=== PATIENT | female | born 1980 | race Caucasian/White ===

== ENCOUNTER 2017-07-27 09:16 | Emergency (ER) | payer SELFPAY ==
[~2017-07-27] VITALS: Ht 157.5 cm; Wt 65.5 kg
[2017-07-27 09:16] VITALS: BP 136/96
[2017-07-27] MEDS ORDERED: TESS100C PO (10:12)
[2017-07-27] MEDS ORDERED: AUGM875T28 PO (10:12)
[2017-07-27] MEDS ORDERED: DIFL150T PO (10:12)
== END 2017-07-27 10:19 | disposition home or self-care (01) ==
LOC: M ED 09:16
DX: J01.90 Acute sinusitis, unspecified (principal); F17.200 Nicotine dependence, unspecified, uncomplicated; Z86.73 Personal history of transient ischemic attack (TIA), and cerebral infarction without residual deficits; M19.90 Unspecified osteoarthritis, unspecified site; M54.9 Dorsalgia, unspecified; F41.9 Anxiety disorder, unspecified; F32.9 Major depressive disorder, single episode, unspecified

== ENCOUNTER 2017-09-14 12:29 | Emergency (ER) | payer SELFPAY ==
[~2017-09-14] VITALS: Ht 157.5 cm; Wt 150.0 kg
[~2017-09-14 12:29] MED LIST: AUGM875T28 PO; DIFL150T PO; TESS100C PO
[2017-09-14 12:45] VITALS: BP 142/88
[2017-09-14] MEDS ORDERED: FLON1SPR (14:25)
[2017-09-14] MEDS ORDERED: AUGM875T28 PO (14:25)
== END 2017-09-14 14:30 | disposition home or self-care (01) ==
LOC: M ED 12:29
DX: J01.90 Acute sinusitis, unspecified (principal); R05 Cough; F17.200 Nicotine dependence, unspecified, uncomplicated

== ENCOUNTER 2018-02-28 14:42 | Emergency (ER) | payer SELFPAY ==
[2018-02-28 16:13] LABS: BASO # 0.1 10^3/uL (0.0-0.2); BASO % 1.2 % (0.0-1.0); EOS # 0.1 10^3/uL (0.0-0.50); EOS % 1.4 % (0.0-3.0); HEMATOCRIT 40.6 % (36.0-47.0); HEMOGLOBIN 13.8 g/dl (12.0-15.5); IMMATURE GRANULOCYTE % 0.2 % (0-3.0); LYMPH # 2.3 10^3/uL (1.5-4.5); LYMPH % 45.4 % (24.0-44.0); MEAN CORPUSCULAR HEMOGLOBIN 31.4 pg (27.0-33.0); MEAN CORPUSCULAR VOLUME 92.3 fl (80.0-96.0); MONO # 0.6 10^3/uL (0.0-0.8); NEUTROPHILS # 2.1 10^3/uL (1.8-7.7); NEUTROPHILS % 40.8 % (36.0-66.0); PLATELET COUNT, AUTOMATED 332 10^3/uL (150-450); RED CELL DISTRIBUTION WIDTH 12.2 % (11.5-14.5)
[2018-02-28 16:21] LABS: INR 0.97
[2018-02-28 16:54] LABS: POS COUNT POS FLAG
[2018-02-28 17:21] LABS: ACETAMINOPHEN LEVEL < 2.0 UG/ML (10.0-30.0); ALBUMIN 3.4 GM/DL (3.2-5.2); ALBUMIN/GLOBULIN RATIO 0.97 (1.00-1.93); ALKALINE PHOSPHATASE 93 U/L (45-117); ALT/SGPT 24 U/L (12-78); ANION GAP 7 MEQ/L (8-16); AST/SGOT 15 U/L (7-37); BILIRUBIN,DIRECT < 0.1 MG/DL (0.0-0.2); BILIRUBIN,TOTAL 0.3 MG/DL (0.2-1.0); BLOOD UREA NITROGEN 11 MG/DL (7-18); CALCIUM LEVEL 8.6 MG/DL (8.5-10.1); CARBON DIOXIDE LEVEL 25 MEQ/L (21-32); CHLORIDE LEVEL 109 MEQ/L (98-107); CPK CREATINE PHOSPHOKINASE 42 U/L (26-192); CREATININE FOR GFR 0.89 MG/DL (0.55-1.30); ETHYL ALCOHOL (ETHANOL) < 0.003 % (0.000-0.010); GLOMERULAR FILTRATION RATE > 60.0 (>60); GLUCOSE, FASTING 79 MG/DL (70-100); POTASSIUM SERUM 3.8 MEQ/L (3.5-5.1); SALICYLATE LEVEL 1.9 MG/DL (5.0-30.0); SODIUM LEVEL 141 MEQ/L (136-145); TOTAL PROTEIN 6.9 GM/DL (6.4-8.2); TROPONIN I < 0.02 NG/ML (< 0.10)
[2018-02-28 17:22] LABS: CK-MB VALUE MASS < 1.0 NG/ML (<3.6); CONTROL LINE HCG INT CTR LINE PRESENT; HCG, SERUM QUALITATIVE NEGATIVE (NEGATIVE); MB/CK RELATIVE INDEX 2.38 (< OR =4)
== END 2018-02-28 21:38 | disposition left against medical advice (07) ==
LOC: M ED 21:38
DX: R20.2 Paresthesia of skin (principal); Z53.21 Procedure and treatment not carried out due to patient leaving prior to being seen by health care provider; Z86.73 Personal history of transient ischemic attack (TIA), and cerebral infarction without residual deficits; F17.200 Nicotine dependence, unspecified, uncomplicated; Z82.49 Family history of ischemic heart disease and other diseases of the circulatory system; Z82.3 Family history of stroke; Z80.9 Family history of malignant neoplasm, unspecified
CPT/HCPCS: 70551

== ENCOUNTER 2018-03-22 16:43 | Inpatient (IN) | payer SELFPAY ==
[2018-03-22] MEDS: cefTRIAXone SOD 2 GM in D5W MINI-BAG PLUS 50 ML IV (17:00)
[2018-03-22] MEDS: NS 1,800 ML in APPROPRIATE DILUENT 1 EA IV (17:00)
[2018-03-22] MEDS: ACETAMINOPHEN 325 MG TAB PO (17:08)
[2018-03-22 17:24] LABS: HEMATOCRIT 34.9 % (36.0-47.0); HEMOGLOBIN 12.2 g/dl (12.0-15.5); MEAN CORPUSCULAR VOLUME 88.8 fl (80.0-96.0); PLATELET COUNT, AUTOMATED 135 10^3/uL (150-450); RED BLOOD COUNT 3.93 10^6/uL (4.00-5.40); VENOUS BASE EXCESS -4.9 (-2.0-2.0); VENOUS HCO3 17.8 MEQ/L (23.0-27.0); VENOUS O2 SATURATION 90.6 % (60.0-80.0); VENOUS PARTIAL PRESSURE CO2 26.8 mmHg (38.0-50.0); VENOUS PARTIAL PRESSURE O2 56.1 mmHg (30.0-50.0); VENOUS PH 7.439 UNITS (7.330-7.430); VENOUS STANDARD HCO3 20.3 MEQ/L; VENOUS TOTAL CO2 18.6 MEQ/L (24.0-28.0); WHITE BLOOD COUNT 4.8 10^3/uL (4.0-10.0)
[2018-03-22 17:33] LABS: ADD MANUAL DIFFER YES; DIFF SLIDE NUMBER 277; INR 1.21; POSITIVE DIFF POS FLAG; POSITIVE MORPH POS FLAG; PROTHROMBIN TIME 15.5 SECONDS (12.4-14.5)
[2018-03-22 17:54] LABS: ALBUMIN 3.1 GM/DL (3.2-5.2); ALBUMIN/GLOBULIN RATIO 0.97 (1.00-1.93); ALKALINE PHOSPHATASE 167 U/L (45-117); ALT/SGPT 361 U/L (12-78); AMYLASE 54 U/L (25-115); ANION GAP 9 MEQ/L (8-16); AST/SGOT 701 U/L (7-37); BILIRUBIN,DIRECT 0.7 MG/DL (0.0-0.2); BILIRUBIN,TOTAL 1.4 MG/DL (0.2-1.0); BLOOD UREA NITROGEN 12 MG/DL (7-18); C REACTIVE PROTEIN QUANTITATIV 2.63 MG/DL (0.00-0.30); CARBON DIOXIDE LEVEL 21 MEQ/L (21-32); CHLORIDE LEVEL 107 MEQ/L (98-107); CPK CREATINE PHOSPHOKINASE 70 U/L (26-192); CREATININE FOR GFR 1.17 MG/DL (0.55-1.30); GLOMERULAR FILTRATION RATE 54.8 (>60); GLUCOSE, FASTING 102 MG/DL (70-100); SODIUM LEVEL 137 MEQ/L (136-145); TOTAL PROTEIN 6.3 GM/DL (6.4-8.2); TROPONIN I < 0.02 NG/ML (< 0.10)
[2018-03-22 17:55] LABS: CK-MB VALUE MASS < 1.0 NG/ML (<3.6); MB/CK RELATIVE INDEX 1.42 (< OR =4)
[2018-03-22 17:57] LABS: ACETAMINOPHEN LEVEL < 2.0 UG/ML (10.0-30.0); ETHYL ALCOHOL (ETHANOL) < 0.003 % (0.000-0.010); SALICYLATE LEVEL < 1.7 MG/DL (5.0-30.0)
[2018-03-22 18:00] LABS: LACTIC ACID SEPSIS PROTOCOL 4.9 MMOL/L (0.4-2.0)
[2018-03-22] MEDS ORDERED: IBUPROFEN 800 MG TAB As Ordered (18:15)
[2018-03-22] MEDS: VANCOMYCIN HCL 1,000 MG, VIAL MATE ADAPTER 1 EACH in D5W 250 ML IV ×2 (18:20→20:13)
[2018-03-22] MEDS: IBUPROFEN 800 MG TAB PO (18:20)
[2018-03-22] MEDS ORDERED: ISOVUE-370 76% 100ML VIAL (Q9967) As Ordered (18:27)
[2018-03-22 18:30] LABS: ATYPICAL LYMPH 2 % (0-5); BANDS 14 % (< 11); BASOPHILS 2 % (0-4); LYMPHOCYTES 13 % (16-52); METAMYELOCYTES 1 % (0-0); NEUTROPHILS 68 % (35-75)
[2018-03-22 18:31] LABS: PLATELET ESTIMATE DECREASED (NORMAL); TOXIC VACUOLATION 1+
[2018-03-22] MEDS: NS 1,000 ML IV ×2 (19:15→20:00)
[2018-03-22 19:22] LABS: APPEARANCE, URINE CLEAR (CLEAR); BACTERIA, URINE AUTO NEGATIVE (NEGATIVE); BILIRUBIN, URINE AUTO NEGATIVE (NEGATIVE); BLOOD, URINE BLOOD 1+ (NEGATIVE); COLOR, URINE AMBER (YELLOW); GLUCOSE, URINE (UA) AUTO NEGATIVE (NEGATIVE); KETONE, URINE AUTO NEGATIVE (NEGATIVE); LEUKOCYTE ESTERASE, URINE AUTO NEGATIVE (NEGATIVE); NITRITE, URINE AUTO NEGATIVE (NEGATIVE); PROTEIN, URINE AUTO 1+ mg/dL (NEGATIVE); RBC, URINE AUTO 3 /HPF (0-3); SPECIFIC GRAVITY URINE AUTO 1.014 (1.002-1.035); SQUAMOUS EPITHELIAL CELL UR AU 2 /HPF (0-6); WBC, URINE AUTO 1 /HPF (0-3)
[2018-03-22 19:45] LABS: HIV 1&2 SCREEN CENTAUR NEGATIVE (NEGATIVE)
[2018-03-22 20:06] LABS: AMPHETAMINES LEVEL URINE POSITIVE (NEGATIVE); BARBITURATES URINE NEGATIVE (NEGATIVE); BENZODIAZEPINES URINE NEGATIVE (NEGATIVE); CANNABINOIDS URINE NEGATIVE (NEGATIVE); COCAINE METABOLITE URINE NEGATIVE (NEGATIVE); METHADONE URINE NEGATIVE (NEGATIVE); OPIATES URINE NEGATIVE (NEGATIVE); PHENCYCLIDINE URINE NEGATIVE (NEGATIVE)
[2018-03-22 20:31] LABS: MAGNESIUM LEVEL 1.5 MG/DL (1.8-2.4)
[2018-03-22] MEDS: PIPERACILLIN/TAZOBACTAM SOD 3.375 GM in D5W MINI-BAG PLUS 50 ML IV (23:48)
[2018-03-23] MEDS: MAG SULF 1GM/100ML (MAG RUN) 1 GM in APPROPRIATE DILUENT 1 EA IV (01:29)
[2018-03-23 04:30] LABS: HEMATOCRIT 31.5 % (36.0-47.0); HEMOGLOBIN 10.9 g/dl (12.0-15.5); MEAN CORPUSCULAR HEMOGLOBIN 31.3 pg (27.0-33.0); MEAN CORPUSCULAR HGB CONC 34.6 g/dl (32.0-36.5); MEAN CORPUSCULAR VOLUME 90.5 fl (80.0-96.0); PLATELET COUNT, AUTOMATED 104 10^3/uL (150-450); RED BLOOD COUNT 3.48 10^6/uL (4.00-5.40); RED CELL DISTRIBUTION WIDTH 12.6 % (11.5-14.5)
[2018-03-23 04:34] LABS: POSITIVE MORPH POS FLAG
[2018-03-23 04:35] LABS: ADD MANUAL DIFFER YES; DIFF SLIDE NUMBER 59
[2018-03-23 04:48] LABS: ALBUMIN 2.3 GM/DL (3.2-5.2); ALBUMIN/GLOBULIN RATIO 0.77 (1.00-1.93); ALKALINE PHOSPHATASE 105 U/L (45-117); ALT/SGPT 224 U/L (12-78); ANION GAP 7 MEQ/L (8-16); AST/SGOT 255 U/L (7-37); BLOOD UREA NITROGEN 13 MG/DL (7-18); CALCIUM LEVEL 7.1 MG/DL (8.5-10.1); CARBON DIOXIDE LEVEL 20 MEQ/L (21-32); CHLORIDE LEVEL 114 MEQ/L (98-107); CREATININE FOR GFR 0.93 MG/DL (0.55-1.30); GLOMERULAR FILTRATION RATE > 60.0 (>60); GLUCOSE, FASTING 97 MG/DL (70-100); POTASSIUM SERUM 4.2 MEQ/L (3.5-5.1); SODIUM LEVEL 141 MEQ/L (136-145); TOTAL PROTEIN 5.3 GM/DL (6.4-8.2)
[2018-03-23 04:58] LABS: BANDS 11 % (< 11); EOSINOPHILS 1 % (0-5); LYMPHOCYTES 3 % (16-52); METAMYELOCYTES 4 % (0-0); MONOCYTES 3 % (0-8); MYELOCYTES 1 % (0-0); NEUTROPHILS 77 % (35-75)
[2018-03-23 05:00] LABS: PLATELET ESTIMATE DECREASED (NORMAL); TOXIC VACUOLATION 1+
[2018-03-23] MEDS: PIPERACILLIN/TAZOBACTAM SOD 3.375 GM in D5W MINI-BAG PLUS 50 ML IV ×4 (05:16→23:58)
[2018-03-23] MEDS: NS 1,000 ML IV ×2 (05:16→12:11)
[2018-03-23 06:54] LABS: MAGNESIUM LEVEL 2.1 MG/DL (1.8-2.4)
[2018-03-23] MEDS: ENOXAPARIN 40 MG/0.4 ML SYRINGE (J1650) SC (09:12)
[2018-03-23] MEDS: VANCOMYCIN HCL 1,000 MG, VIAL MATE ADAPTER 1 EACH in D5W 250 ML IV ×2 (09:13→20:51)
[2018-03-23] MEDS: PANTOPRAZOLE 40MG TAB (PROTONIX) PO (09:13)
[2018-03-23] MEDS: ACETAMINOPHEN TAB 650MG DOSE (2X325MG) PO ×3 (12:12→20:52)
[2018-03-24] MEDS: PIPERACILLIN/TAZOBACTAM SOD 3.375 GM in D5W MINI-BAG PLUS 50 ML IV ×4 (05:45→23:46)
[2018-03-24 05:46] LABS: HEMATOCRIT 30.9 % (36.0-47.0); HEMOGLOBIN 10.6 g/dl (12.0-15.5); MEAN CORPUSCULAR HEMOGLOBIN 31.2 pg (27.0-33.0); MEAN CORPUSCULAR HGB CONC 34.3 g/dl (32.0-36.5); MEAN CORPUSCULAR VOLUME 90.9 fl (80.0-96.0); RED CELL DISTRIBUTION WIDTH 12.7 % (11.5-14.5); WHITE BLOOD COUNT 11.2 10^3/uL (4.0-10.0)
[2018-03-24 06:08] LABS: ALBUMIN 2.2 GM/DL (3.2-5.2); ALBUMIN/GLOBULIN RATIO 0.71 (1.00-1.93); ALKALINE PHOSPHATASE 87 U/L (45-117); ALT/SGPT 135 U/L (12-78); ANION GAP 6 MEQ/L (8-16); AST/SGOT 86 U/L (7-37); BLOOD UREA NITROGEN 13 MG/DL (7-18); C REACTIVE PROTEIN QUANTITATIV 9.71 MG/DL (0.00-0.30); CALCIUM LEVEL 7.6 MG/DL (8.5-10.1); CARBON DIOXIDE LEVEL 22 MEQ/L (21-32); CHLORIDE LEVEL 116 MEQ/L (98-107); CREATININE FOR GFR 0.83 MG/DL (0.55-1.30); GLOMERULAR FILTRATION RATE > 60.0 (>60); GLUCOSE, FASTING 88 MG/DL (70-100); POTASSIUM SERUM 3.8 MEQ/L (3.5-5.1); SODIUM LEVEL 144 MEQ/L (136-145); TOTAL PROTEIN 5.3 GM/DL (6.4-8.2)
[2018-03-24] MEDS: IBUPROFEN 400 MG TAB PO (06:17)
[2018-03-24 06:24] LABS: ADD MANUAL DIFFER YES; DIFF SLIDE NUMBER 36; IMMATURE PLATELET FRACTION % 2.1 % (0.0-9.6); PLATELET COUNT, AUTOMATED 99 10^3/uL (150-450); POSITIVE MORPH POS FLAG
[2018-03-24 06:26] LABS: ATYPICAL LYMPH 1 % (0-5); EOSINOPHILS 4 % (0-5); LYMPHOCYTES 27 % (16-52); MONOCYTES 5 % (0-8); NEUTROPHILS 63 % (35-75); PLATELET ESTIMATE DECREASED (NORMAL)
[2018-03-24 06:33] LABS: BILIRUBIN,TOTAL 0.3 MG/DL (0.2-1.0)
[2018-03-24 06:37] LABS: CK-MB VALUE MASS < 1.0 NG/ML (<3.6); CPK CREATINE PHOSPHOKINASE 32 U/L (26-192); MB/CK RELATIVE INDEX 3.12 (< OR =4); TROPONIN I < 0.02 NG/ML (< 0.10)
[2018-03-24 08:18] LABS: VANCOMYCIN LEVEL TROUGH 6.1 UG/ML (10.0-20.0)
[2018-03-24] MEDS: ONDANSETRON 4MG/2ML VIAL (J2405) IV (08:25)
[2018-03-24] MEDS: VANCOMYCIN HCL 1,000 MG, VIAL MATE ADAPTER 1 EACH in D5W 250 ML IV ×2 (09:19→16:40)
[2018-03-24] MEDS: PANTOPRAZOLE 40MG TAB (PROTONIX) PO (09:22)
[2018-03-24] MEDS: ENOXAPARIN 40 MG/0.4 ML SYRINGE (J1650) SC (09:22)
[2018-03-24] MEDS: ACETAMINOPHEN TAB 650MG DOSE (2X325MG) PO ×3 (09:23→21:17)
[2018-03-25] MEDS: VANCOMYCIN HCL 1,000 MG, VIAL MATE ADAPTER 1 EACH in D5W 250 ML IV (01:19)
[2018-03-25] MEDS: PIPERACILLIN/TAZOBACTAM SOD 3.375 GM in D5W MINI-BAG PLUS 50 ML IV (05:21)
[2018-03-25 07:06] LABS: HEMATOCRIT 31.6 % (36.0-47.0); MEAN CORPUSCULAR HEMOGLOBIN 30.9 pg (27.0-33.0); MEAN CORPUSCULAR HGB CONC 34.8 g/dl (32.0-36.5); MEAN CORPUSCULAR VOLUME 88.8 fl (80.0-96.0); PLATELET COUNT, AUTOMATED 146 10^3/uL (150-450); RED BLOOD COUNT 3.56 10^6/uL (4.00-5.40); RED CELL DISTRIBUTION WIDTH 12.5 % (11.5-14.5); WHITE BLOOD COUNT 6.8 10^3/uL (4.0-10.0)
[2018-03-25 07:24] LABS: ANION GAP 8 MEQ/L (8-16); BLOOD UREA NITROGEN 8 MG/DL (7-18); CALCIUM LEVEL 7.9 MG/DL (8.5-10.1); CARBON DIOXIDE LEVEL 22 MEQ/L (21-32); CHLORIDE LEVEL 113 MEQ/L (98-107); CREATININE FOR GFR 0.87 MG/DL (0.55-1.30); GLOMERULAR FILTRATION RATE > 60.0 (>60); GLUCOSE, FASTING 97 MG/DL (70-100); POTASSIUM SERUM 3.8 MEQ/L (3.5-5.1); SODIUM LEVEL 143 MEQ/L (136-145)
[2018-03-25] MEDS: ENOXAPARIN 40 MG/0.4 ML SYRINGE (J1650) SC (09:24)
[2018-03-25] MEDS: PANTOPRAZOLE 40MG TAB (PROTONIX) PO (09:24)
[2018-03-25 11:05] LABS: HEPATITIS B SURFACE ANTIGEN NEGATIVE (NEGATIVE)
[2018-03-25 11:33] LABS: HEPATITIS B CORE ANTIBODY IGM NEGATIVE (NEGATIVE)
[2018-03-25 11:34] LABS: HEPATITIS A ANTIBODY IGM NEGATIVE (NEGATIVE)
== END 2018-03-25 11:20 | disposition home or self-care (01) | DRG 812 ==
LOC: M ED 16:43 → M ED INP 19:36 → M PCU 21:55
PROVIDERS: Hospitalist
DX: T40.3X4A Poisoning by methadone, undetermined, initial encounter (principal); R65.11 Systemic inflammatory response syndrome (SIRS) of non-infectious origin with acute organ dysfunction; E87.2 Acidosis; F17.200 Nicotine dependence, unspecified, uncomplicated; Y92.009 Unspecified place in unspecified non-institutional (private) residence as the place of occurrence of the external cause

== ENCOUNTER 2018-08-29 22:57 | Emergency (ER) | payer SELFPAY ==
[2018-08-30 00:31] LABS: BASO % 0.6 % (0.0-1.0); EOS % 0.3 % (0.0-3.0); HEMATOCRIT 37.2 % (36.0-47.0); HEMOGLOBIN 13.3 g/dl (12.0-15.5); IMMATURE GRANULOCYTE % 0.8 % (0-3.0); LYMPH # 1.6 10^3/uL (1.5-4.5); MEAN CORPUSCULAR HEMOGLOBIN 31.9 pg (27.0-33.0); MEAN CORPUSCULAR HGB CONC 35.8 g/dl (32.0-36.5); MEAN CORPUSCULAR VOLUME 89.2 fl (80.0-96.0); MONO # 0.5 10^3/uL (0.0-0.8); MONO % 8.1 % (0.0-5.0); NEUTROPHILS # 4.1 10^3/uL (1.8-7.7); NEUTROPHILS % 64.2 % (36.0-66.0); PLATELET COUNT, AUTOMATED 293 10^3/uL (150-450); RED BLOOD COUNT 4.17 10^6/uL (4.00-5.40); RED CELL DISTRIBUTION WIDTH 11.5 % (11.5-14.5); WHITE BLOOD COUNT 6.3 10^3/uL (4.0-10.0)
[2018-08-30] MEDS: ACYCLOVIR 200 MG CAPSULE PO (01:20)
[2018-08-30] MEDS: GABAPENTIN 300 MG CAP PO (01:20)
[2018-08-30] MEDS: BACTRIM 160MG/800MG DS TAB PO (01:20)
[2018-08-30 11:06] LABS: PROLACTIN 16.5 NG/ML
== END 2018-08-30 02:03 | disposition home or self-care (01) ==
LOC: M ED 08-30 02:03
DX: R21 Rash and other nonspecific skin eruption (principal); N64.52 Nipple discharge; H66.91 Otitis media, unspecified, right ear; Z86.73 Personal history of transient ischemic attack (TIA), and cerebral infarction without residual deficits; F15.10 Other stimulant abuse, uncomplicated
CPT/HCPCS: 76642

== ENCOUNTER 2018-11-26 10:01 | Emergency (ER) | payer SELFPAY ==
[~2018-11-26] VITALS: Ht 157.5 cm; Wt 60.5 kg
[~2018-11-26 10:01] MED LIST changes: +BACT800T5 PO; +FLON1SPR; +NEUR300C PO; +ZOVI800T PO
[2018-11-26 11:02] LABS: BASO % 0.3 % (0.0-1.0); EOS % 0.4 % (0.0-3.0); HEMATOCRIT 35.4 % (36.0-47.0); HEMOGLOBIN 12.7 g/dl (12.0-15.5); LYMPH % 28.4 % (24.0-44.0); MEAN CORPUSCULAR HEMOGLOBIN 32.6 pg (27.0-33.0); MEAN CORPUSCULAR HGB CONC 35.9 g/dl (32.0-36.5); MEAN CORPUSCULAR VOLUME 90.8 fl (80.0-96.0); MONO # 0.7 10^3/uL (0.0-0.8); MONO % 9.8 % (0.0-5.0); NEUTROPHILS # 4.2 10^3/uL (1.8-7.7); NEUTROPHILS % 60.8 % (36.0-66.0); PLATELET COUNT, AUTOMATED 267 10^3/uL (150-450); WHITE BLOOD COUNT 6.9 10^3/uL (4.0-10.0)
[2018-11-26 11:40] LABS: ALBUMIN 3.9 GM/DL (3.2-5.2); ALT/SGPT 27 U/L (12-78); BILIRUBIN,DIRECT 0.1 MG/DL (0.0-0.2); BILIRUBIN,TOTAL 0.3 MG/DL (0.2-1.0); BLOOD UREA NITROGEN 7 MG/DL (7-18); CALCIUM LEVEL 9.2 MG/DL (8.5-10.1); CARBON DIOXIDE LEVEL 26 MEQ/L (21-32); CHLORIDE LEVEL 107 MEQ/L (98-107); CREATININE FOR GFR 0.67 MG/DL (0.55-1.30); GLOMERULAR FILTRATION RATE > 60.0 (>58); GLUCOSE, FASTING 98 MG/DL (70-100); POTASSIUM SERUM 3.6 MEQ/L (3.5-5.1); SODIUM LEVEL 139 MEQ/L (136-145); TOTAL PROTEIN 7.3 GM/DL (6.4-8.2)
--- NOTE | 2018-11-26 11:52 | REP ---
RIGHT UPPER QUADRANT SONOGRAPHY: HISTORY: Right upper quadrant pain. FINDINGS: Scanning through the right upper quadrant of the abdomen demonstrates a normal-sized, homogeneous liver without focal liver lesion. The gallbladder is surgically absent. Common bile duct is normal measuring 0.4 cm in greatest diameter. Tail of the pancreas is obscured by abdominal gas. No pancreatic abnormalities observed. There is no evidence of ascites. The right kidney has a normal appearance measuring 10.6 x 5.0 x 3.5 cm. IMPRESSION: Normal right upper quadrant sonography post cholecystectomy. Electronically Signed by Rick Ricks MD 11/26/2018 08:33 P
[2018-11-26] MEDS ORDERED: PENI500T PO (12:29)
[2018-11-26 12:32] VITALS: BP 124/77
== END 2018-11-26 12:37 | disposition home or self-care (01) ==
LOC: M ED 10:01
DX: R10.11 Right upper quadrant pain (principal); K04.7 Periapical abscess without sinus; F15.20 Other stimulant dependence, uncomplicated; F17.210 Nicotine dependence, cigarettes, uncomplicated

== ENCOUNTER 2018-12-25 09:55 | Emergency (ER) | payer OTHER, SELFPAY ==
[~2018-12-25] VITALS: Ht 157.5 cm; Wt 58.6 kg
[~2018-12-25 09:55] MED LIST changes: +PENI500T PO
[2018-12-25] MEDS ORDERED: KETOROLAC 60 MG/2 ML VIAL (J1885) IM ONE (10:15)
[2018-12-25] MEDS ORDERED: PERCOCET 5MG/325MG TAB PO ONE (10:15)
[2018-12-25] MEDS ORDERED: ADACEL/BOOSTRIX VACCINE (DIPHTH/PERTUSS/ACELL/TETANUS)0.5ML SYR (90715) IM ONE (10:30)
[2018-12-25 11:45] VITALS: BP 107/66
[2018-12-25] MEDS ORDERED: NAPR-50 PO (11:51)
== END 2018-12-25 11:59 | disposition home or self-care (01) ==
LOC: EDBD 09:55 → M ED 09:55
DX: T24.001A Burn of unspecified degree of unspecified site of right lower limb, except ankle and foot, initial encounter (principal); X08.8XXA Exposure to other specified smoke, fire and flames, initial encounter; Y92.019 Unspecified place in single-family (private) house as the place of occurrence of the external cause; Z28.21 Immunization not carried out because of patient refusal
CPT/HCPCS: 96372; 99284; J1885

== ENCOUNTER 2019-01-23 15:10 | Emergency (ER) | payer MEDICAID, SELFPAY ==
[~2019-01-23] VITALS: Ht 157.5 cm; Wt 62.5 kg
[~2019-01-23 15:10] MED LIST changes: +NAPR-837 PO
[2019-01-23] MEDS ORDERED: BACITRACIN OINT 30GM TOP STA (16:23)
[2019-01-23] MEDS ORDERED: BACTRIM 160MG/800MG DS TAB PO ONE (16:30)
[2019-01-23] MEDS ORDERED: GABAPENTIN 300 MG CAP PO ONE (16:30)
[2019-01-23] MEDS ORDERED: NEOSPORIN OINT 0.9 GM PKT (FLOOR STOCK) As Ordered ONE (16:31)
[2019-01-23] MEDS ORDERED: BACT800T5 PO (16:58)
[2019-01-23] MEDS ORDERED: BACI500O8 TOP (16:58)
[2019-01-23] MEDS ORDERED: KETOROLAC 60 MG/2 ML VIAL (J1885) IM ONE (17:00)
[2019-01-23 17:25] VITALS: BP 109/70
== END 2019-01-23 17:29 | disposition home or self-care (01) ==
LOC: M ED 15:10
DX: L03.818 Cellulitis of other sites (principal); A49.02 Methicillin resistant Staphylococcus aureus infection, unspecified site; B19.20 Unspecified viral hepatitis C without hepatic coma; F17.210 Nicotine dependence, cigarettes, uncomplicated
CPT/HCPCS: 96372; 99283; J1885

== ENCOUNTER 2019-03-13 12:06 | Emergency (ER) | payer MEDICAID, OTHER ==
[~2019-03-13] VITALS: Ht 157.5 cm; Wt 61.2 kg
[~2019-03-13 12:06] MED LIST changes: +BACI500O8 TOP
[2019-03-13] MEDS ORDERED: ALLE12TA31 PO (13:20)
[2019-03-13] MEDS ORDERED: AFRI0.058 (13:20)
[2019-03-13 13:38] VITALS: BP 112/77
== END 2019-03-13 14:32 | disposition home or self-care (01) ==
LOC: M ED 12:06
DX: J30.9 Allergic rhinitis, unspecified (principal)

== ENCOUNTER 2019-03-30 11:29 | Emergency (ER) | payer OTHER ==
[~2019-03-30] VITALS: Ht 157.5 cm; Wt 61.8 kg
[~2019-03-30 11:29] MED LIST changes: +AFRI0.058; +ALLE12TA31 PO
[2019-03-30] MEDS ORDERED: ASPI81CH33 PO (11:37)
[2019-03-30] MEDS ORDERED: CEFTAROLINE FOSAMIL 600 MG in D5W MINI-BAG PLUS 50 ML IV ONE (12:00)
[2019-03-30 12:20] LABS: BASO % 0.3 % (0.0-1.0); EOS % 0.2 % (0.0-3.0); HEMATOCRIT 41.4 % (36.0-47.0); HEMOGLOBIN 13.9 g/dl (12.0-15.5); LYMPH # 2.2 10^3/uL (1.5-4.5); MEAN CORPUSCULAR HEMOGLOBIN 30.5 pg (27.0-33.0); MEAN CORPUSCULAR HGB CONC 33.6 g/dl (32.0-36.5); MEAN CORPUSCULAR VOLUME 90.8 fl (80.0-96.0); MONO % 7.9 % (0.0-5.0); NEUTROPHILS # 9.4 10^3/uL (1.8-7.7); NEUTROPHILS % 74.1 % (36.0-66.0); PLATELET COUNT, AUTOMATED 307 10^3/uL (150-450); RED BLOOD COUNT 4.56 10^6/uL (4.00-5.40); WHITE BLOOD COUNT 12.7 10^3/uL (4.0-10.0)
[2019-03-30 12:45] LABS: ALBUMIN 3.7 GM/DL (3.2-5.2); ALT/SGPT 152 U/L (12-78); BILIRUBIN,DIRECT 0.1 MG/DL (0.0-0.2); BILIRUBIN,TOTAL 0.4 MG/DL (0.2-1.0); BLOOD UREA NITROGEN 12 MG/DL (7-18); CALCIUM LEVEL 9.2 MG/DL (8.5-10.1); CARBON DIOXIDE LEVEL 28 MEQ/L (21-32); CHLORIDE LEVEL 106 MEQ/L (98-107); CREATININE FOR GFR 0.91 MG/DL (0.55-1.30); GLOMERULAR FILTRATION RATE > 60.0 (>58); GLUCOSE, FASTING 91 MG/DL (70-100); POTASSIUM SERUM 3.9 MEQ/L (3.5-5.1); SODIUM LEVEL 143 MEQ/L (136-145); TOTAL PROTEIN 7.9 GM/DL (6.4-8.2)
[2019-03-30] MEDS ORDERED: ISOVUE-370 76% 100ML VIAL (Q9967) As Ordered ONE (12:50)
[2019-03-30] MEDS ORDERED: BACTRIM 160MG/800MG DS TAB PO ONE (13:45)
[2019-03-30 13:48] VITALS: BP 119/70
[2019-03-30] MEDS ORDERED: BACT800T5 PO (13:49)
--- NOTE | 2019-03-30 14:07 | REP ---
MAXILLOFACIAL CT WITH CONTRAST: HISTORY: Left check cellulitis. CONTRAST: Isovue 370, 75 mL. Minimal mucosal thickening is present in the left maxillary and right sphenoid sinuses. The remaining sinuses are clear. The ostiomeatal units are patent. The middle and inferior nasal turbinates are partially paradoxical. There is felicia bullosa of the right middle nasal turbinate. There is mild deviation of the nasal septum to the left. The cribriform plate, medial pitts of the orbits and optic canals are intact. There is aeration of the left anterior clinoid process. The carotid canals form a segment of the posterolateral pitts of the sphenoid sinus. The sphenoid sinus septa inserts into the left internal carotid canal wall. There is minimal soft tissue thickening along the buccal surface of the left maxilla and body of the left mandible. This represents a small phlegmon. There is thickening of the left platysma muscle. Stranding is present in the overlying subcutaneous tissue. These findings are consistent with edema. The naso- and hypopharynx and larynx are normal in appearance. The salivary glands are normal in size and density. An enlarged lymph node 1.1 cm in width is present in the submental area. Small lymph nodes less than 1 cm in size are present in the internal jugular chains, posterior triangles, and submandibular areas. IMPRESSION: 1. Sinus mucosal thickening as described above. 2. There is minimal soft tissue thickening along the buccal surface of the left maxilla and body of the mandible consistent with a small phlegmon. Electronically Signed by González Lima MD 03/30/2019 02:09 P
[2019-03-31] MEDS ORDERED: BAYE325T16 PO (18:35)
== END 2019-03-30 14:02 | disposition home or self-care (01) ==
LOC: M ED 11:29
DX: L03.211 Cellulitis of face (principal); Z86.73 Personal history of transient ischemic attack (TIA), and cerebral infarction without residual deficits; M54.9 Dorsalgia, unspecified; F41.9 Anxiety disorder, unspecified; Z72.0 Tobacco use; F15.10 Other stimulant abuse, uncomplicated; F16.10 Hallucinogen abuse, uncomplicated
CPT/HCPCS: 70487; 80048; 80076; 83605; 85025; 86140; 87040; 96365; 99284; J0712; Q9967

== ENCOUNTER 2019-03-30 21:51 | Emergency (ER) | payer OTHER, SELFPAY ==
[~2019-03-30 21:51] MED LIST changes: +ASPI81CH33 PO
[2019-03-30] MEDS ORDERED: ONDANSETRON 4MG/2ML VIAL (J2405) IV ONE (22:15)
[2019-03-30] MEDS ORDERED: MORPHINE 4 MG/ML 1ML VIAL/SYRINGE (J2270) IV ONE (22:15)
[2019-03-30] MEDS ORDERED: ACETAMINOPHEN 325 MG/10.15 ML UDC PO ONE (22:15)
[2019-03-30] MEDS ORDERED: CLINDAMYCIN 900 MG in APPROPRIATE DILUENT 1 EA IV ONE (22:15)
[2019-03-30] MEDS ORDERED: LORazepam 2 MG TAB PO ONE (22:30)
[2019-03-30 23:43] VITALS: BP 130/70
[2019-03-30] MEDS ORDERED: CLINDAMYCIN 150 MG CAP PO ONE (23:45)
[2019-03-30] MEDS ORDERED: OXYCODONE/APAP 5MG/325MG(BULK FOR ED) 1 TABLET PO ONE (23:45)
[2019-03-31] MEDS ORDERED: BAYE325T16 PO (18:35)
== END 2019-03-31 00:32 | disposition home or self-care (01) ==
LOC: M ED 21:51
DX: K04.7 Periapical abscess without sinus (principal); R68.84 Jaw pain; L03.211 Cellulitis of face; B19.20 Unspecified viral hepatitis C without hepatic coma; Z72.0 Tobacco use; Z79.82 Long term (current) use of aspirin
CPT/HCPCS: 96374; 96375; 99284; J2270; J2405

== ENCOUNTER 2019-03-31 14:29 | Inpatient (IN) | payer MEDICAID, OTHER, SELFPAY ==
[~2019-03-31] VITALS: Ht 157.5 cm; Wt 62.8 kg
[2019-03-31] MEDS ORDERED: NS 1,000 ML IV ONE (16:45)
[2019-03-31 17:29] LABS: BASO % 0.2 % (0.0-1.0); EOS # 0.1 10^3/uL (0.0-0.50); EOS % 0.3 % (0.0-3.0); HEMOGLOBIN 13.2 g/dl (12.0-15.5); LYMPH % 11.6 % (24.0-44.0); MEAN CORPUSCULAR HEMOGLOBIN 30.5 pg (27.0-33.0); MEAN CORPUSCULAR HGB CONC 33.8 g/dl (32.0-36.5); MEAN CORPUSCULAR VOLUME 90.1 fl (80.0-96.0); MONO # 1.2 10^3/uL (0.0-0.8); MONO % 6.9 % (0.0-5.0); NEUTROPHILS # 13.9 10^3/uL (1.8-7.7); NEUTROPHILS % 80.4 % (36.0-66.0); PLATELET COUNT, AUTOMATED 251 10^3/uL (150-450); RED BLOOD COUNT 4.33 10^6/uL (4.00-5.40); WHITE BLOOD COUNT 17.3 10^3/uL (4.0-10.0)
[2019-03-31 17:57] LABS: ALBUMIN 3.6 GM/DL (3.2-5.2); ALT/SGPT 281 U/L (12-78); BILIRUBIN,DIRECT 0.3 MG/DL (0.0-0.2); BILIRUBIN,TOTAL 0.9 MG/DL (0.2-1.0); BLOOD UREA NITROGEN 10 MG/DL (7-18); CARBON DIOXIDE LEVEL 25 MEQ/L (21-32); CHLORIDE LEVEL 102 MEQ/L (98-107); GLOMERULAR FILTRATION RATE > 60.0 (>58); GLUCOSE, FASTING 82 MG/DL (70-100); SODIUM LEVEL 135 MEQ/L (136-145); TOTAL PROTEIN 7.3 GM/DL (6.4-8.2)
[2019-03-31] MEDS ORDERED: CEFTAROLINE FOSAMIL 600 MG in D5W MINI-BAG PLUS 50 ML IV ONE (18:15)
[2019-03-31] MEDS ORDERED: BAYE325T16 PO (18:35)
[2019-03-31] MEDS ORDERED: KETOROLAC 30 MG/ML VIAL (J1885) IV ONE (19:45)
[2019-03-31] MEDS ORDERED: NS 800 ML IV SCH (21:00)
[2019-03-31] MEDS ORDERED: ACETAMINOPHEN TAB 650MG DOSE (2X325MG) PO PRN (21:00)
[2019-03-31 21:14] LABS: ERYTHROCYTE SEDIMENTATION RATE 43 mm/hr (0-20)
--- NOTE | 2019-03-31 21:40 | HPEPDOC ---
[facility] Medical History & Physical Date of Admission Mar 31, 2019 Date of Service: Mar 31, 2019 History and Physical CHIEF COMPLAINT: L. sided facial swelling HISTORY OF PRESENT ILLNESS: Patient is a 38-year-old female with past medical history of IVDU, endocarditis, hepatitis C, and pancreatitis, fatty liver presented to ER with complaints of worsening left-sided facial swelling. Symptoms started about 2-3 days prior when she woke up with swelling on her face. She cam into the ER yesterday and received clindamycin, however did not improve and came back today. WBC went up from 12->17, T 100.7 and tachycardic HR 120. Pain and swellling reportedly had gotten worse with associated subject fevers but otherwise denies any other complaints. Does not recall any injury to the face fo pest bites that she noticed while she was sleeping. PAST MEDICAL HISTORY: Refer to [facility] PAST SURGICAL HISTORY: GB tumor s/p cholecystectomy, Tubal ligation x2 R. knee surgery Appendectomy SOCIAL HISTORY: Smokes 1ppd. Uses ecstacy and IV meth. Social alcohol. FAMILY HISTORY: Father DM Mother breast ca ALLERGIES: Please see below. REVIEW OF SYSTEMS: 10 point review of system negative except as stated in HPI HOME MEDICATIONS: Please see below. PHYSICAL EXAMINATION: General: Significant L. facial swelling with erythema. Appear uncomfortable, fidgety. Eyes: Normal sclera, EOMI, BLANCA HENT: L. facial swelling with erythema, neck supple, moist mucous membranes Cardiovascular: Tachycardic. No LE swelling. Pulmonary: Clear to auscultation b/l, no wheezing GI: Soft, nontender, nondistended Skin: Warm and dry. L. face swelling with erythema. Neuro: CN grossly intact. No focal deficits. Strengths equal b/l. Psych: oriented x 3 LABORATORY DATA: See below. IMAGING: Maxilofacial CT- MICROBIOLOGY: Please see below. ASSESSMENT AND PLAN: 1. L. facial cellulitis - Likely 2/2 insect bite while sleeping? - Did not improve after clindamycin yesterday in ER. - Given leukocytosis, fevers, and tachycardia. Treat with 30cc/kg IVF bolus. - lactic acid WNL. - c/w Ceftaroline. 2. IVDU 3. Hep C - Has not been treated but has outpatient follow up. 4. Fatty liver - Hep C vs. alcohol? - Will place on CIWA for withdrawal precaution. DVT ppx: Lovenox and SCD Code status: Full code Vital Signs Vital Signs Date Time Temp Pulse Resp B/P (MAP) Pulse Ox O2 Delivery O2 Flow Rate FiO2 03/31/19 19:28 100.7 117 20 121/80 (94) 98 Room Air Laboratory Data Labs 24H Laboratory Tests 2 03/31/19 17:04: Immature Granulocyte % (Auto) 0.6, White Blood Count 17.3H, Red Blood Count 4.33, Hemoglobin 13.2, Hematocrit 39.0, Mean Corpuscular Volume 90.1, Mean Corpuscular Hemoglobin 30.5, Mean Corpuscular Hemoglobin Concent 33.8, Red Cell Distribution Width 13.5, Platelet Count 251, Neutrophils (%) (Auto) 80.4H, Lymphocytes (%) (Auto) 11.6L, Monocytes (%) (Auto) 6.9H, Eosinophils (%) (Auto) 0.3, Basophils (%) (Auto) 0.2, Neutrophils # (Auto) 13.9H, Lymphocytes # (Auto) 2.0, Monocytes # (Auto) 1.2H, Eosinophils # (Auto) 0.1, Basophils # (Auto) 0.0, Nucleated Red Blood Cells % (auto) 0.0, Erythrocyte Sedimentation Rate 43H, Anion Gap 8, Glomerular Filtration Rate > 60.0, Calcium Level 9.0, Aspartate Amino Transf (AST/SGOT) 219H, Alanine Aminotransferase (ALT/SGPT) 281H, Alkaline Phosphatase 143H, Total Bilirubin 0.9#, Direct Bilirubin 0.3H, C-Reactive Protein, Quantitative 13.80H, Total Protein 7.3, Albumin 3.6, Albumin/Globulin Ratio 0.97L 03/31/19 18:49: Lactic Acid Level 1.1 CBC/BMP Laboratory Tests 03/31/19 17:04 Red Blood Count 4.33, Mean Corpuscular Volume 90.1, Mean Corpuscular Hemoglobin 30.5, Mean Corpuscular Hemoglobin Concent 33.8, Red Cell Distribution Width 13.5, Neutrophils (%) (Auto) 80.4 H, Lymphocytes (%) (Auto) 11.6 L, Monocytes (%) (Auto) 6.9 H, Eosinophils (%) (Auto) 0.3, Basophils (%) (Auto) 0.2, Neutrophils # (Auto) 13.9 H, Lymphocytes # (Auto) 2.0, Monocytes # (Auto) 1.2 H, Eosinophils # (Auto) 0.1, Basophils # (Auto) 0.0 Microbiology Microbiology 03/31/19 Blood Culture, Received Pending 03/31/19 Blood Culture, Received Pending 03/31/19 Gram Stain, Received Pending 03/31/19 Wound Culture, Received Pending Home Medications Scheduled PRN Aspirin (Aspirin) 325 Mg Tablet, 650 MG PO Q4-6H PRN for PAIN Allergies Coded Allergies: No Known Allergies (Unverified , 07/27/17) A-FIB/CHADSVASC A-FIB History Current/History of A-Fib/PAF?: No WADE PHELAN MD Mar 31, 2019 21:40
[2019-03-31 22:37] VITALS: BP 104/59
[2019-03-31 23:00] VITALS: BP 105/63
[2019-03-31] MEDS ORDERED: NS 1,000 ML IV SCH (23:15)
[2019-04-01] VITALS (8 sets, daily range): BP systolic 102–127; BP diastolic 59–76
[2019-04-01] MEDS ORDERED: traMADol 50 MG TAB PO PRN (03:30)
[2019-04-01] MEDS ORDERED: MORPHINE 4 MG/ML 1ML VIAL/SYRINGE (J2270) IV PRN (03:30)
[2019-04-01] MEDS: CEFTAROLINE FOSAMIL 600 MG in D5W MINI-BAG PLUS 50 ML IV SCH ×2 (06:16→18:05)
[2019-04-01 06:46] LABS: HEMATOCRIT 34.2 % (36.0-47.0); HEMOGLOBIN 11.4 g/dl (12.0-15.5); MEAN CORPUSCULAR HEMOGLOBIN 29.5 pg (27.0-33.0); MEAN CORPUSCULAR HGB CONC 33.3 g/dl (32.0-36.5); MEAN CORPUSCULAR VOLUME 88.4 fl (80.0-96.0); PLATELET COUNT, AUTOMATED 225 10^3/uL (150-450); RED BLOOD COUNT 3.87 10^6/uL (4.00-5.40); WHITE BLOOD COUNT 12.2 10^3/uL (4.0-10.0)
[2019-04-01 07:12] LABS: BLOOD UREA NITROGEN 10 MG/DL (7-18); CALCIUM LEVEL 8.1 MG/DL (8.5-10.1); CARBON DIOXIDE LEVEL 23 MEQ/L (21-32); CHLORIDE LEVEL 109 MEQ/L (98-107); CREATININE FOR GFR 0.81 MG/DL (0.55-1.30); GLOMERULAR FILTRATION RATE > 60.0 (>58); GLUCOSE, FASTING 120 MG/DL (70-100); POTASSIUM SERUM 3.9 MEQ/L (3.5-5.1); SODIUM LEVEL 138 MEQ/L (136-145)
[2019-04-01] MEDS: ENOXAPARIN 40 MG/0.4 ML SYRINGE (J1650) SC SCH (10:50)
--- NOTE | 2019-04-01 12:32 | IPNPDOC ---
Subjective Date Seen The patient was seen on 04/01/19. Subjective Chief Complaint/HPI Still complaining of pain on left side of the face General: Denies: ROS Unobtainable, Chills, Night Sweats, Fatigue, Malaise, Normal Appetite, Other Symptoms Constitutional: Denies: Chills, Fever, Malaise, Night Sweats, Weakness, Fatigue, Weight Loss, Lethargy, Other Eyes: Denies: Pain, Vision change, Conjunctivae inflammation, Eyelid inflammation, Redness, Other ENT: Denies: Head Aches, Ear Pain, Dysphagia, Sinus Congestion, Post Nasal Drip, Sore Throat, Epistaxis, Other Symptoms Skin: Reports: Other Pulmonary: Denies: Dyspnea, Cough, Pleuritic Chest Pain, Other Symptoms Cardiovascular: Denies: Chest Pain, Palpitations, Orthopnea, Paroxysmal Noc. Dyspnea, Edema, Lt Headedness, Other Symptoms Gastrointestinal: Denies: Nausea, Vomiting, Abdominal Pain, Diarrhea, Constipation, Melena, Hematochezia, Other Symptoms Genitourinary: Denies: Dysuria, Frequency, Incontinence, Hematuria, Retention, Other Symptoms Objective Physical Examination General Exam: Positive: Alert, Cooperative Eye Exam: Positive: PERRLA, Conjunctiva & lids normal ENT Exam: Positive: Atraumatic, Mucous membr. moist/pink Neck Exam: Positive: Supple Chest Exam: Positive: Clear to auscultation, Normal air movement Heart Exam: Positive: Rate Normal, Normal S1, Normal S2 Abdomen Exam: Positive: Normal bowel sounds, Soft Skin Exam: Positive: Other skin issue (decreased swelling of the left side of face) Assessment /Plan Problems (1) IV drug user Status: Acute (2) Facial cellulitis Status: Acute Plan/VTE VTE Prophylaxis Ordered?: Yes Plan 1. L. facial cellulitis - Likely 2/2 insect bite while sleeping? - Did not improve after clindamycin yesterday in ER. - Given leukocytosis, fevers, and tachycardia. Treat with 30cc/kg IVF bolus. - lactic acid WNL. - c/w Ceftaroline. 2. IVDU, patient used IV drugs yesterday, will also wide all narcotics 3. Hep C - Has not been treated but has outpatient follow up. 4. Fatty liver - Hep C vs. alcohol? - Will place on CIWA for withdrawal precaution. VS, I&O, 24H, Fishbone Vital Signs/I&O Vital Signs Date Time Temp Pulse Resp B/P (MAP) Pulse Ox O2 Delivery O2 Flow Rate FiO2 04/01/19 08:00 100.0 101 16 105/66 (82) 97 03/31/19 21:45 Room Air I&O- Last 24 Hours up to 6 AM 04/01/19 06:00 Intake Total 2090 ml Balance 2090 ml Laboratory Data 24H LABS Laboratory Tests 2 03/31/19 17:04: Immature Granulocyte % (Auto) 0.6, White Blood Count 17.3H, Red Blood Count 4.33, Hemoglobin 13.2, Hematocrit 39.0, Mean Corpuscular Volume 90.1, Mean Corpuscular Hemoglobin 30.5, Mean Corpuscular Hemoglobin Concent 33.8, Red Cell Distribution Width 13.5, Platelet Count 251, Neutrophils (%) (Auto) 80.4H, Lymphocytes (%) (Auto) 11.6L, Monocytes (%) (Auto) 6.9H, Eosinophils (%) (Auto) 0.3, Basophils (%) (Auto) 0.2, Neutrophils # (Auto) 13.9H, Lymphocytes # (Auto) 2.0, Monocytes # (Auto) 1.2H, Eosinophils # (Auto) 0.1, Basophils # (Auto) 0.0, Nucleated Red Blood Cells % (auto) 0.0, Erythrocyte Sedimentation Rate 43H, Anion Gap 8, Glomerular Filtration Rate > 60.0, Calcium Level 9.0, Aspartate Amino Transf (AST/SGOT) 219H, Alanine Aminotransferase (ALT/SGPT) 281H, Alkaline Phosphatase 143H, Total Bilirubin 0.9#, Direct Bilirubin 0.3H, C-Reactive Protein, Quantitative 13.80H, Total Protein 7.3, Albumin 3.6, Albumin/Globulin Ratio 0.97L 03/31/19 18:49: Lactic Acid Level 1.1 04/01/19 06:28: Nucleated Red Blood Cells % (auto) 0.0, Anion Gap 6L, Glomerular Filtration Rate > 60.0, Calcium Level 8.1L, Blood Urea Nitrogen 10, Creatinine 0.81, Sodium Level 138, Potassium Level 3.9, Chloride Level 109H, Carbon Dioxide Level 23 CBC/BMP Laboratory Tests 03/31/19 17:04 Red Blood Count 4.33, Mean Corpuscular Volume 90.1, Mean Corpuscular Hemoglobin 30.5, Mean Corpuscular Hemoglobin Concent 33.8, Red Cell Distribution Width 13.5, Neutrophils (%) (Auto) 80.4 H, Lymphocytes (%) (Auto) 11.6 L, Monocytes (%) (Auto) 6.9 H, Eosinophils (%) (Auto) 0.3, Basophils (%) (Auto) 0.2, Neutrophils # (Auto) 13.9 H, Lymphocytes # (Auto) 2.0, Monocytes # (Auto) 1.2 H, Eosinophils # (Auto) 0.1, Basophils # (Auto) 0.0 04/01/19 06:28 Red Blood Count 3.87 L, Mean Corpuscular Volume 88.4, Mean Corpuscular Hemoglobin 29.5, Mean Corpuscular Hemoglobin Concent 33.3, Red Cell Distribution Width 13.5, Calcium Level 8.1 L Microbiology Microbiology 03/31/19 Blood Culture, Received Pending 03/31/19 Blood Culture, Received Pending 03/31/19 Gram Stain - Final, Resulted 03/31/19 Wound Culture, Resulted Pending KRISTYN DAWN MD Apr 01, 2019 12:32
[2019-04-01] MEDS: traMADol 50 MG TAB PO PRN ×2 (13:18→23:13)
[2019-04-01] MEDS: KETOROLAC 30 MG/ML VIAL (J1885) IV PRN (18:16)
[2019-04-02] MEDS: KETOROLAC 30 MG/ML VIAL (J1885) IV PRN ×2 (00:45→14:08)
[2019-04-02 00:49] VITALS: BP 113/76
[2019-04-02 04:00] VITALS: BP 110/62
[2019-04-02] MEDS: CEFTAROLINE FOSAMIL 600 MG in D5W MINI-BAG PLUS 50 ML IV SCH (06:19)
[2019-04-02 08:13] LABS: HEMATOCRIT 35.8 % (36.0-47.0); MEAN CORPUSCULAR HEMOGLOBIN 30.5 pg (27.0-33.0); MEAN CORPUSCULAR HGB CONC 33.5 g/dl (32.0-36.5); MEAN CORPUSCULAR VOLUME 91.1 fl (80.0-96.0); PLATELET COUNT, AUTOMATED 228 10^3/uL (150-450); RED BLOOD COUNT 3.93 10^6/uL (4.00-5.40); WHITE BLOOD COUNT 6.5 10^3/uL (4.0-10.0)
[2019-04-02 08:21] VITALS: BP 104/60
[2019-04-02 09:01] LABS: ALBUMIN 2.6 GM/DL (3.2-5.2); ALT/SGPT 172 U/L (12-78); BILIRUBIN,TOTAL 0.2 MG/DL (0.2-1.0); BLOOD UREA NITROGEN 15 MG/DL (7-18); CALCIUM LEVEL 8.2 MG/DL (8.5-10.1); CARBON DIOXIDE LEVEL 26 MEQ/L (21-32); CHLORIDE LEVEL 110 MEQ/L (98-107); CREATININE FOR GFR 0.75 MG/DL (0.55-1.30); GLOMERULAR FILTRATION RATE > 60.0 (>58); GLUCOSE, FASTING 95 MG/DL (70-100); POTASSIUM SERUM 4.1 MEQ/L (3.5-5.1); SODIUM LEVEL 141 MEQ/L (136-145); TOTAL PROTEIN 6.2 GM/DL (6.4-8.2)
[2019-04-02] MEDS: ENOXAPARIN 40 MG/0.4 ML SYRINGE (J1650) SC SCH (09:25)
[2019-04-02] MEDS ORDERED: VANCOMYCIN HCL 750 MG, VIAL MATE ADAPTER 1 EACH in D5W 250 ML IV ONE (11:00)
--- NOTE | 2019-04-02 11:11 | PHACANCOPD ---
PHARMACY VANCOMYCIN DOSING Pt Demographics Demographics Patient Age:38 , Weight:59.090 , Gender: female Adjusted Body Weight Date: 04/02/19, Adjusted Body Weight: Kg Events Past 24 Hours Events Past 24 Hours: NO: Dialysis, Diuretic Therapy, Change in CrCl, Fever, Elevation in WBC, Pending Diagnostics, Pending Procedures, Other Vancomycin Vancomycin indication: FACILA CELLULITIS Vancomycin Target Ranges: 10-20 mcg/ml Vancomycin Load Y/N: Yes Load Dose Date Time Vancomycin Load Dose: 1.25 GRAMS Date: 04/02/19 Time: 1100 Vancomycin Dose Date: 04/02/19. Current Vancomycin Dose: [1 GRAM Q8H] Intermittent Dosing?: No Labs Labs Item Value Date Time White Blood Count 6.5 10^3/uL 04/02/19 0801 White Blood Count 12.2 10^3/uL H 04/01/19 0628 White Blood Count 17.3 10^3/uL H 03/31/19 1704 Creatinine 0.75 MG/DL 04/02/19 0801 Creatinine 0.81 MG/DL 04/01/19 0628 Creatinine 0.80 MG/DL 03/31/19 1704 C-Reactive Protein, Quantitative 13.80 MG/DL H 03/31/19 1704 Micro Microbiology 03/31/19 Blood Culture - Preliminary, Resulted No growth after 24 hours . All specim... 03/31/19 Blood Culture - Preliminary, Resulted No growth after 24 hours . All specim... 03/31/19 Gram Stain - Final, Complete 03/31/19 Wound Culture - Final, Complete Staph.aureus Methicillin Resis Creatinine Clearance Date:04/02/19. Creatinine Clearance: [85 ML/MIN]. Pending Labs TROUGH @ 1100 Assessment and Plan Maintaining Current Dose?: Yes Reason for dose change: No Dose Change Pharmacist Note Pharmacist Note Date: 04/02/19. Pharmacist note:PT is a 38 year old female being treated for Facila cellulitis goal trough 10-20mcg/ml. The patient was last treated here at [facility] in March 2018 previous dosing will guide current dosing. To achieve goal a 1.25g loading dose was started 04/02/19 @ 11:00. Maintenance therapy will consist of 1g IV every 8 hours starting 04/02/19 @20:00. A trough is scheduled for 04/03/19 @ 11:00. We will continue to monitor and adjust the dose as needed. CÉSAR ADRIAN [facility] Apr 02, 2019 11:11
[2019-04-02] MEDS: traMADol 50 MG TAB PO PRN (11:30)
[2019-04-02] MEDS ORDERED: VANCOMYCIN HCL 500 MG in D5W MINI-BAG PLUS 100 ML IV ONE (12:00)
--- NOTE | 2019-04-02 12:14 | IPNPDOC ---
Subjective Date Seen The patient was seen on 04/02/19. Subjective Chief Complaint/HPI Patient's swelling is slightly down but still complains of pain at the site General: Denies: ROS Unobtainable, Chills, Night Sweats, Fatigue, Malaise, Normal Appetite, Other Symptoms Constitutional: Denies: Chills, Fever, Malaise, Night Sweats, Weakness, Fatigue, Weight Loss, Lethargy, Other Eyes: Denies: Pain, Vision change, Conjunctivae inflammation, Eyelid inflammation, Redness, Other ENT: Denies: Head Aches, Ear Pain, Dysphagia, Sinus Congestion, Post Nasal Drip, Sore Throat, Epistaxis, Other Symptoms Skin: Denies: Rash, Lesions, Jaundice, Bruising, Itching, Dry, Breakdown, Nail Changes, Other Pulmonary: Denies: Dyspnea, Cough, Pleuritic Chest Pain, Other Symptoms Cardiovascular: Denies: Chest Pain, Palpitations, Orthopnea, Paroxysmal Noc. Dyspnea, Edema, Lt Headedness, Other Symptoms Gastrointestinal: Denies: Nausea, Vomiting, Abdominal Pain, Diarrhea, Constipation, Melena, Hematochezia, Other Symptoms Psych: Denies: Mood Normal, Anxiety, Depression, Memory Issues, Thoughts of Self Harm, Anger, Thoughts of Harming Other, Other Psych Objective Physical Examination General Exam: Positive: Alert, Cooperative Eye Exam: Positive: PERRLA, Conjunctiva & lids normal Neck Exam: Positive: Supple Chest Exam: Positive: Clear to auscultation, Normal air movement Heart Exam: Positive: Rate Normal, Normal S1, Normal S2 Abdomen Exam: Positive: Normal bowel sounds, Soft Skin Exam: Positive: Other skin issue (decreased swelling of the left side of face) Assessment /Plan Problems (1) Facial cellulitis Status: Acute Problem Text: Wound culture is positive for MRSA Blood cultures are negative so far Will change antibiotics to vancomycin 1 g every 12 hours We'll also request ID consult if needed Will await the blood cultures. Results Continue present care And transferred to medical floor (2) IV drug user Status: Acute Plan/VTE VTE Prophylaxis Ordered?: Yes VS, I&O, 24H, Fishbone Vital Signs/I&O Vital Signs Date Time Temp Pulse Resp B/P (MAP) Pulse Ox O2 Delivery O2 Flow Rate FiO2 04/02/19 11:30 17 04/02/19 08:21 97.9 79 104/60 (74) 99 03/31/19 21:45 Room Air I&O- Last 24 Hours up to 6 AM 04/02/19 06:00 Intake Total 1820 ml Output Total 300 ml Balance 1520 ml Laboratory Data 24H LABS Laboratory Tests 2 04/02/19 08:01: Nucleated Red Blood Cells % (auto) 0.0, Anion Gap 5L, Glomerular Filtration Rate > 60.0, Blood Urea Nitrogen 15, Creatinine 0.75, Sodium Level 141, Potassium Level 4.1, Chloride Level 110H, Carbon Dioxide Level 26, Calcium Level 8.2L, Aspartate Amino Transf (AST/SGOT) 134H, Alanine Aminotransferase (ALT/SGPT) 172H, Alkaline Phosphatase 94, Total Bilirubin 0.2#, Total Protein 6.2L, Albumin 2.6#L, Albumin/Globulin Ratio 0.72L CBC/BMP Laboratory Tests 04/02/19 08:01 Red Blood Count 3.93 L, Mean Corpuscular Volume 91.1, Mean Corpuscular Hemoglobin 30.5, Mean Corpuscular Hemoglobin Concent 33.5, Red Cell Distribution Width 13.3, Calcium Level 8.2 L, Aspartate Amino Transf (AST/SGOT) 134 H, Alanine Aminotransferase (ALT/SGPT) 172 H, Alkaline Phosphatase 94, Total Bilirubin 0.2 #, Total Protein 6.2 L, Albumin 2.6 #L Microbiology Microbiology 03/31/19 Blood Culture - Preliminary, Resulted No growth after 24 hours . All specim... 03/31/19 Blood Culture - Preliminary, Resulted No growth after 24 hours . All specim... 03/31/19 Gram Stain - Final, Complete 03/31/19 Wound Culture - Final, Complete Staph.aureus Methicillin Resis KRISTYN DAWN MD Apr 02, 2019 12:14
[2019-04-02 13:45] VITALS: BP 97/64
[2019-04-02 18:00] VITALS: BP 91/52
[2019-04-02] MEDS: VANCOMYCIN HCL 1,000 MG, VIAL MATE ADAPTER 1 EACH in D5W 250 ML IV SCH (20:06)
[2019-04-02 22:00] VITALS: BP 99/55
[2019-04-03 02:00] VITALS: BP 98/57
[2019-04-03] MEDS: VANCOMYCIN HCL 1,000 MG, VIAL MATE ADAPTER 1 EACH in D5W 250 ML IV SCH ×3 (04:45→20:30)
[2019-04-03 06:00] VITALS: BP 95/55
[2019-04-03] MEDS: ENOXAPARIN 40 MG/0.4 ML SYRINGE (J1650) SC SCH (08:43)
[2019-04-03 10:00] VITALS: BP 109/67
--- NOTE | 2019-04-03 10:27 | IPNPDOC ---
Subjective Date Seen The patient was seen on 04/03/19. Subjective Chief Complaint/HPI Patient complaining of pain at the left side of face, but is improving. Swelling has decreased General: Denies: ROS Unobtainable, Chills, Night Sweats, Fatigue, Malaise, Normal Appetite, Other Symptoms Constitutional: Denies: Chills, Fever, Malaise, Night Sweats, Weakness, Fatigue, Weight Loss, Lethargy, Other Eyes: Denies: Pain, Vision change, Conjunctivae inflammation, Eyelid inflammation, Redness, Other Skin: Reports: Other (. Swelling of face) Pulmonary: Denies: Dyspnea, Cough, Pleuritic Chest Pain, Other Symptoms Cardiovascular: Denies: Chest Pain, Palpitations, Orthopnea, Paroxysmal Noc. Dyspnea, Edema, Lt Headedness, Other Symptoms Musculoskeletal: Denies: Neck Pain, Back Pain, Shoulder Pain, Arm Pain, Hand Pain, Leg Pain, Foot Pain, Joint Pain, Muscle Pain, Spasms, Other Symptoms Neurological: Denies: Weakness, Numbness, Incoordination, Change in speech, Confusion, Seizures, Other Symptoms Objective Physical Examination General Exam: Positive: Alert, Cooperative Eye Exam: Positive: PERRLA, Conjunctiva & lids normal Neck Exam: Positive: Supple Chest Exam: Positive: Clear to auscultation, Normal air movement Heart Exam: Positive: Rate Normal, Normal S1, Normal S2 Abdomen Exam: Positive: Normal bowel sounds, Soft Skin Exam: Positive: Other skin issue (decreased swelling of the left side of face) Assessment /Plan Problems (1) Facial cellulitis Status: Acute Problem Text: Wound culture is positive for MRSA Blood cultures are negative so far Continue vancomycin 1 g every 12 hours dose adjusted as per pharmacy We'll also request ID consult if needed Will await the blood cultures. Results Continue present care And transferred to medical floor A.m. level work has been ordered (2) IV drug user Status: Acute Plan/VTE VTE Prophylaxis Ordered?: Yes VS, I&O, 24H, Fishbone Vital Signs/I&O Vital Signs Date Time Temp Pulse Resp B/P (MAP) Pulse Ox O2 Delivery O2 Flow Rate FiO2 04/03/19 10:00 98.4 84 18 109/67 (81) 100 03/31/19 21:45 Room Air I&O- Last 24 Hours up to 6 AM 04/03/19 06:00 Intake Total 1345 ml Output Total 1200 ml Balance 145 ml Laboratory Data Microbiology Microbiology 03/31/19 Blood Culture - Preliminary, Resulted No Growth after 48 hours. All Specime... 03/31/19 Blood Culture - Preliminary, Resulted No Growth after 48 hours. All Specime... 03/31/19 Gram Stain - Final, Complete 03/31/19 Wound Culture - Final, Complete Staph.aureus Methicillin Resis KRISTYN DAWN MD Apr 03, 2019 10:27
[2019-04-03 14:00] VITALS: BP 111/66
--- NOTE | 2019-04-03 15:06 | PHACANCOPD ---
PHARMACY VANCOMYCIN DOSING Pt Demographics Demographics Patient Age:38 , Weight:62.800 , Gender: female Adjusted Body Weight Date: 04/02/19, Adjusted Body Weight: Kg Vancomycin Vancomycin indication: FACIAL CELLULITIS Vancomycin Target Ranges: 10-20 mcg/ml Vancomycin Load Y/N: Yes Load Dose Date Time Vancomycin Load Dose: 1.25 GRAMS Date: 04/02/19 Time: 1100 Vancomycin Dose Date: 04/02/19. Current Vancomycin Dose: [1 GRAM Q8H] Intermittent Dosing?: No Labs Micro Microbiology 03/31/19 Blood Culture - Preliminary, Resulted No Growth after 48 hours. All Specime... 03/31/19 Blood Culture - Preliminary, Resulted No Growth after 48 hours. All Specime... 03/31/19 Gram Stain - Final, Complete 03/31/19 Wound Culture - Final, Complete Staph.aureus Methicillin Resis Creatinine Clearance Date:04/02/19. Creatinine Clearance: [85 ML/MIN]. Pending Labs TROUGH @ 1100 Assessment and Plan Maintaining Current Dose?: Yes Reason for dose change: No Dose Change Pharmacist Note Pharmacist Note 04/03/19: Day #2 empiric vancomycin therapy for the treatment of facial cellulitis. Vancomycin trough today resulted therapeutic at 15.7mcg/ml. Wound culture grew MRSA (vanco ASHLYN=1). We will continue the patient on her current r egimen of 1g IV Q8H, and draw a follow-up trough level when appropriate. Date: 04/02/19. Pharmacist note:PT is a 38 year old female being treated for Facila cellulitis goal trough 10-20mcg/ml. The patient was last treated here at [facility] in March 2018 previous dosing will guide current dosing. To achieve goal a 1.25g loading dose was started 04/02/19 @ 11:00. Maintenance therapy will consist of 1g IV every 8 hours starting 04/02/19 @20:00. A trough is scheduled for 04/03/19 @ 11:00. We will continue to monitor and adjust the dose as needed. [facility] Apr 03, 2019 15:06
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
[2019-04-03 18:02] VITALS: BP 98/59
[2019-04-03 22:00] VITALS: BP 114/73
[2019-04-04 02:00] VITALS: BP 111/69
[2019-04-04] MEDS: VANCOMYCIN HCL 1,000 MG, VIAL MATE ADAPTER 1 EACH in D5W 250 ML IV SCH ×2 (04:34→12:06)
[2019-04-04 06:00] VITALS: BP 109/68
[2019-04-04 07:46] LABS: ALBUMIN 2.8 GM/DL (3.2-5.2); ALT/SGPT 313 U/L (12-78); BILIRUBIN,TOTAL 0.1 MG/DL (0.2-1.0); BLOOD UREA NITROGEN 14 MG/DL (7-18); C REACTIVE PROTEIN QUANTITATIV 2.19 MG/DL (0.00-0.30); CALCIUM LEVEL 8.5 MG/DL (8.5-10.1); CARBON DIOXIDE LEVEL 29 MEQ/L (21-32); CHLORIDE LEVEL 107 MEQ/L (98-107); GLOMERULAR FILTRATION RATE > 60.0 (>58); GLUCOSE, FASTING 95 MG/DL (70-100); POTASSIUM SERUM 4.1 MEQ/L (3.5-5.1); SODIUM LEVEL 140 MEQ/L (136-145); TOTAL PROTEIN 6.8 GM/DL (6.4-8.2)
[2019-04-04] MEDS: ENOXAPARIN 40 MG/0.4 ML SYRINGE (J1650) SC SCH (08:43)
[2019-04-04] MEDS ORDERED: DOXY-350 PO (10:30)
[2019-04-04 10:54] LABS: HEPATITIS B SURFACE ANTIBODY POSITIVE (POSITIVE)
[2019-04-04 11:03] LABS: HEPATITIS B SURFACE ANTIGEN NEGATIVE (NEGATIVE)
[2019-04-04 12:29] LABS: HIV 1&2 SCREEN CENTAUR NEGATIVE (NEGATIVE)
--- NOTE | 2019-04-04 12:34 | DS.PDOC ---
Discharge Summary General Date of Admission Mar 31, 2019 at 20:55 Date of Discharge 04/04/2019 Attending Physician: KRISTYN DAWN MD Discharge Summary PROCEDURES PERFORMED DURING STAY: None. ADMITTING DIAGNOSES: 1. Facial cellulitis. DISCHARGE DIAGNOSES: 1. Facial cellulitis secondary to MRSA. COMPLICATIONS/CHIEF COMPLAINT: Facial Cellulitis, Sepsis. HISTORY OF PRESENT ILLNESS: . HOSPITAL COURSE: Wound culture is positive for MRSA Blood cultures are negative so far Jeison received vancomycin 1 g every 12 hours dose adjusted as per pharmacy ID consult will appreciated. Patient can be discharged home on doxycycline 100 mg by mouth twice a day for 10 days Extensive counseling regarding abstinence from IVDA and done and all the risks were explained Patient is clinically stable and will be discharged home today and follow up with ID in 1-2 weeks. DISCHARGE MEDICATIONS: Please see below. ALLERGIES: Please see below. PHYSICAL EXAMINATION ON DISCHARGE: VITAL SIGNS: Please see below. GENERAL: NL HEENT: Normal NECK: Supple CARDIOVASCULAR EXAMINATION: S1 S2 regular RESPIRATORY EXAMINATION: clear to A&P ABDOMINAL EXAMINATION: benign EXTREMITIES: no clubbing, cyanosis or edema SKIN: Improved redness and swelling of left side of face] NEUROLOGICAL EXAMINATION: Normal PSYCHIATRIC EXAMINATION: Normal LABORATORY DATA: Please see below. IMAGING: As per EMR PROGNOSIS: Good ACTIVITY: As tolerated. DIET: , Regular DISCHARGE PLAN: Discharge home DISPOSITION: . Home DISCHARGE INSTRUCTIONS: 1. As above. ITEMS TO FOLLOWUP ON ON OUTPATIENT: 1. As above. DISCHARGE CONDITION: Stable. TIME SPENT ON DISCHARGE: 38 minutes. Vital Signs/I&Os Vital Signs Date Time Temp Pulse Resp B/P (MAP) Pulse Ox O2 Delivery O2 Flow Rate FiO2 04/04/19 06:00 98.5 80 18 109/68 (82) 97 03/31/19 21:45 Room Air I&O- Last 24 Hours up to 6 AM 04/04/19 05:59 Intake Total 1590 ml Output Total 750 ml Balance 840 ml Laboratory Data Labs 24H Laboratory Tests 2 04/04/19 06:15: Anion Gap 4L, Glomerular Filtration Rate > 60.0, Blood Urea Nitrogen 14, Creatinine 0.80, Sodium Level 140, Potassium Level 4.1, Chloride Level 107, Carbon Dioxide Level 29, Calcium Level 8.5, Aspartate Amino Transf (AST/SGOT) 2 59H, Alanine Aminotransferase (ALT/SGPT) 313H, Alkaline Phosphatase 123H, Total Bilirubin 0.1L, Total Protein 6.8, Albumin 2.8L, C-Reactive Protein, Quantitative 2.19H, Albumin/Globulin Ratio 0.70L, Hepatitis B Surface Antigen NEGATIVE, Hepatitis B Surface Antibody POSITIVE CBC/BMP Laboratory Tests 04/04/19 06:15 Calcium Level 8.5, Aspartate Amino Transf (AST/SGOT) 259 H, Alanine Aminotransferase (ALT/SGPT) 313 H, Alkaline Phosphatase 123 H, Total Bilirubin 0.1 L, Total Protein 6.8, Albumin 2.8 L Microbiology Microbiology 03/31/19 Blood Culture - Preliminary, Resulted No Growth after 72 hours. All specime... 03/31/19 Blood Culture - Preliminary, Resulted No Growth after 72 hours. All specime... 03/31/19 Gram Stain - Final, Complete 03/31/19 Wound Culture - Final, Complete Staph.aureus Methicillin Resis Discharge Medications Scheduled Doxycycline Monohydrate (Doxycycline) 100 Mg Capsule, 100 MG PO BID Scheduled PRN Aspirin (Aspirin) 325 Mg Tablet, 650 MG PO Q4-6H PRN for PAIN, (Reported) Allergies Coded Allergies: No Known Allergies (Unverified , 07/27/17) KRISTYN DAWN MD Apr 04, 2019 12:34
[2019-04-04 12:53] LABS: HEPATITIS C VIRUS ABY INDEX > 11.0 INDEX (<0.8)
--- NOTE | 2019-04-04 15:20 | IPN ---
DATE OF SERVICE: 04/04/2019 INFECTIOUS DISEASE PROGRESS NOTE SUBJECTIVE: Patient examined at bedside and states she feels much better. Denies any nausea, vomiting, fevers, chills. Describes her lesion as improving in size compared to admission. Continues to drain serosanguineous fluid. Is tolerating antibiotics well. She continues on intravenous (IV) vancomycin today, currently on day 3. White count normalized, and C-reactive protein (CRP) trending down. PHYSICAL EXAM: VITAL SIGNS: Temperature 98.5, pulse 80, respirations 18, blood pressure 109/68, mean arterial pressure (MAP) of 82, pulse oximetry 97% on room air. GENERAL: Resting comfortably in bed, in no acute distress. Alert and oriented (A and O) times three, fully conversant. HEENT: Normocephalic, atraumatic. Extraocular muscles intact. Pupils equal, round, and reactive to light. 2 cm lesion on the left cheek, crusted in the morning with serosanguineous drainage. When reassessed later in the afternoon, the crusting has resolved and the skin is almost back to her baseline, but continues to drain clear fluid. CARDIAC: Regular rate and rhythm. No appreciable murmurs, clicks, or gallops. LUNGS: Clear to auscultation bilaterally. No wheezing, rhonchi, rales. ABDOMEN: Soft, nontender, nondistended. Positive bowel sounds. EXTREMITIES: No clubbing, cyanosis, or edema. MUSCULOSKELETAL: Strength intact in all extremities. SKIN: No visible new rashes or lesions besides the aforementioned left cheek lesion. She has a skin graft taken from her left lower leg up to her left hip and buttock. LABS: WBC 6.5, hemoglobin and hematocrit 12 and 35.8, platelets 228. Sodium and potassium 140 and 4.1. BUN/creatinine 14 and 0.8. AST and ALT 249 and 313. Alkaline phosphatase 123. CRP 2.19. Albumin 2.8. Hepatitis C antibody index is positive; however, the RNA is currently pending. Hepatitis A antibody is pending, as well as hepatitis B core IgG antibody. Blood cultures negative at 72 hours. Left cheek wound culture grew methicillin-resistant Staphylococcus aureus (MRSA). IMPRESSION AND PLAN: 38-year-old female with a history of newly diagnosed hepatitis C as well as IV drug usage with meth and Aracely daily as well as remote history of IV heroin use from age 5-12 with left cheek methicillin-resistant Staphylococcus aureus (MRSA) abscess. She is clinically improving. Wound appears to be decreasing in size and is draining serosanguineous fluid. No fevers, chills. White count normalized. C-reactive protein (CRP) trending down. Transitioned from IV vancomycin to by mouth doxycycline. Regarding her hepatitis C, patient was updated regarding her labs and diagnosis. She is agreeable to followup in outpatient setting closely with primary care provider (PCP) and to get treated. She has been strongly advised to abstain from all drugs, which she is agreeable to. She does have a social living situation, currently not on good terms with her , who she is in the process of . She, initially, had expressed desire to seek inpatient rehabilitation treatment at [facility] for drug rehabilitation; however, today, it was reported that her friend had reached out to Ms. Macario's children, with whom she was estranged previously. They are currently on their way to pick her up from the hospital and take her back with them to [place]. She states she has good support system and will obtain outpatient rehabilitation there. From infectious disease standpoint, she is safe for discharge. Continue on by mouth doxycycline 100 mg by mouth twice a day for a total of 7 days. Patient should followup in the outpatient clinic with Dr. Johnson if she remains in the area; however, currently, she states her plans are to move away back to [place]. MONTY
[2019-04-07 09:12] LABS: HEPATITIS A IgG TOTAL Negative (Negative); HEPATITIS B CORE ANTIBODY IGG Negative (Negative)
== END 2019-04-04 16:45 | disposition home or self-care (01) | DRG 383 ==
LOC: M ED 16:05 → EEVIPCON 20:55 → M ED INP 20:55 → M ICU 21:53 → M MS5PR 04-02 13:35
PROVIDERS: ADMIT Student in an Organized Health Care Education/Training Program; ATTEND Internal Medicine
DX: L03.211 Cellulitis of face (principal); K76.0 Fatty (change of) liver, not elsewhere classified; B18.2 Chronic viral hepatitis C; F17.200 Nicotine dependence, unspecified, uncomplicated; S00.86XA Insect bite (nonvenomous) of other part of head, initial encounter; W57.XXXA Bitten or stung by nonvenomous insect and other nonvenomous arthropods, initial encounter; Y92.009 Unspecified place in unspecified non-institutional (private) residence as the place of occurrence of the external cause; B95.62 Methicillin resistant Staphylococcus aureus infection as the cause of diseases classified elsewhere; F16.90 Hallucinogen use, unspecified, uncomplicated; F11.90 Opioid use, unspecified, uncomplicated

== ENCOUNTER 2019-06-06 07:05 | Inpatient (IN) | payer OTHER, SELFPAY ==
[~2019-06-06] VITALS: Ht 157.5 cm; Wt 59.1 kg
[~2019-06-06 07:05] MED LIST changes: +BAYE325T16 PO; +DOXY-350 PO
[2019-06-06] MEDS ORDERED: NAPR220C14 PO (07:13)
[2019-06-06] MEDS ORDERED: ONDANSETRON 4MG/2ML VIAL (J2405) IV ONE (07:45)
[2019-06-06] MEDS ORDERED: NS 500 ML IV ONE (07:45)
[2019-06-06 08:01] LABS: APPEARANCE, URINE MANUAL CLOUDY (CLEAR); COLOR, URINE MANUAL ORANGE (YELLOW); GLUCOSE, URINE (UA) MANUAL NEGATIVE (NEGATIVE); KETONE, URINE MANUAL NEGATIVE (NEGATIVE); PH,URINE MAN 5.5 UNITS (5.0 - 7.0); PROTEIN, URINE MANUAL OBSCURED mg/dL (NEGATIVE); SPECIFIC GRAVITY,URINE MANUAL 1.023 (1.002-1.035)
[2019-06-06 08:02] LABS: BILIRUBIN, URINE MANUAL 3+ (NEGATIVE); BLOOD URINE MANUAL POSITIVE (NEGATIVE); LEUKOCYTE ESTERASE, URINE MAN POSITIVE (NEGATIVE); NITRITE, URINE MANUAL POSITIVE (NEGATIVE); UROBILINOGEN, URINE MANUAL 12 MG mg/dl (NORMAL)
[2019-06-06 08:07] LABS: HEMATOCRIT 43.2 % (36.0-47.0); HEMOGLOBIN 14.6 g/dl (12.0-15.5); MEAN CORPUSCULAR HEMOGLOBIN 30.9 pg (27.0-33.0); MEAN CORPUSCULAR HGB CONC 33.8 g/dl (32.0-36.5); MEAN CORPUSCULAR VOLUME 91.5 fl (80.0-96.0); PLATELET COUNT, AUTOMATED 174 10^3/uL (150-450); RED BLOOD COUNT 4.72 10^6/uL (4.00-5.40); WHITE BLOOD COUNT 4.1 10^3/uL (4.0-10.0)
[2019-06-06 08:08] LABS: WBC, URINE TNTC /hpf (0-3)
[2019-06-06 08:09] LABS: BACTERIA, URINE LARGE AMOUNT; RENAL EPITHELIAL CELLS, URINE SMALL AMOUNT /hpf; SQUAMOUS EPITHELIAL CELL URINE SMALL AMOUNT /hpf (SMALL AMT)
[2019-06-06 08:17] LABS: INR 1.19; PROTHROMBIN TIME 14.8 SECONDS (11.8-14.0)
[2019-06-06 08:36] LABS: ATYPICAL LYMPH 2 % (0-5); EOSINOPHILS 2 % (0-5); LYMPHOCYTES 35 % (16-52); MONOCYTES 2 % (0-8); MYELOCYTES 1 % (0-0); NEUTROPHILS 51 % (35-75)
[2019-06-06 08:37] LABS: PLATELET ESTIMATE NORMAL (NORMAL)
[2019-06-06 08:42] LABS: ALBUMIN 3.3 GM/DL (3.2-5.2); ALT/SGPT 1790 U/L (12-78); AMYLASE 39 U/L (25-115); BILIRUBIN,DIRECT 5.3 MG/DL (0.0-0.2); BILIRUBIN,TOTAL 5.9 MG/DL (0.2-1.0); BLOOD UREA NITROGEN 10 MG/DL (7-18); CALCIUM LEVEL 8.9 MG/DL (8.5-10.1); CARBON DIOXIDE LEVEL 29 MEQ/L (21-32); CHLORIDE LEVEL 102 MEQ/L (98-107); CREATININE FOR GFR 0.88 MG/DL (0.55-1.30); GLOMERULAR FILTRATION RATE > 60.0 (>58); GLUCOSE, FASTING 100 MG/DL (70-100); LIPASE 134 U/L (73-393); POTASSIUM SERUM 4.1 MEQ/L (3.5-5.1); SODIUM LEVEL 136 MEQ/L (136-145); TOTAL PROTEIN 7.6 GM/DL (6.4-8.2)
[2019-06-06] MEDS ORDERED: ISOVUE-370 76% 100ML VIAL (Q9967) As Ordered ONE (09:10)
[2019-06-06] MEDS ORDERED: NS 1,000 ML IV SCH (10:15)
--- NOTE | 2019-06-06 10:15 | REP ---
REASON: Right upper quadrant pain. COMPARISON: 03/22/2018 CONTRAST: 100 mL Isovue 370. The lung bases are clear and unchanged. There is mild intrahepatic ductal dilatation status quo consistent with the patient's post cholecystectomy state. There are enhancing hepatic lesions. The splen, pancreas, adrenal glands, and kidneys are again seen to be within normal limits. The abdominal aorta and para-aortic regions are again seen to be within normal limits. There is no free fluid or free air in the abdomen. The bowel loops are again seen to be within normal limits, although seen in a limited fashion due to the lack of oral bowel preparatory contrast administration. The abdominal aorta and para-aortic regions are again seen to be within normal limits. There is no evidence of an intra-abdominal mass or adenopathy. Small parapancreatic lymph nodes are noted, status quo. CT PELVIS: There is no free pelvic air. There is a small to moderate amount of free pelvic fluid. Limited evaluation of the pelvic bowel loops and their mesenteries show no gross abnormalities. There are bilateral pelvic phleboliths status quo. There is no evidence of a pelvic mass or adenopathy. Bone window technique throughout the exam shows the osseous structures sto be stable and intact. IMPRESSION: There is no evidence of acute intra-abdominal or intrapelvic disease. There is free fluid in the pelvis, which is probably physiologic. There are multiple but not enlarged parapancreatic lymph nodes. Electronically Signed by Delio Stewart DO 06/06/2019 02:11 P
[2019-06-06] MEDS ORDERED: VITMTA PO (10:23)
[2019-06-06 10:34] LABS: HEPATITIS B SURFACE ANTIGEN NEGATIVE (NEGATIVE)
[2019-06-06 11:02] LABS: HEPATITIS B CORE ANTIBODY IGM NEGATIVE (NEGATIVE)
[2019-06-06 11:09] LABS: HEPATITIS A ANTIBODY IGM POSITIVE (NEGATIVE); HEPATITIS C VIRUS ABY INDEX > 11.0 INDEX (<0.8)
[2019-06-06] MEDS: NS 1,000 ML IV SCH ×2 (12:00→17:13)
[2019-06-06] MEDS: ONDANSETRON 4MG/2ML VIAL (J2405) IV PRN (12:12)
[2019-06-06] MEDS: cefTRIAXone SOD 1 GM in D5W MINI-BAG PLUS 50 ML IV SCH (12:12)
--- NOTE | 2019-06-06 12:21 | HPEPDOC ---
General Date of Admission 06/06/19 Date of Service: Jun 06, 2019 Chief Complaint The patient is a 38-year-old female admitted with a reason for visit of Abd Pain, Fever. Source: Patient Exam Limitations: No limitations Timing/Duration: Day(s) (few days) Severity: Moderate Associated Symptoms: Nausea, Vomiting History of Present Illness 38 years old white female who has a past medical history of gallbladder cancer, status post cholecystectomy in 2010 history of alcohol-induced stroke, pancreatitis, hepatitis C, on no medications IVDA last IV drug abuse was yesterday with methamphetamine. Patient came in with chief complaints of nausea, vomiting, generalized tiredness, fatigue, lethargy, dark color urine since last 3 days. Patient also complaining of generalized abdominal pain since last 3 days, not resolved with any medication exacerbated by lying down at the generalized in nature. No fixed area and nonradiating. No chest pain, syncope, etc. 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 Also, active smoker Surgical History Cholecystectomy Family History Significant Family History: No pertinent family hx Social History * Smoker: current smoker, greater than 1 pack/day Alcohol: Denies Drugs: other (meth) A-FIB/CHADSVASC A-FIB History Current/History of A-Fib/PAF?: No Review of Systems Constitutional: Reports: Weakness, Fatigue, Other (, anorexia) Eyes: Denies: Pain, Vision change, Conjunctivae inflammation, Eyelid inflammation, Redness, Other ENT: Denies: Head Aches, Ear Pain, Dysphagia, Sinus Congestion, Post Nasal Drip, Sore Throat, Epistaxis, Other Symptoms Skin: Denies: Rash, Lesions, Jaundice, Bruising, Itching, Dry, Breakdown, Nail Changes, Other Pulmonary: Denies: Dyspnea, Cough, Pleuritic Chest Pain, Other Symptoms Cardiovascular: Denies: Chest Pain, Palpitations, Orthopnea, Paroxysmal Noc. Dyspnea, Edema, Lt Headedness, Other Symptoms Gastrointestinal: Reports: Nausea, Vomiting, Abdominal Pain Genitourinary: Denies: Dysuria, Frequency, Incontinence, Hematuria, Retention, Other Symptoms Hematologic: Denies: Bruising, Bleeding Excessively, Petecchia, Purpura, Enlarged Lymph Nodes, Other Hematologic Endocrine: Denies: Polydipsia, Polyphagia, Polyuria, Heat Intolerance, Cold Intolerance, Other Endocrine Sx Musculoskeletal: Denies: Neck Pain, Back Pain, Shoulder Pain, Arm Pain, Hand P ain, Leg Pain, Foot Pain, Joint Pain, Muscle Pain, Spasms, Other Symptoms Neurological: Denies: Weakness, Numbness, Incoordination, Change in speech, Confusion, Seizures, Other Symptoms Psych: Denies: Mood Normal, Anxiety, Depression, Memory Issues, Thoughts of Self Harm, Anger, Thoughts of Harming Other, Other Psych Physical Examination General Exam: Positive: Cooperative, Mild Distress Eye Exam: Positive: PERRLA, Conjunctiva & lids normal ENT Exam: Positive: Atraumatic Neck Exam: Positive: Supple Chest Exam: Positive: Clear to auscultation, Normal air movement Heart Exam: Positive: Rate Normal, Normal S1, Normal S2 Abdomen Exam: Positive: Normal bowel sounds, Tenderness (. Positive tenderness at right upper quadrant) Extremity Exam: Positive: Normal pulses Skin Exam: Positive: Nl turgor and temperature Neuro Exam: Positive: Strength at 5/5 X4 ext, Sensation Intact Psych Exam: Positive: Mental status NL Vital Signs Vital Signs Date Time Temp Pulse Resp B/P (MAP) Pulse Ox O2 Delivery O2 Flow Rate FiO2 06/06/19 07:16 20 06/06/19 07:06 96.6 98 100 Room Air Laboratory Data Labs 24H Laboratory Tests 2 06/06/19 07:51: Nucleated Red Blood Cells % (auto) 0.0, Neutrophils 51, Band Neutrophils 7, Lymphocytes (Manual) 35, Monocytes (Manual) 2, Eosinophils (Manual) 2, Myeloc ytes 1H, Atypical Lymphocytes 2, Platelet Estimate NORMAL, Prothrombin Time 14.8H, Prothromb Time International Ratio 1.19, Bedside Urine Color (LAB) ORANGEH, Bedside Urine Appearance (LAB) CLOUDYH, Bedside Urine pH (LAB) 5.5, Bedside Urine Specific Volcano (LAB 1.023, Bedside Urine Protein (LAB) OB SCUREDH, Bedside Urine Glucose (UA) NEGATIVE, Bedside Urine Ketones (LAB) NEGATIVE, Bedside Urine Blood POSITIVEH, Bedside Urine Nitrite (LAB) POSITIVEH, Bedside Urine Bilirubin (LAB) 3+H, Bedside Urine Urobilinogen (LAB) 12 [facility], Bedside Urine Leukocyte Esterase (L POSITIVEH, Urine WBC TNTCH, Urine RBC 5-7H, Urine Squamous Epithelial Cells SMALL AMOUNT, Urine Renal Epithelial Cells SMALL AMOUNTH, Urine Bacteria LARGE AMOUNTH, Urine Hyaline Casts , Urine Sediment Examination PERFORMED, Anion Gap 5L, Glomerular Filtration Rate > 60.0, Calcium Level 8.9, Aspartate Amino Transf (AST/SGOT) 2254H, Alanine Aminotransferase (ALT/SGPT) 1790H, Alkaline Phosphatase 226H, Total Bilirubin 5.9H, Direct Bi lirubin 5.3H, Total Protein 7.6, Albumin 3.3, Albumin/Globulin Ratio 0.77L, Amylase Level 39, Lipase 134, Hepatitis A IgM Antibody POSITIVEA, Hepatitis B Surface Antigen NEGATIVE, Hepatitis B Core IgM Antibody NEGATIVE, Hepatitis C Antibody Index > 11.0H CBC/BMP Laboratory Tests 06/06/19 07:51 Red Blood Count 4.72, Mean Corpuscular Volume 91.5, Mean Corpuscular Hemoglobin 30.9, Mean Corpuscular Hemoglobin Concent 33.8, Red Cell Distribution Width 13.8 Problems (1) Acute hepatitis A Status: Acute Problem Text: Admit to MedSurg floor IV fluids normal saline 850 mL per hour Nothing by mouth Repeat labs in a.m. Zofran when necessary for nausea, vomiting Pain management with Toradol if needed A wide hepatotoxic drugs CBC, CMP and PT in a.m. Discussed with Dr. Parnell, will evaluate patient and give us further recommendations (2) UTI (urinary tract infection) Status: Acute Problem Text: IVF normal saline at 50 mL per hour Rocephin 1 g IV piggyback every 24 hours Urine cultures (3) History of hepatitis C virus infection Status: Chronic Problem Text: History of hep C infection secondary to IV drug abuse Further workup can be done as an outpatient once the acute hepatitis A resolved (4) IVDU (intravenous drug user) Status: Chronic Problem Text: History of IVDA, last use was yesterday. All risks were explained to her and she understands very well (5) Smoker Status: Chronic Problem Text: NicoDerm 14 mg patch Smoking cessation counseling done Plan / VTE VTE Prophylaxis Ordered?: Yes KRISTYN DAWN MD Jun 06, 2019 12:21
[2019-06-06] MEDS ORDERED: NICOTINE 14 MG/24 HR TRANSDERMAL TD ONE (12:30)
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
--- NOTE | 2019-06-06 14:54 | REP ---
RIGHT UPPER QUADRANT SONOGRAPHY: HISTORY: Hepatomegaly. Comparison CT study is from this date. FINDINGS: Scanning through the right upper quadrant of the abdomen demonstrates increased echogenicity in the liver suggesting fatty infiltration. No focal liver lesion is seen. Common bile duct is normal measuring 0.4 cm in greatest diameter. The gallbladder is surgically absent. Limited views of the pancreas show no abnormality. There is no evidence of ascites or right renal abnormality. The right kidney measures 10.0 x 4.4 x 3.6 cm. IMPRESSION: Increased hepatic echogenicity question fatty infiltration. Craniocaudal imaging span of the liver on sagittal images is 15.7 cm. This is near the upper range of normal. Otherwise negative. Post cholecystectomy. Electronically Signed by Rick Ricks MD 06/06/2019 03:23 P
[2019-06-06 15:17] VITALS: BP 95/61
[2019-06-06 22:00] VITALS: BP 110/64
[2019-06-07] MEDS: NS 1,000 ML IV SCH ×4 (00:05→18:27)
[2019-06-07] MEDS: ONDANSETRON 4MG/2ML VIAL (J2405) IV PRN ×2 (03:39→10:35)
[2019-06-07 06:00] VITALS: BP 122/73
[2019-06-07 07:15] LABS: HEMATOCRIT 39.5 % (36.0-47.0); HEMOGLOBIN 13.5 g/dl (12.0-15.5); MEAN CORPUSCULAR HEMOGLOBIN 31.2 pg (27.0-33.0); MEAN CORPUSCULAR HGB CONC 34.2 g/dl (32.0-36.5); MEAN CORPUSCULAR VOLUME 91.2 fl (80.0-96.0); PLATELET COUNT, AUTOMATED 144 10^3/uL (150-450); RED BLOOD COUNT 4.33 10^6/uL (4.00-5.40); WHITE BLOOD COUNT 4.4 10^3/uL (4.0-10.0)
[2019-06-07 07:24] LABS: INR 1.25; PROTHROMBIN TIME 15.4 SECONDS (11.8-14.0)
[2019-06-07 08:00] LABS: ALBUMIN 2.6 GM/DL (3.2-5.2); ALT/SGPT 1739 U/L (12-78); BILIRUBIN,DIRECT 4.1 MG/DL (0.0-0.2); BILIRUBIN,TOTAL 4.9 MG/DL (0.2-1.0); BLOOD UREA NITROGEN 6 MG/DL (7-18); CALCIUM LEVEL 7.8 MG/DL (8.5-10.1); CARBON DIOXIDE LEVEL 23 MEQ/L (21-32); CHLORIDE LEVEL 108 MEQ/L (98-107); CREATININE FOR GFR 0.66 MG/DL (0.55-1.30); GLOMERULAR FILTRATION RATE > 60.0 (>58); GLUCOSE, FASTING 88 MG/DL (70-100); MAGNESIUM LEVEL 1.9 MG/DL (1.8-2.4); SODIUM LEVEL 139 MEQ/L (136-145); TOTAL PROTEIN 5.9 GM/DL (6.4-8.2)
--- NOTE | 2019-06-07 11:49 | IPNPDOC ---
Subjective Date Seen The patient was seen on 06/07/19. Subjective Chief Complaint/HPI Patient complaining of abdominal pain but no nausea, vomiting General: Denies: ROS Unobtainable, Chills, Night Sweats, Fatigue, Malaise, Normal Appetite, Other Symptoms Constitutional: Denies: Chills, Fever, Malaise, Night Sweats, Weakness, Fatigue, Weight Loss, Lethargy, Other Eyes: Denies: Pain, Vision change, Conjunctivae inflammation, Eyelid inflammation, Redness, Other ENT: Denies: Head Aches, Ear Pain, Dysphagia, Sinus Congestion, Post Nasal Drip, Sore Throat, Epistaxis, Other Symptoms Skin: Denies: Rash, Lesions, Jaundice, Bruising, Itching, Dry, Breakdown, Nail Changes, Other Pulmonary: Denies: Dyspnea, Cough, Pleuritic Chest Pain, Other Symptoms Cardiovascular: Denies: Chest Pain, Palpitations, Orthopnea, Paroxysmal Noc. Dyspnea, Edema, Lt Headedness, Other Symptoms Gastrointestinal: Reports: Abdominal Pain Musculoskeletal: Denies: Neck Pain, Back Pain, Shoulder Pain, Arm Pain, Hand Pain, Leg Pain, Foot Pain, Joint Pain, Muscle Pain, Spasms, Other Symptoms Objective Physical Examination General Exam: Positive: Cooperative, Mild Distress Eye Exam: Positive: PERRLA, Conjunctiva & lids normal ENT Exam: Positive: Atraumatic Neck Exam: Positive: Supple Chest Exam: Positive: Clear to auscultation, Normal air movement Heart Exam: Positive: Rate Normal, Normal S1, Normal S2 Abdomen Exam: Positive: Normal bowel sounds, Tenderness (. Positive tenderness at right upper quadrant) Extremity Exam: Positive: Normal pulses Skin Exam: Positive: Nl turgor and temperature Neuro Exam: Positive: Strength at 5/5 X4 ext, Sensation Intact Psych Exam: Positive: Mental status NL Assessment /Plan Problems (1) Acute hepatitis A Status: Acute Problem Text: Admit to MedSurg floor IV fluids normal [id number] mL per hour Egler diet Zofran when necessary for nausea, vomiting Pain management with Toradol if needed A wide hepatotoxic drugs CBC, CMP and PT in a.m. GI consult appreciated supportive care only (2) UTI (urinary tract infection) Status: Acute Problem Text: IVF normal saline at 50 mL per hour Rocephin 1 g IV piggyback every 24 hours Urine cultures pending (3) History of hepatitis C virus infection Status: Chronic Problem Text: History of hep C infection secondary to IV drug abuse Further workup can be done as an outpatient once the acute hepatitis A resolved (4) IVDU (intravenous drug user) Status: Chronic Problem Text: History of IVDA, last use was yesterday. All risks were explained to her and she understands very well (5) Smoker Status: Chronic Problem Text: NicoDerm 14 mg patch Smoking cessation counseling done Plan/VTE VTE Prophylaxis Ordered?: Yes VS, I&O, 24H, Fishbone Vital Signs/I&O Vital Signs Date Time Temp Pulse Resp B/P (MAP) Pulse Ox O2 Delivery O2 Flow Rate FiO2 06/07/19 06:00 99.8 97 18 122/73 (89) 98 06/06/19 07:06 Room Air I&O- Last 24 Hours up to 6 AM 06/07/19 06:00 Intake Total 2470 ml Balance 2470 ml Laboratory Data 24H LABS Laboratory Tests 2 06/07/19 05:40: Nucleated Red Blood Cells % (auto) 0.0, Prothrombin Time 15.4H, Prothromb Time International Ratio 1.25, Anion Gap 8, Glomerular Filtration Rate > 60.0, Blood Urea Nitrogen 6L, Creatinine 0.66, Sodium Level 139, Potassium Level 4.0, Chloride Level 108H, Carbon Dioxide Level 23, Calcium Level 7.8L, Aspartate Amino Transf (AST/SGOT) 2137H, Alanine Aminotransferase (ALT/SGPT) 1739H, Alkali ne Phosphatase 185H, Total Bilirubin 4.9H, Direct Bilirubin 4.1H, Total Protein 5.9#L, Albumin 2.6#L, Magnesium Level 1.9, Albumin/Globulin Ratio 0.79L CBC/BMP Laboratory Tests 06/07/19 05:40 Red Blood Count 4.33, Mean Corpuscular Volume 91.2, Mean Corpuscular Hemoglobin 31.2, Mean Corpuscular Hemoglobin Concent 34.2, Red Cell Distribution Width 13.9, Calcium Level 7.8 L, Aspartate Amino Transf (AST/SGOT) 2137 H, Alanine Aminotransferase (ALT/SGPT) 1739 H, Alkaline Phosphatase 185 H, Total Bilirubin 4.9 H, Direct Bilirubin 4.1 H, Total Protein 5.9 #L, Albumin 2.6 #L KRISTYN DAWN MD Jun 07, 2019 11:49
[2019-06-07] MEDS: cefTRIAXone SOD 1 GM in D5W MINI-BAG PLUS 50 ML IV SCH (12:23)
[2019-06-07 14:00] VITALS: BP 110/74
[2019-06-07 22:00] VITALS: BP 95/63
[2019-06-08] MEDS: NS 1,000 ML IV SCH ×5 (01:18→23:52)
[2019-06-08 06:00] VITALS: BP 113/77
[2019-06-08 07:06] LABS: ALBUMIN 2.4 GM/DL (3.2-5.2); ALT/SGPT 1610 U/L (12-78); BILIRUBIN,DIRECT 4.9 MG/DL (0.0-0.2); BILIRUBIN,TOTAL 5.8 MG/DL (0.2-1.0); BLOOD UREA NITROGEN 4 MG/DL (7-18); CALCIUM LEVEL 7.8 MG/DL (8.5-10.1); CARBON DIOXIDE LEVEL 24 MEQ/L (21-32); CHLORIDE LEVEL 106 MEQ/L (98-107); CREATININE FOR GFR 0.63 MG/DL (0.55-1.30); GLOMERULAR FILTRATION RATE > 60.0 (>58); GLUCOSE, FASTING 82 MG/DL (70-100); POTASSIUM SERUM 4.1 MEQ/L (3.5-5.1); SODIUM LEVEL 137 MEQ/L (136-145); TOTAL PROTEIN 5.6 GM/DL (6.4-8.2)
--- NOTE | 2019-06-08 11:00 | IPNPDOC ---
Subjective Date Seen The patient was seen on 06/08/19. Subjective Chief Complaint/HPI Patient is comfortable in no distress. Offers no complaints General: Denies: ROS Unobtainable, Chills, Night Sweats, Fatigue, Malaise, Normal Appetite, Other Symptoms Constitutional: Denies: Chills, Fever, Malaise, Night Sweats, Weakness, Fatigue, Weight Loss, Lethargy, Other Eyes: Denies: Pain, Vision change, Conjunctivae inflammation, Eyelid inflammation, Redness, Other ENT: Denies: Head Aches, Ear Pain, Dysphagia, Sinus Congestion, Post Nasal Drip, Sore Throat, Epistaxis, Other Symptoms Skin: Denies: Rash, Lesions, Jaundice, Bruising, Itching, Dry, Breakdown, Nail Changes, Other Pulmonary: Denies: Dyspnea, Cough, Pleuritic Chest Pain, Other Symptoms Cardiovascular: Denies: Chest Pain, Palpitations, Orthopnea, Paroxysmal Noc. Dyspnea, Edema, Lt Headedness, Other Symptoms Gastrointestinal: Denies: Nausea, Vomiting, Abdominal Pain, Diarrhea, Constipation, Melena, Hematochezia, Other Symptoms Neurological: Denies: Weakness, Numbness, Incoordination, Change in speech, Confusion, Seizures, Other Symptoms Psych: Denies: Mood Normal, Anxiety, Depression, Memory Issues, Thoughts of Self Harm, Anger, Thoughts of Harming Other, Other Psych Objective Physical Examination General Exam: Positive: Cooperative, Mild Distress Eye Exam: Positive: PERRLA, Conjunctiva & lids normal ENT Exam: Positive: Atraumatic Neck Exam: Positive: Supple Chest Exam: Positive: Clear to auscultation, Normal air movement Heart Exam: Positive: Rate Normal, Normal S1, Normal S2 Abdomen Exam: Positive: Normal bowel sounds, Tenderness (. Positive tenderness at right upper quadrant) Extremity Exam: Positive: Normal pulses Skin Exam: Positive: Nl turgor and temperature Neuro Exam: Positive: Strength at 5/5 X4 ext, Sensation Intact Psych Exam: Positive: Mental status NL Assessment /Plan Problems (1) Acute hepatitis A Status: Acute Problem Text: Admit to MedSur floor IV fluids normal [id number] mL per hour Regular diet Zofran when necessary for nausea, vomiting Pain management with Toradol if needed A wide hepatotoxic meds Patient's AST is 1812, and ALT is 1610 today and INR is 1.25 Continue monitoring patient's clinical status with LFTs (2) UTI (urinary tract infection) Status: Acute Problem Text: IVF normal saline at 50 mL per hour Rocephin 1 g IV piggyback every 24 hours And cultures are still pending (3) History of hepatitis C virus infection Status: Chronic Problem Text: History of hep C infection secondary to IV drug abuse Further workup can be done as an outpatient once the acute hepatitis A resolved (4) IVDU (intravenous drug user) Status: Chronic Problem Text: History of IVDA, last use was yesterday. All risks were explained to her and she understands very well (5) Smoker Status: Chronic Problem Text: NicoDerm 14 mg patch Smoking cessation counseling done Plan/VTE VTE Prophylaxis Ordered?: Yes VS, I&O, 24H, Fishbone Vital Signs/I&O Vital Signs Date Time Temp Pulse Resp B/P (MAP) Pulse Ox O2 Delivery O2 Flow Rate FiO2 06/08/19 06:00 98.4 84 18 113/77 (89) 95 06/06/19 07:06 Room Air I&O- Last 24 Hours up to 6 AM 06/08/19 06:00 Intake Total 4690 ml Balance 4690 ml Laboratory Data 24H LABS Laboratory Tests 2 06/08/19 05:45: Anion Gap 7L, Glomerular Filtration Rate > 60.0, Blood Urea Nitrogen 4L, Creatinine 0.63, Sodium Level 137, Potassium Level 4.1, Chloride Level 106, Carbon Dioxide Level 24, Calcium Level 7.8L, Aspartate Amino Transf (AST/SGOT) 1812H, Alanine Aminotransferase (ALT/SGPT) 1610H, Alkaline Phosphatase 174H, Total Bilirubin 5.8H, Direct Bilirubin 4.9H, Total Protein 5.6L, Albumin 2.4L, Albumin/Globulin Ratio 0.75L CBC/BMP Laboratory Tests 06/08/19 05:45 Calcium Level 7.8 L, Aspartate Amino Transf (AST/SGOT) 1812 H, Alanine Aminotransferase (ALT/SGPT) 1610 H, Alkaline Phosphatase 174 H, Total Bilirubin 5.8 H, Direct Bilirubin 4.9 H, Total Protein 5.6 L, Albumin 2.4 L KRISTYN DAWN MD Jun 08, 2019 11:00
[2019-06-08] MEDS: cefTRIAXone SOD 1 GM in D5W MINI-BAG PLUS 50 ML IV SCH (12:06)
[2019-06-08 14:00] VITALS: BP 112/18
[2019-06-08] MEDS: ONDANSETRON 4MG/2ML VIAL (J2405) IV PRN (18:41)
[2019-06-08 22:00] VITALS: BP 92/65
[2019-06-09] MEDS: ONDANSETRON 4MG/2ML VIAL (J2405) IV PRN (00:34)
[2019-06-09 06:00] VITALS: BP 101/62
[2019-06-09 08:42] LABS: ALBUMIN 2.3 GM/DL (3.2-5.2); BILIRUBIN,DIRECT 5.4 MG/DL (0.0-0.2); BILIRUBIN,TOTAL 6.7 MG/DL (0.2-1.0); TOTAL PROTEIN 5.9 GM/DL (6.4-8.2)
[2019-06-09] MEDS: NS 1,000 ML IV SCH (09:35)
--- NOTE | 2019-06-09 11:27 | IPNPDOC ---
Subjective Date Seen The patient was seen on 06/09/19. Subjective Chief Complaint/HPI Patient is doing much better. Offers no new complaint except just tiredness General: Denies: ROS Unobtainable, Chills, Night Sweats, Fatigue, Malaise, Normal Appetite, Other Symptoms Constitutional: Denies: Chills, Fever, Malaise, Night Sweats, Weakness, Fatigue, Weight Loss, Lethargy, Other Eyes: Denies: Pain, Vision change, Conjunctivae inflammation, Eyelid inflammation, Redness, Other ENT: Denies: Head Aches, Ear Pain, Dysphagia, Sinus Congestion, Post Nasal Drip, Sore Throat, Epistaxis, Other Symptoms Skin: Denies: Rash, Lesions, Jaundice, Bruising, Itching, Dry, Breakdown, Nail Changes, Other Pulmonary: Denies: Dyspnea, Cough, Pleuritic Chest Pain, Other Symptoms Cardiovascular: Denies: Chest Pain, Palpitations, Orthopnea, Paroxysmal Noc. Dyspnea, Edema, Lt Headedness, Other Symptoms Gastrointestinal: Denies: Nausea, Vomiting, Abdominal Pain, Diarrhea, Constipation, Melena, Hematochezia, Other Symptoms Neurological: Denies: Weakness, Numbness, Incoordination, Change in speech, Confusion, Seizures, Other Symptoms Objective Physical Examination General Exam: Positive: Cooperative, Mild Distress Eye Exam: Positive: PERRLA, Conjunctiva & lids normal ENT Exam: Positive: Atraumatic Neck Exam: Positive: Supple Chest Exam: Positive: Clear to auscultation, Normal air movement Heart Exam: Positive: Rate Normal, Normal S1, Normal S2 Abdomen Exam: Positive: Normal bowel sounds, Tenderness (. Positive tenderness at right upper quadrant) Extremity Exam: Positive: Normal pulses Skin Exam: Positive: Nl turgor and temperature Neuro Exam: Positive: Strength at 5/5 X4 ext, Sensation Intact Psych Exam: Positive: Mental status NL Assessment /Plan Problems (1) Acute hepatitis A Status: Acute Problem Text: Admit to MedSurg floor IV fluids normal [id number] mL per hour Regular diet Zofran when necessary for nausea, vomiting Pain management with Toradol if needed A wide hepatotoxic meds Patient's AST is 934 and ALT 1255 Continue monitoring patient's clinical status with LFTs (2) UTI (urinary tract infection) Status: Acute Problem Text: IVF normal saline at 50 mL per hour Rocephin 1 g IV piggyback every 24 hours And cultures are still pending (3) History of hepatitis C virus infection Status: Chronic Problem Text: History of hep C infection secondary to IV drug abuse Further workup can be done as an outpatient once the acute hepatitis A resolved (4) IVDU (intravenous drug user) Status: Chronic Problem Text: History of IVDA, last use was yesterday. All risks were explained to her and she understands very well (5) Smoker Status: Chronic Problem Text: NicoDerm 14 mg patch Smoking cessation counseling done Plan/VTE VTE Prophylaxis Ordered?: Yes VS, I&O, 24H, Fishbone Vital Signs/I&O Vital Signs Date Time Temp Pulse Resp B/P (MAP) Pulse Ox O2 Delivery O2 Flow Rate FiO2 06/09/19 06:00 98.1 70 15 101/62 (75) 96 06/06/19 07:06 Room Air I&O- Last 24 Hours up to 6 AM 06/09/19 06:00 Intake Total 5390 ml Output Total 1210 ml Balance 4180 ml Laboratory Data 24H LABS Laboratory Tests 2 06/09/19 07:58: Aspartate Amino Transf (AST/SGOT) 934H, Alanine Aminotransferase (ALT/SGPT) 1255H, Alkaline Phosphatase 199H, Total Bilirubin 6.7H, Direct Bilirubin 5.4H, Total Protein 5.9L, Albumin 2.3L, Albumin/Globulin Ratio 0.64L KRISTYN DAWN MD Jun 09, 2019 11:27
[2019-06-09] MEDS: CEFUROXIME 500 MG TAB PO SCH ×2 (12:19→21:17)
[2019-06-09 14:00] VITALS: BP 100/65
[2019-06-09 22:00] VITALS: BP 96/54
[2019-06-10 06:00] VITALS: BP 92/63
[2019-06-10 07:22] LABS: ALBUMIN 2.5 GM/DL (3.2-5.2); BILIRUBIN,DIRECT 5.9 MG/DL (0.0-0.2); BILIRUBIN,TOTAL 6.9 MG/DL (0.2-1.0); TOTAL PROTEIN 6.5 GM/DL (6.4-8.2)
[2019-06-10] MEDS: CEFUROXIME 500 MG TAB PO SCH (08:53)
--- NOTE | 2019-06-10 11:21 | DS.PDOC ---
Discharge Summary General Date of Admission Jun 06, 2019 at 11:48 Date of Discharge 06/10/19 Discharge Summary PROCEDURES PERFORMED DURING STAY: None. ADMITTING DIAGNOSES: 1. Elevated liver enzymes. DISCHARGE DIAGNOSES: 1. [Hepatitis A history of intravenous drug abuse COMPLICATIONS/CHIEF COMPLAINT: Acute Hepatitis. HISTORY OF PRESENT ILLNESS: 38 years old white female who has a past medical history of gallbladder cancer, status post cholecystectomy in 2010 history of alcohol-induced stroke, pancreatitis, hepatitis C, on no medications IVDA last IV drug abuse was yesterday with methamphetamine. Patient came in with chief complaints of nausea, vomiting, generalized tiredness, fatigue, lethargy, dark color urine since last 3 days. Patient also complaining of generalized abdominal pain since last 3 days, not resolved with any medication exacerbated by lying down at the generalized in nature. No fixed area and nonradiating. No chest pain, syncope, etc.. HOSPITAL COURSE: Patient was admitted with the diagnosis of elevated liver enzymes, possible exacerbation of hep C initially. But patient's hepatitis C IgM came positive. Patient was closely monitored. Initially she was kept nothing by mouth IV fluids were provided and LFTs were monitored which shows progressive decline and now today the ALT is 988 with AST of 210. Patient's PT/INR is also essentially within normal range. Her symptoms have resolved is no more abdominal pain. No more nausea, vomiting. She is tolerating oral feeding very well. Patient will be discharged home and follow with her PCP in one week for repeat liver function test. Again, extensive counseling regarding IV drug abuse and all the risks were explained to her and she understands very well, but she refuses for any outpatient treatment. Our plan at this time.. DISCHARGE MEDICATIONS: Please see below. ALLERGIES: Please see below. PHYSICAL EXAMINATION ON DISCHARGE: VITAL SIGNS: Please see below. GENERAL: Normal HEENT: PERRLA NECK: Supple CARDIOVASCULAR EXAMINATION: S1, S2, regular RESPIRATORY EXAMINATION: Lead to A&P ABDOMINAL EXAMINATION: Benign EXTREMITIES: No clubbing, cyanosis, edema SKIN: Normal NEUROLOGICAL EXAMINATION: Focal motor sensory deficit PSYCHIATRIC EXAMINATION: Normal LABORATORY DATA: Please see below. IMAGING: PROGNOSIS: Good ACTIVITY: As tolerated. DIET: As tolerated DISCHARGE PLAN: Follow-up with PCP in one week DISPOSITION: . Home DISCHARGE INSTRUCTIONS: 1. Per discharge instructions. ITEMS TO FOLLOWUP ON ON OUTPATIENT: 1. , F/U with PCP and in one week. DISCHARGE CONDITION: Stable. TIME SPENT ON DISCHARGE: 36 minutes. Vital Signs/I&Os Vital Signs Date Time Temp Pulse Resp B/P (MAP) Pulse Ox O2 Delivery O2 Flow Rate FiO2 06/10/19 06:00 97.6 79 18 92/63 (73) 98 06/06/19 07:06 Room Air I&O- Last 24 Hours up to 6 AM 06/10/19 06:00 Intake Total 1140 ml Output Total 1600 ml Balance -460 ml Laboratory Data Labs 24H Laboratory Tests 2 06/10/19 06:32: Aspartate Amino Transf (AST/SGOT) 516H, Alanine Aminotransferase (ALT/SGPT) 988H, Alkaline Phosphatase 210H, Total Bilirubin 6.9H, Direct Bilirubin 5.9H, Total Protein 6.5, Albumin 2.5L, Albumin/Globulin Ratio 0.63L Microbiology Microbiology 06/09/19 Urine Culture - Final, Complete Discharge Medications Scheduled Multivitamins (Thera M Plus Tablet) 1 Each Tablet, 1 TAB PO DAILY, (Reported) Scheduled PRN Naproxen Sodium (Aleve) 220 Mg Capsule, 440 MG PO BID PRN for PAIN, (Reported) Allergies Coded Allergies: No Known Allergies (Unverified , 07/27/17) KRISTYN DAWN MD Jun 10, 2019 11:21
== END 2019-06-10 12:50 | disposition home or self-care (01) ==
LOC: M ED 07:05 → M ED INP 11:48 → M MSPAV 15:07
PROVIDERS: ADMIT Internal Medicine; ATTEND Internal Medicine
DX: B17.9 Acute viral hepatitis, unspecified (principal); N39.0 Urinary tract infection, site not specified; Z85.89 Personal history of malignant neoplasm of other organs and systems; Z86.73 Personal history of transient ischemic attack (TIA), and cerebral infarction without residual deficits; F17.200 Nicotine dependence, unspecified, uncomplicated; F15.90 Other stimulant use, unspecified, uncomplicated

== ENCOUNTER 2019-08-25 20:47 | Emergency (ER) | payer OTHER, SELFPAY ==
[~2019-08-25] VITALS: Ht 157.5 cm; Wt 63.6 kg
[~2019-08-25 20:47] MED LIST changes: +NAPR220C14 PO; +VITMTA PO
[2019-08-25 21:31] LABS: BASO % 0.6 % (0.0-1.0); EOS # 0.2 10^3/uL (0.0-0.5); EOS % 2.4 % (0.0-3.0); HEMATOCRIT 39.3 % (36.0-47.0); HEMOGLOBIN 13.2 g/dl (12.0-15.5); LYMPH # 2.3 10^3/uL (1.5-5.0); LYMPH % 35.5 % (24.0-44.0); MEAN CORPUSCULAR HEMOGLOBIN 31.6 pg (27.0-33.0); MEAN CORPUSCULAR HGB CONC 33.6 g/dl (32.0-36.5); MONO # 0.9 10^3/uL (0.0-0.8); MONO % 13.7 % (0.0-5.0); NEUTROPHILS % 47.2 % (36.0-66.0); PLATELET COUNT, AUTOMATED 237 10^3/uL (150-450); RED BLOOD COUNT 4.18 10^6/uL (4.00-5.40); WHITE BLOOD COUNT 6.3 10^3/uL (4.0-10.0)
[2019-08-25 22:03] LABS: ALBUMIN 3.3 GM/DL (3.2-5.2); BILIRUBIN,DIRECT 0.1 MG/DL (0.0-0.2); BILIRUBIN,TOTAL 0.3 MG/DL (0.2-1.0); TOTAL PROTEIN 7.9 GM/DL (6.4-8.2)
[2019-08-25] MEDS ORDERED: DOXY100C37 PO (22:12)
[2019-08-25] MEDS ORDERED: DOXYCYCLINE HYCLATE 100 MG TAB PO ONE (22:15)
[2019-08-25 22:25] VITALS: BP 128/78
== END 2019-08-25 22:37 | disposition home or self-care (01) ==
LOC: M ED 20:47
DX: L03.211 Cellulitis of face (principal); L03.221 Cellulitis of neck; L03.811 Cellulitis of head [any part, except face]; T43.625A Adverse effect of amphetamines, initial encounter; F15.10 Other stimulant abuse, uncomplicated; I21.9 Acute myocardial infarction, unspecified; B15.9 Hepatitis A without hepatic coma; B18.2 Chronic viral hepatitis C; Z86.19 Personal history of other infectious and parasitic diseases; F17.210 Nicotine dependence, cigarettes, uncomplicated

== ENCOUNTER 2019-09-24 16:04 | Emergency (ER) | payer MEDICAID, SELFPAY ==
[~2019-09-24] VITALS: Ht 157.5 cm; Wt 63.6 kg
[~2019-09-24 16:04] MED LIST changes: +DOXY100C37 PO
[2019-09-24 17:49] LABS: BASO % 0.5 % (0.0-1.0); EOS # 0.1 10^3/uL (0.0-0.5); EOS % 1.3 % (0.0-3.0); HEMATOCRIT 42.8 % (36.0-47.0); HEMOGLOBIN 14.4 g/dl (12.0-15.5); LYMPH % 38.5 % (24.0-44.0); MEAN CORPUSCULAR HEMOGLOBIN 30.9 pg (27.0-33.0); MEAN CORPUSCULAR HGB CONC 33.6 g/dl (32.0-36.5); MEAN CORPUSCULAR VOLUME 91.8 fl (80.0-96.0); MONO # 0.7 10^3/uL (0.0-0.8); MONO % 8.7 % (0.0-5.0); NEUTROPHILS % 50.6 % (36.0-66.0); PLATELET COUNT, AUTOMATED 260 10^3/uL (150-450); RED BLOOD COUNT 4.66 10^6/uL (4.00-5.40); WHITE BLOOD COUNT 7.8 10^3/uL (4.0-10.0)
--- NOTE | 2019-09-24 18:33 | REPVR ---
PROCEDURE INFORMATION: Exam: US Duplex Left Lower Extremity Veins, Limited Exam date and time: 09/24/2019 6:08 PM Age: 38 years old Clinical history: Pain; Leg, lower; Left; Additional info: Left leg cramping, electric pain TECHNIQUE: Imaging protocol: Real-time Duplex ultrasound of the Left Lower Extremity with 2-D mejia scale, color Doppler flow and spectral waveform analysis with image documentation. Limited exam focused on the left lower extremity veins. COMPARISON: No relevant prior studies available. FINDINGS: Left deep veins: Unremarkable. The common femoral, femoral, proximal profunda femoral and popliteal veins are patent without thrombus. Normal Doppler waveforms. Normal compressibility and/or augmentation response. Left superficial veins: Unremarkable. Saphenofemoral junction is patent without thrombus. Soft tissues: Left popliteal fossa cyst measuring 2.6 x 0.8 x 1.8 cm. IMPRESSION: No DVT of the left lower extremity. Left popliteal fossa cyst. Electronically signed by: David Juárez On 09/24/2019 18:33:34 PM
[2019-09-24] MEDS ORDERED: BACT800T5 PO (18:39)
[2019-09-24] MEDS ORDERED: BACTRIM 160MG/800MG DS TAB PO ONE (18:45)
[2019-09-24 18:46] VITALS: BP 135/67
== END 2019-09-24 18:50 | disposition home or self-care (01) ==
LOC: M ED 16:04
DX: L02.212 Cutaneous abscess of back [any part, except buttock and flank] (principal); M71.22 Synovial cyst of popliteal space [Baker], left knee; F19.10 Other psychoactive substance abuse, uncomplicated; B19.20 Unspecified viral hepatitis C without hepatic coma; B15.9 Hepatitis A without hepatic coma; Z86.14 Personal history of Methicillin resistant Staphylococcus aureus infection; F17.210 Nicotine dependence, cigarettes, uncomplicated

== ENCOUNTER 2019-10-01 18:24 | Emergency (ER) | payer SELFPAY ==
[~2019-10-01] VITALS: Ht 157.5 cm; Wt 63.2 kg
[2019-10-01] MEDS ORDERED: CLOB0.0526 TOP (20:34)
[2019-10-01] MEDS ORDERED: PRED10PA PO (20:34)
[2019-10-01 20:40] VITALS: BP 123/73
== END 2019-10-01 20:42 | disposition home or self-care (01) ==
LOC: M ED 18:24
DX: L08.9 Local infection of the skin and subcutaneous tissue, unspecified (principal); F15.20 Other stimulant dependence, uncomplicated; I10 Essential (primary) hypertension; J45.909 Unspecified asthma, uncomplicated; I25.2 Old myocardial infarction; F17.210 Nicotine dependence, cigarettes, uncomplicated

== ENCOUNTER 2019-10-24 16:45 | Emergency (ER) | payer SELFPAY ==
[~2019-10-24] VITALS: Ht 157.5 cm; Wt 63.9 kg
[~2019-10-24 16:45] MED LIST changes: +CLOB0.0526 TOP; +PRED10PA PO
[2019-10-24 16:46] VITALS: BP 122/78
== END 2019-10-24 20:10 | disposition left against medical advice (07) ==
LOC: M ED 16:45
DX: Z53.21 Procedure and treatment not carried out due to patient leaving prior to being seen by health care provider (principal)

== ENCOUNTER 2020-01-06 15:15 | Emergency (ER) | payer OTHER, SELFPAY ==
[~2020-01-06] VITALS: Ht 157.5 cm; Wt 62.3 kg
[2020-01-06 15:16] VITALS: BP 117/69
[2020-01-06] MEDS ORDERED: MUPI30CR TOP (16:15)
[2020-01-06] MEDS ORDERED: BACT800T5 PO (16:15)
== END 2020-01-06 16:24 | disposition home or self-care (01) ==
LOC: M ED 15:15
DX: L03.211 Cellulitis of face (principal); F15.20 Other stimulant dependence, uncomplicated; J45.909 Unspecified asthma, uncomplicated; B18.2 Chronic viral hepatitis C; B15.9 Hepatitis A without hepatic coma; K76.0 Fatty (change of) liver, not elsewhere classified; F41.9 Anxiety disorder, unspecified; F33.9 Major depressive disorder, recurrent, unspecified; Z86.73 Personal history of transient ischemic attack (TIA), and cerebral infarction without residual deficits; F17.210 Nicotine dependence, cigarettes, uncomplicated

== ENCOUNTER 2020-01-25 07:30 | Emergency (ER) | payer OTHER, SELFPAY ==
[~2020-01-25] VITALS: Ht 157.5 cm; Wt 58.9 kg
[~2020-01-25 07:30] MED LIST changes: +MUPI30CR TOP
[2020-01-25] MEDS ORDERED: diphenhydrAMINE 25MG CAP PO ONE (08:30)
[2020-01-25 09:02] LABS: BASO % 0.4 % (0.0-1.0); EOS # 0.1 10^3/uL (0.0-0.5); EOS % 0.7 % (0.0-3.0); HEMOGLOBIN 13.8 g/dl (12.0-15.5); LYMPH # 2.2 10^3/uL (1.5-5.0); LYMPH % 29.2 % (24.0-44.0); MEAN CORPUSCULAR HEMOGLOBIN 32.5 pg (27.0-33.0); MEAN CORPUSCULAR HGB CONC 35.4 g/dl (32.0-36.5); MEAN CORPUSCULAR VOLUME 91.8 fl (80.0-96.0); MONO # 0.5 10^3/uL (0.0-0.8); MONO % 6.3 % (0.0-5.0); NEUTROPHILS # 4.7 10^3/uL (1.5-8.5); PLATELET COUNT, AUTOMATED 273 10^3/uL (150-450); RED BLOOD COUNT 4.25 10^6/uL (4.00-5.40); WHITE BLOOD COUNT 7.4 10^3/uL (4.0-10.0)
[2020-01-25 09:23] LABS: ALBUMIN 3.3 GM/DL (3.2-5.2); ALT/SGPT 137 U/L (12-78); BILIRUBIN,TOTAL 0.5 MG/DL (0.2-1.0); BLOOD UREA NITROGEN 18 MG/DL (7-18); CALCIUM LEVEL 8.6 MG/DL (8.5-10.1); CARBON DIOXIDE LEVEL 27 MEQ/L (21-32); CHLORIDE LEVEL 105 MEQ/L (98-107); CK-MB VALUE MASS 3.1 NG/ML (<3.6); CPK CREATINE PHOSPHOKINASE 75 U/L (26-192); CREATININE FOR GFR 0.83 MG/DL (0.55-1.30); GLOMERULAR FILTRATION RATE > 60.0 (>58); GLUCOSE, FASTING 86 MG/DL (70-100); MB/CK RELATIVE INDEX 4.13 (< OR =4); SODIUM LEVEL 139 MEQ/L (136-145); TOTAL PROTEIN 7.7 GM/DL (6.4-8.2); TROPONIN I < 0.02 NG/ML (< 0.10)
[2020-01-25 09:28] LABS: HCG, SERUM QUALITATIVE NEGATIVE (NEGATIVE)
[2020-01-25 09:29] LABS: ERYTHROCYTE SEDIMENTATION RATE 23 mm/hr (0-20)
[2020-01-25] MEDS ORDERED: PENICILLIN V POTASSIUM 500 MG TAB PO ONE (11:45)
[2020-01-25] MEDS ORDERED: DOXYCYCLINE HYCLATE 100MG TABLET PO ONE (11:45)
[2020-01-25] MEDS ORDERED: MUPIROCIN 2% OINT 22 GM TUBE TOP ONE (11:45)
[2020-01-25] MEDS ORDERED: BICILLIN L-A 2,400,000 UNIT/4 ML SYRINGE (J0561-24)PENICILLIN G BENZATINE IM ONE (11:45)
[2020-01-25] MEDS ORDERED: DOXY100C37 PO (11:53)
[2020-01-25 12:06] VITALS: BP 111/76
--- NOTE | 2020-01-25 12:12 | REP ---
CHEST, SINGLE VIEW: There is no evidence of acute infiltrate. No pleural effusion is seen. The heart is normal in size. The mediastinal silhouette is unremarkable. The visualized osseous structures are intact. IMPRESSION: No acute pulmonary disease. Electronically Signed by Paul Marin MD 01/25/2020 12:13 P
--- NOTE | 2020-01-25 19:05 | ECGEPIP ---
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
== END 2020-01-25 12:23 | disposition home or self-care (01) ==
LOC: M ED 07:30
DX: Z20.828 Contact with and (suspected) exposure to other viral communicable diseases (principal); F11.10 Opioid abuse, uncomplicated; J06.9 Acute upper respiratory infection, unspecified; L29.9 Pruritus, unspecified; A49.02 Methicillin resistant Staphylococcus aureus infection, unspecified site; I25.10 Atherosclerotic heart disease of native coronary artery without angina pectoris; K76.0 Fatty (change of) liver, not elsewhere classified; F33.9 Major depressive disorder, recurrent, unspecified; F41.9 Anxiety disorder, unspecified; B15.9 Hepatitis A without hepatic coma; B19.20 Unspecified viral hepatitis C without hepatic coma; I25.2 Old myocardial infarction; F17.210 Nicotine dependence, cigarettes, uncomplicated
CPT/HCPCS: 36415; 71045; 80053; 82550; 82553; 83605; 84484; 84703; 85025; 85652; 86140; 87040; 87486; 87581; 87633; 87798; 87880; 93005; 96372; 99284; J0561; U0002

== ENCOUNTER 2020-04-03 13:01 | Emergency (ER) | payer MEDICAID, SELFPAY ==
[~2020-04-03] VITALS: Ht 157.5 cm; Wt 59.2 kg
[2020-04-03 13:02] VITALS: BP 122/75
[2020-04-03] MEDS ORDERED: MUPI2OI TOP (13:58)
== END 2020-04-03 14:12 | disposition home or self-care (01) ==
LOC: M ED 13:01
DX: J34.0 Abscess, furuncle and carbuncle of nose (principal)

== ENCOUNTER 2020-09-02 18:05 | Emergency (ER) | payer SELFPAY ==
[~2020-09-02] VITALS: Ht 157.5 cm; Wt 54.5 kg
[~2020-09-02 18:05] MED LIST changes: +MUPI2OI TOP
[2020-09-02] MEDS ORDERED: NS 1,000 ML IV ONE (19:45)
[2020-09-02 20:39] LABS: BASO % 0.2 % (0.0-1.0); EOS % 0.1 % (0.0-3.0); HEMATOCRIT 38.1 % (36.0-47.0); HEMOGLOBIN 12.9 g/dl (12.0-15.5); LYMPH # 0.3 10^3/uL (1.5-5.0); LYMPH % 2.8 % (24.0-44.0); MEAN CORPUSCULAR HEMOGLOBIN 31.2 pg (27.0-33.0); MEAN CORPUSCULAR HGB CONC 33.9 g/dl (32.0-36.5); MONO # 0.1 10^3/uL (0.0-0.8); MONO % 1.2 % (0.0-5.0); NEUTROPHILS # 9.5 10^3/uL (1.5-8.5); NEUTROPHILS % 95.3 % (36.0-66.0); PLATELET COUNT, AUTOMATED 163 10^3/uL (150-450); RED BLOOD COUNT 4.14 10^6/uL (4.00-5.40); WHITE BLOOD COUNT 9.9 10^3/uL (4.0-10.0)
[2020-09-02 21:14] LABS: ALBUMIN 3.5 GM/DL (3.2-5.2); ALT/SGPT 150 U/L (12-78); BILIRUBIN,DIRECT 0.7 MG/DL (0.0-0.2); BILIRUBIN,TOTAL 1.1 MG/DL (0.2-1.0); BLOOD UREA NITROGEN 13 MG/DL (7-18); CARBON DIOXIDE LEVEL 25 MEQ/L (21-32); CHLORIDE LEVEL 105 MEQ/L (98-107); GLOMERULAR FILTRATION RATE > 60.0 (>58); GLUCOSE, FASTING 114 MG/DL (70-100); LIPASE 124 U/L (73-393); POTASSIUM SERUM 3.4 MEQ/L (3.5-5.1); SODIUM LEVEL 138 MEQ/L (136-145); TOTAL PROTEIN 6.9 GM/DL (6.4-8.2)
--- NOTE | 2020-09-02 22:02 | REPVR ---
PROCEDURE INFORMATION: Exam: XR Chest, 1 View Exam date and time: 09/02/2020 9:43 PM Age: 39 years old Clinical indication: Other: Sirs TECHNIQUE: Imaging protocol: XR of the chest Views: 1 view. COMPARISON: IN PORTABLE CHEST X-RAY 01/25/2020 9:34 AM FINDINGS: Lungs: Mild pulmonary hyperinflation which is similar. Coarse bibasilar interstitium suggesting minimal infiltrate or atelectasis. Pleural space: Unremarkable. No pleural effusion. No pneumothorax. Heart/Mediastinum: The heart and mediastinum are unchanged. Bones/joints: Unremarkable. IMPRESSION: 1. Coarse bibasilar interstitium suggesting minimal infiltrate or atelectasis since 01/25/2020. 2. Otherwise stable chest. Electronically signed by: Markell Loera On 09/02/2020 22:02:06 PM
[2020-09-02 23:21] VITALS: BP 97/62
--- NOTE | 2020-09-03 19:22 | ECGEPIP ---
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
== END 2020-09-02 23:26 | disposition home or self-care (01) ==
LOC: M ED 18:05 → EDBD 18:05 → M ED 23:26
DX: J06.9 Acute upper respiratory infection, unspecified (principal); B18.9 Chronic viral hepatitis, unspecified; R00.0 Tachycardia, unspecified; F15.10 Other stimulant abuse, uncomplicated; F17.200 Nicotine dependence, unspecified, uncomplicated

== ENCOUNTER 2020-09-07 14:39 | Emergency (ER) | payer SELFPAY ==
[~2020-09-07] VITALS: Ht 157.5 cm; Wt 55.1 kg
[2020-09-07 15:13] LABS: BASO % 0.6 % (0.0-1.0); EOS # 0.1 10^3/uL (0.0-0.5); HEMATOCRIT 40.6 % (36.0-47.0); HEMOGLOBIN 13.7 g/dl (12.0-15.5); LYMPH % 45.8 % (24.0-44.0); MEAN CORPUSCULAR HGB CONC 33.7 g/dl (32.0-36.5); MEAN CORPUSCULAR VOLUME 91.9 fl (80.0-96.0); MONO # 0.5 10^3/uL (0.0-0.8); MONO % 7.9 % (0.0-5.0); NEUTROPHILS # 2.8 10^3/uL (1.5-8.5); NEUTROPHILS % 42.8 % (36.0-66.0); PLATELET COUNT, AUTOMATED 233 10^3/uL (150-450); RED BLOOD COUNT 4.42 10^6/uL (4.00-5.40); WHITE BLOOD COUNT 6.5 10^3/uL (4.0-10.0)
[2020-09-07] MEDS ORDERED: LORazepam 2 MG/ML VIAL IV STA (15:16)
[2020-09-07] MEDS ORDERED: NS 1,000 ML IV ONE ×2 (15:30→19:30)
[2020-09-07] MEDS ORDERED: ONDANSETRON 4MG/2ML VIAL IV ONE (15:30)
[2020-09-07] MEDS ORDERED: LORazepam 2 MG/ML VIAL As Ordered ONE (15:31)
[2020-09-07 15:33] LABS: HCG, SERUM QUALITATIVE NEGATIVE (NEGATIVE)
[2020-09-07 15:41] LABS: ACETAMINOPHEN LEVEL < 2.0 UG/ML (10.0-30.0); ALBUMIN 3.8 GM/DL (3.2-5.2); ALT/SGPT 68 U/L (12-78); BILIRUBIN,DIRECT 0.1 MG/DL (0.0-0.2); BILIRUBIN,TOTAL 0.3 MG/DL (0.2-1.0); BLOOD UREA NITROGEN 13 MG/DL (7-18); CALCIUM LEVEL 9.3 MG/DL (8.5-10.1); CARBON DIOXIDE LEVEL 28 MEQ/L (21-32); CHLORIDE LEVEL 107 MEQ/L (98-107); CPK CREATINE PHOSPHOKINASE 47 U/L (26-192); CREATININE FOR GFR 0.93 MG/DL (0.55-1.30); ETHYL ALCOHOL (ETHANOL) < 0.003 % (0.000-0.010); GLOMERULAR FILTRATION RATE > 60.0 (>58); GLUCOSE, FASTING 87 MG/DL (70-100); POTASSIUM SERUM 3.7 MEQ/L (3.5-5.1); SALICYLATE LEVEL 5.7 MG/DL (5.0-30.0); SODIUM LEVEL 140 MEQ/L (136-145); TOTAL PROTEIN 7.7 GM/DL (6.4-8.2)
[2020-09-07] MEDS ORDERED: FAMOTIDINE IV BAG 20 MG in IV 1 EA IV ONE (19:30)
[2020-09-07] MEDS ORDERED: MORPHINE 10 MG/ML 1ML VIAL (J2270) IM ONE (19:30)
[2020-09-07] MEDS ORDERED: MAALOX 30 ML SUSP *UDC PO ONE (19:30)
[2020-09-07 19:57] LABS: AMPHETAMINES LEVEL URINE POSITIVE (NEGATIVE); BARBITURATES URINE NEGATIVE (NEGATIVE); BENZODIAZEPINES URINE NEGATIVE (NEGATIVE); CANNABINOIDS URINE NEGATIVE (NEGATIVE); COCAINE METABOLITE URINE NEGATIVE (NEGATIVE); METHADONE URINE NEGATIVE (NEGATIVE); OPIATES URINE NEGATIVE (NEGATIVE); PHENCYCLIDINE URINE NEGATIVE (NEGATIVE)
[2020-09-07 21:18] VITALS: BP 115/83
--- NOTE | 2020-09-07 21:18 | ECGEPIP ---
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
== END 2020-09-07 21:20 | disposition home or self-care (01) ==
LOC: M ED 14:39 → EDBD 14:39 → M ED 21:20
DX: T43.601A Poisoning by unspecified psychostimulants, accidental (unintentional), initial encounter (principal); F15.120 Other stimulant abuse with intoxication, uncomplicated; B18.2 Chronic viral hepatitis C
CPT/HCPCS: 36415; 80048; 80076; 80307; 82550; 84443; 84703; 85025; 93005; 93041; 94760; 96361; 96374; 99285; G0480; J2060; J2405

== ENCOUNTER 2020-09-21 00:31 | Emergency (ER) | payer SELFPAY ==
[~2020-09-21] VITALS: Ht 157.5 cm; Wt 58.8 kg
[2020-09-21] MEDS ORDERED: NS 1,000 ML IV ONE (01:30)
[2020-09-21] MEDS ORDERED: KETOROLAC 30 MG/ML 1ML VIAL IV ONE (01:30)
[2020-09-21] MEDS ORDERED: ONDANSETRON 4MG/2ML VIAL IV ONE (01:30)
[2020-09-21 01:34] LABS: BASO # 0.1 10^3/uL (0.0-0.2); BASO % 0.8 % (0.0-1.0); EOS # 0.1 10^3/uL (0.0-0.5); EOS % 1.8 % (0.0-3.0); HEMATOCRIT 38.1 % (36.0-47.0); HEMOGLOBIN 12.7 g/dl (12.0-15.5); LYMPH # 2.6 10^3/uL (1.5-5.0); LYMPH % 42.6 % (24.0-44.0); MEAN CORPUSCULAR HEMOGLOBIN 30.8 pg (27.0-33.0); MEAN CORPUSCULAR HGB CONC 33.3 g/dl (32.0-36.5); MEAN CORPUSCULAR VOLUME 92.5 fl (80.0-96.0); MONO # 0.7 10^3/uL (0.0-0.8); MONO % 11.2 % (0.0-5.0); NEUTROPHILS # 2.6 10^3/uL (1.5-8.5); NEUTROPHILS % 42.9 % (36.0-66.0); PLATELET COUNT, AUTOMATED 254 10^3/uL (150-450); RED BLOOD COUNT 4.12 10^6/uL (4.00-5.40); WHITE BLOOD COUNT 6.1 10^3/uL (4.0-10.0)
[2020-09-21 02:06] LABS: ALBUMIN 3.5 GM/DL (3.2-5.2); ALT/SGPT 116 U/L (12-78); BILIRUBIN,DIRECT 0.1 MG/DL (0.0-0.2); BILIRUBIN,TOTAL 0.2 MG/DL (0.2-1.0); BLOOD UREA NITROGEN 13 MG/DL (7-18); CALCIUM LEVEL 8.9 MG/DL (8.5-10.1); CARBON DIOXIDE LEVEL 25 MEQ/L (21-32); CHLORIDE LEVEL 108 MEQ/L (98-107); CK-MB VALUE MASS 2.1 NG/ML (<3.6); CPK CREATINE PHOSPHOKINASE 118 U/L (26-192); CREATININE FOR GFR 0.74 MG/DL (0.55-1.30); GLOMERULAR FILTRATION RATE > 60.0 (>58); GLUCOSE, FASTING 87 MG/DL (70-100); LIPASE 206 U/L (73-393); MB/CK RELATIVE INDEX 1.78 (< OR =4); POTASSIUM SERUM 3.9 MEQ/L (3.5-5.1); SODIUM LEVEL 137 MEQ/L (136-145); TOTAL PROTEIN 7.6 GM/DL (6.4-8.2); TROPONIN I < 0.02 NG/ML (< 0.10)
[2020-09-21 02:28] LABS: HCG, SERUM QUALITATIVE NEGATIVE (NEGATIVE)
[2020-09-21] MEDS ORDERED: FAMOTIDINE 20 MG TAB PO ONE (02:45)
--- NOTE | 2020-09-21 02:56 | REPVR ---
PROCEDURE INFORMATION: Exam: XR Chest, 2 Views Exam date and time: 09/21/2020 2:26 AM Age: 39 years old Clinical indication: Epigastric pain TECHNIQUE: Imaging protocol: XR of the chest Views: 2 views. COMPARISON: CR Chest, 1 view 09/02/2020 9:35 PM FINDINGS: Lungs: Unremarkable. No consolidation. No pulmonary edema. Pleural space: Unremarkable. No pleural effusion or pneumothorax is identified. Heart/Mediastinum: Unremarkable. No cardiomegaly. Bones/joints: Unremarkable. IMPRESSION: No acute findings. Electronically signed by: Uriah Aquino On 09/21/2020 02:56:46 AM
--- NOTE | 2020-09-21 05:40 | ECGEPIP ---
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
[2020-09-21] MEDS ORDERED: PEPC1TAB5 PO (05:57)
[2020-09-21 06:00] VITALS: BP 136/84
== END 2020-09-21 06:15 | disposition home or self-care (01) ==
LOC: M ED 00:31
DX: K29.70 Gastritis, unspecified, without bleeding (principal); I25.2 Old myocardial infarction; J45.909 Unspecified asthma, uncomplicated; B19.20 Unspecified viral hepatitis C without hepatic coma; B19.10 Unspecified viral hepatitis B without hepatic coma; F17.200 Nicotine dependence, unspecified, uncomplicated; F19.10 Other psychoactive substance abuse, uncomplicated
CPT/HCPCS: 71046; 80048; 80076; 81001; 82550; 82553; 83690; 84484; 84702; 84703; 85025; 93005; 93041; 96361; 96374; 96375; 99285; J1885; J2405

== ENCOUNTER 2020-10-14 11:48 | Emergency (ER) | payer SELFPAY ==
[~2020-10-14] VITALS: Ht 157.5 cm; Wt 55.5 kg
[~2020-10-14 11:48] MED LIST changes: +PEPC1TAB5 PO
[2020-10-14 12:13] LABS: BASO % 0.6 % (0.0-1.0); EOS % 0.8 % (0.0-3.0); HEMATOCRIT 32.7 % (36.0-47.0); HEMOGLOBIN 11.4 g/dl (12.0-15.5); LYMPH # 2.9 10^3/uL (1.5-5.0); LYMPH % 56.4 % (24.0-44.0); MEAN CORPUSCULAR HEMOGLOBIN 31.2 pg (27.0-33.0); MEAN CORPUSCULAR HGB CONC 34.9 g/dl (32.0-36.5); MEAN CORPUSCULAR VOLUME 89.6 fl (80.0-96.0); MONO # 0.5 10^3/uL (0.0-0.8); MONO % 8.9 % (0.0-5.0); NEUTROPHILS # 1.7 10^3/uL (1.5-8.5); NEUTROPHILS % 33.1 % (36.0-66.0); PLATELET COUNT, AUTOMATED 227 10^3/uL (150-450); RED BLOOD COUNT 3.65 10^6/uL (4.00-5.40); WHITE BLOOD COUNT 5.2 10^3/uL (4.0-10.0)
--- NOTE | 2020-10-14 12:16 | REP ---
INDICATION: CHEST PAIN COMPARISON: 09/21/2020 TECHNIQUE: Portable AP view of the chest FINDINGS: The mediastinum and cardiac silhouette are stable and within normal limits for portable technique. The lung beasley are clear without acute consolidation, effusion, or pneumothorax. Skeletal structures are intact. IMPRESSION: No acute cardiopulmonary process appreciated. <Electronically signed by Hans Yanes > 10/14/20 [id number]
[2020-10-14 12:24] LABS: INR 0.93; PROTHROMBIN TIME 12.7 SECONDS (12.5-14.3)
[2020-10-14 12:45] LABS: ALBUMIN 3.2 GM/DL (3.2-5.2); ALT/SGPT 72 U/L (12-78); BILIRUBIN,DIRECT < 0.1 MG/DL (0.0-0.2); BILIRUBIN,TOTAL 0.1 MG/DL (0.2-1.0); CK-MB VALUE MASS 5.7 NG/ML (<3.6); CPK CREATINE PHOSPHOKINASE 224 U/L (26-192); LIPASE 198 U/L (73-393); MB/CK RELATIVE INDEX 2.54 (< OR =4); TOTAL PROTEIN 6.9 GM/DL (6.4-8.2); TROPONIN I < 0.02 NG/ML (< 0.10)
[2020-10-14 12:59] LABS: C REACTIVE PROTEIN QUANTITATIV < 0.30 MG/DL (0.00-0.30)
[2020-10-14 13:12] LABS: ERYTHROCYTE SEDIMENTATION RATE 24 mm/hr (0-20)
[2020-10-14] MEDS ORDERED: NS 1,000 ML IV ONE (14:45)
[2020-10-14 14:52] LABS: RSV AMPLIFICATION NEGATIVE (NEGATIVE)
[2020-10-14 15:47] LABS: D-DIMER QUANT 333.84 ng/ml (<500)
[2020-10-14 15:54] LABS: FERRITIN 34 NG/ML (8-252)
[2020-10-14] MEDS ORDERED: FAMO20TA PO (16:34)
[2020-10-14 16:53] LABS: AMPHETAMINES LEVEL URINE POSITIVE (NEGATIVE); BARBITURATES URINE NEGATIVE (NEGATIVE); BENZODIAZEPINES URINE NEGATIVE (NEGATIVE); CANNABINOIDS URINE NEGATIVE (NEGATIVE); COCAINE METABOLITE URINE NEGATIVE (NEGATIVE); METHADONE URINE NEGATIVE (NEGATIVE); OPIATES URINE NEGATIVE (NEGATIVE); PHENCYCLIDINE URINE NEGATIVE (NEGATIVE)
[2020-10-14 19:19] LABS: CK-MB VALUE MASS 3.6 NG/ML (<3.6); CPK CREATINE PHOSPHOKINASE 160 U/L (26-192); MB/CK RELATIVE INDEX 2.25 (< OR =4); TROPONIN I < 0.02 NG/ML (< 0.10)
[2020-10-14 19:45] VITALS: BP 120/69
--- NOTE | 2020-10-15 07:36 | ECGEPIP ---
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
== END 2020-10-14 20:23 | disposition home or self-care (01) ==
LOC: M ED 11:48 → EDBD 11:48 → M ED 20:23
DX: U07.1 COVID-19 (principal); R07.9 Chest pain, unspecified; R06.02 Shortness of breath; F17.200 Nicotine dependence, unspecified, uncomplicated

== ENCOUNTER 2020-11-28 22:10 | Emergency (ER) | payer MEDICAID, SELFPAY ==
[~2020-11-28 22:10] MED LIST changes: +FAMO20TA PO
[2020-11-28] MEDS ORDERED: NS 1,000 ML IV ONE (22:30)
[2020-11-28 23:27] LABS: BASO # 0.1 10^3/uL (0.0-0.2); BASO % 0.5 % (0.0-1.0); EOS # 0.1 10^3/uL (0.0-0.5); EOS % 0.7 % (0.0-3.0); HEMATOCRIT 41.7 % (36.0-47.0); LYMPH % 20.8 % (24.0-44.0); MEAN CORPUSCULAR HEMOGLOBIN 30.9 pg (27.0-33.0); MEAN CORPUSCULAR HGB CONC 33.6 g/dl (32.0-36.5); MEAN CORPUSCULAR VOLUME 92.1 fl (80.0-96.0); MONO # 0.6 10^3/uL (0.0-0.8); MONO % 6.4 % (0.0-5.0); NEUTROPHILS # 6.8 10^3/uL (1.5-8.5); NEUTROPHILS % 71.1 % (36.0-66.0); PLATELET COUNT, AUTOMATED 240 10^3/uL (150-450); RED BLOOD COUNT 4.53 10^6/uL (4.00-5.40); WHITE BLOOD COUNT 9.6 10^3/uL (4.0-10.0)
[2020-11-28] MEDS ORDERED: PEPC1TAB5 (23:29)
[2020-11-28] MEDS ORDERED: hydrOXYzine 25 MG TAB PO ONE (23:30)
[2020-11-29 00:12] LABS: ACETAMINOPHEN LEVEL < 2.0 UG/ML (10.0-30.0); ALBUMIN 3.8 GM/DL (3.2-5.2); ALT/SGPT 110 U/L (12-78); BILIRUBIN,DIRECT 0.3 MG/DL (0.0-0.2); BILIRUBIN,TOTAL 0.5 MG/DL (0.2-1.0); BLOOD UREA NITROGEN 13 MG/DL (7-18); CALCIUM LEVEL 9.2 MG/DL (8.5-10.1); CARBON DIOXIDE LEVEL 24 MEQ/L (21-32); CHLORIDE LEVEL 105 MEQ/L (98-107); CPK CREATINE PHOSPHOKINASE 169 U/L (26-192); CREATININE FOR GFR 0.91 MG/DL (0.55-1.30); ETHYL ALCOHOL (ETHANOL) < 0.003 % (0.000-0.010); GLOMERULAR FILTRATION RATE > 60.0 (>58); GLUCOSE, FASTING 87 MG/DL (70-100); POTASSIUM SERUM 3.9 MEQ/L (3.5-5.1); SALICYLATE LEVEL < 1.7 MG/DL (5.0-30.0); SODIUM LEVEL 139 MEQ/L (136-145); TOTAL PROTEIN 8.3 GM/DL (6.4-8.2)
[2020-11-29 00:15] VITALS: BP 133/87
[2020-11-29 00:24] LABS: HCG, SERUM QUALITATIVE NEGATIVE (NEGATIVE)
[2020-11-29 00:25] LABS: AMPHETAMINES LEVEL URINE POSITIVE (NEGATIVE); BARBITURATES URINE NEGATIVE (NEGATIVE); BENZODIAZEPINES URINE NEGATIVE (NEGATIVE); CANNABINOIDS URINE NEGATIVE (NEGATIVE); COCAINE METABOLITE URINE NEGATIVE (NEGATIVE); METHADONE URINE NEGATIVE (NEGATIVE); OPIATES URINE POSITIVE (NEGATIVE); PHENCYCLIDINE URINE NEGATIVE (NEGATIVE)
--- NOTE | 2020-11-30 07:47 | ECGEPIP ---
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
[2020-12-17] MEDS ORDERED: ACET32TAB PO (22:50)
== END 2020-11-29 01:03 | disposition home or self-care (01) ==
LOC: M ED 22:10
DX: F11.10 Opioid abuse, uncomplicated (principal)

== ENCOUNTER 2020-12-17 21:35 | Inpatient (IN) | payer MEDICAID, SELFPAY ==
[~2020-12-17] VITALS: Ht 157.5 cm; Wt 60.0 kg
[~2020-12-17 21:35] MED LIST changes: +PEPC1TAB5
--- OUTSIDE RECORDS SUMMARY | 2020-12-17 21:41 | CCD ---
Author Author [facility] Organization [facility] Address Unknown Phone Unavailable Care Team Providers Care Speaker Mounter Name Role Phone Jose Juan Phipps MD Unavailable Unavailable Jose Juan Phipps MD Unavailable Unavailable Jose Juan Phipps MD Unavailable Unavailable Jose Juan Phipps MD Unavailable Unavailable Jose Juan Phipps MD Unavailable Unavailable Jose Juan Phipps MD Unavailable Unavailable Jose Juan Phipps MD Unavailable Unavailable Jose Juan Phipps MD Unavailable Unavailable Jose Juan Phipps MD Unavailable Unavailable Jose Juan Phipps MD Unavailable Unavailable Jose Juan Phipps MD Unavailable Unavailable Jose Juan Phipps MD Unavailable Unavailable Jose Juan Phipps MD Unavailable Unavailable Jose Juan Phipps MD Unavailable Unavailable Jose Juan Phipps MD Unavailable Unavailable Jose Juan Phipps MD Unavailable Unavailable Jose Juan Phipps MD Unavailable Unavailable Jose Juan Phipps MD Unavailable Unavailable Jose Juan Phipps MD Unavailable Unavailable Jose Juan Phipps MD Unavailable Unavailable Jose Juan Phipps MD Unavailable Unavailable Jose Juan Phipps MD Unavailable Unavailable Jose Juan Phipps MD Unavailable Unavailable Jose Juan Phipps MD Unavailable Unavailable Jose Juan Phipps MD Unavailable Unavailable Jose Juan Phipps MD Unavailable Unavailable Jose Juan Phipps MD Unavailable Unavailable Jose Juan Phipps MD Unavailable Unavailable Jose Juan Phipps MD Unavailable Unavailable Jose Juan Phipps MD Unavailable Unavailable Jose Juan Phipps MD Unavailable Unavailable Jose Juan Phipps MD Unavailable Unavailable Jose Juan Phipps MD Unavailable Unavailable Jose Juan Phipps MD Unavailable Unavailable Jose Juan Phipps MD Unavailable Unavailable Jose Juan Phipps MD Unavailable Unavailable Jose Juan Phipps MD Unavailable Unavailable Jose Juan Phipps MD Unavailable Unavailable Jose Juan Phipps MD Unavailable Unavailable Jose Juan Phipps MD Unavailable Unavailable Jose Juan Phipps MD Unavailable Unavailable Jose Juan Phipps MD Unavailable Unavailable Jose Juan Phipps MD Unavailable Unavailable Jose Juan Phipps MD Unavailable Unavailable Jose Juan Phipps MD Unavailable Unavailable Jose Juan Phipps MD Unavailable Unavailable Jose Juan Phipps MD Unavailable Unavailable Jose Juan Phipps MD Unavailable Unavailable Jose Juan Phipps MD Unavailable Unavailable Jose Juan Phipps MD Unavailable Unavailable Jose Juan Phipps MD Unavailable Unavailable Jose Juan Phipps MD Unavailable Unavailable Jose Juan Phipps MD Unavailable Unavailable Jose Juan Phipps MD Unavailable Unavailable Jose Juan Phipps MD Unavailable Unavailable Jose Juan Phipps MD Unavailable Unavailable Jose Juan Phipps MD Unavailable Unavailable Jose Juan Phipps MD Unavailable Unavailable Jose Juan Phipps MD Unavailable Unavailable Jose Juan Phipps MD Unavailable Unavailable Jose Juan Phipps MD Unavailable Unavailable Jose Juan Phipps MD Unavailable Unavailable Jose Juan Phipps MD Unavailable Unavailable Jose Juan Phipps MD Unavailable Unavailable Jose Juan Phipps MD Unavailable Unavailable Jose Juan Phipps MD Unavailable Unavailable Jose Juan Phipps MD Unavailable Unavailable Jose Juan Phipps MD Unavailable Unavailable Jose Juan Phipps MD Unavailable Unavailable Jose Juan Phipps MD Unavailable Unavailable Jose Juan Phipps MD Unavailable Unavailable Jose Juan Phipps MD Unavailable Unavailable Jose Juan Phipps MD Unavailable Unavailable Jose Juan Phipps MD Unavailable Unavailable Jose Juan Phipps MD Unavailable Unavailable Jose Juan Phipps MD Unavailable Unavailable Jose Juan Phipps MD Unavailable Unavailable Jose Juan Phipps MD Unavailable Unavailable Jose Juan Phipps MD Unavailable Unavailable Jose Juan Phipps MD Unavailable Unavailable Jose Juan Phipps MD Unavailable Unavailable Jose Juan Phipps MD Unavailable Unavailable Jose Juan Phipps MD Unavailable Unavailable Jose Juan Phipps MD Unavailable Unavailable Jose Juan Phipps MD Unavailable Unavailable Jose Juan Phipps MD Unavailable Unavailable Jose Juan Phipps MD Unavailable Unavailable Jose Juan Phipps MD Unavailable Unavailable Jose Juan Phipps MD Unavailable Unavailable Sam ALVAREZ MD Unavailable Unavailable Sam ALVAREZ MD Unavailable Unavailable Sam ALVAREZ MD Unavailable Unavailable Sam ALVAREZ MD Unavailable Unavailable Sam ALVAREZ MD Unavailable Unavailable Sam ALVAREZ MD Unavailable Unavailable Sam ALVAREZ MD Unavailable Unavailable Sam ALVAREZ MD Unavailable Unavailable Sam ALVAREZ MD Unavailable Unavailable Sam ALVAREZ MD Unavailable Unavailable Sam ALVAREZ MD Unavailable Unavailable Sam ALVAREZ MD Unavailable Unavailable Sam ALVAREZ MD Unavailable Unavailable Sam ALVAREZ MD Unavailable Unavailable Sam ALVAREZ MD Unavailable Unavailable Sam ALVAREZ MD Unavailable Unavailable Sam ALVAREZ MD Unavailable Unavailable Sam ALVAREZ MD Unavailable Unavailable Sam ALVAREZ MD Unavailable Unavailable Sam ALVAREZ MD Unavailable Unavailable Sam ALVAREZ MD Unavailable Unavailable Sam ALVAREZ MD Unavailable Unavailable Sam ALVAREZ MD Unavailable Unavailable Sam ALVAREZ MD Unavailable Unavailable Sam ALVAREZ MD Unavailable Unavailable Sam ALVAREZ MD Unavailable Unavailable Sam ALVAREZ MD Unavailable Unavailable Sam ALVAREZ MD Unavailable Unavailable Sam ALVAREZ MD Unavailable Unavailable Sam ALVAREZ MD Unavailable Unavailable Sam ALVAREZ MD Unavailable Unavailable Sam ALVAREZ MD Unavailable Unavailable Sam ALVAREZ MD Unavailable Unavailable Sam ALVAREZ MD Unavailable Unavailable Sam ALVAREZ MD Unavailable Unavailable Sam ALVAREZ MD Unavailable Unavailable Sam ALVAREZ MD Unavailable Unavailable Sam ALVAREZ MD Unavailable Unavailable Sam ALVAREZ MD Unavailable Unavailable Sam ALVAREZ MD Unavailable Unavailable Sam ALVAREZ MD Unavailable Unavailable Sam ALVAREZ MD Unavailable Unavailable Sam ALVAREZ MD Unavailable Unavailable Sam ALVAREZ MD Unavailable Unavailable Sam ALVAREZ MD Unavailable Unavailable Sam ALVAREZ MD Unavailable Unavailable Sam ALVAREZ MD Unavailable Unavailable Sam ALVAREZ MD Unavailable Unavailable Sam ALVAREZ MD Unavailable Unavailable Sam ALVAREZ MD Unavailable Unavailable Sam ALVAREZ MD Unavailable Unavailable Sam ALVAREZ MD Unavailable Unavailable Sam ALVAREZ MD Unavailable Unavailable Sam ALVAREZ MD Unavailable Unavailable Sam ALVAREZ MD Unavailable Unavailable Sam ALVAREZ MD Unavailable Unavailable Sam ALVAREZ MD Unavailable Unavailable Sam ALVAREZ MD Unavailable Unavailable Sam ALVAREZ MD Unavailable Unavailable Sam ALVAREZ MD Unavailable Unavailable Sam ALVAREZ MD Unavailable Unavailable KIM, T DIONNE FULLER Unavailable Unavailable KIM, T DIONNE MD Unavailable Unavailable KIM, T DIONNE MD Unavailable Unavailable KIM, T DIONNE MD Unavailable Unavailable KIM, T DIONNE MD Unavailable Unavailable KIM, T DIONNE MD Unavailable Unavailable KIM, T DIONNE MD Unavailable Unavailable KIM, T DIONNE MD Unavailable Unavailable KIM, T DIONNE MD Unavailable Unavailable KIM, T DIONNE MD Unavailable Unavailable KIM, T DIONNE MD Unavailable Unavailable KIM, T DIONNE MD Unavailable Unavailable KIM, T DIONNE MD Unavailable Unavailable KIM, T DIONNE MD Unavailable Unavailable KIM, T DIONNE MD Unavailable Unavailable KIM, T DIONNE MD Unavailable Unavailable KIM, T DIONNE MD Unavailable Unavailable KIM, T DIONNE MD Unavailable Unavailable KIM, T DIONNE MD Unavailable Unavailable KIM, T DIONNE MD Unavailable Unavailable KIM, T DIONNE MD Unavailable Unavailable KIM, T DIONNE MD Unavailable Unavailable Re-disclosure Warning The records that you are about to access may contain information from federally-assisted alcohol or drug abuse programs. If such information is present, then the following federally mandated warning applies: This information has been disclosed to you from records protected by federal confidentiality rules (42 CFR part 2). The federal rules prohibit you from making any further disclosure of this information unless further disclosure is expressly permitted by the written consent of the person to whom it pertains or as otherwise permitted by 42 CFR part 2. A general authorization for the release of medical or other information is NOT sufficient for this purpose. The Federal rules restrict any use of the information to criminally investigate or prosecute any alcohol or drug abuse patient.The records that you are about to access may contain highly sensitive health information, the redisclosure of which is protected by Article 27-F of the [facility] Public Health law. If you continue you may have access to information: Regarding HIV / AIDS; Provided by facilities licensed or operated by the [facility] Office of Mental Health; or Provided by the [facility] Office for People With Developmental Disabilities. If such information is present, then the following [facility] mandated warning applies: This information has been disclosed to you from confidential records which are protected by state law. State law prohibits you from making any further disclosure of this information without the specific written consent of the person to whom it pertains, or as otherwise permitted by law. Any unauthorized further disclosure in violation of state law may result in a fine or snf sentence or both. A general authorization for the release of medical or other information is NOT sufficient authorization for further disc losure. Encounters Encounter Providers Location Date Indications Data Source(s ) Outpatient Attender: Mynor Phipps MD 04/05/2020 11:19:[address] [facility] Outpatient Attender: Mynor Phipps MD FP 03/30/2020 07:58:[address] [facility] Outpatient Attender: Mynor Phipps MD FP 03/21/2020 12:02:[address] [facility] Outpatient Attender: Mynor Phipps MD 03/20/2020 12:18:[address] [facility] Outpatient Attender: Mynor Phipps MD 03/01/2020 09:05:[address] [facility] Outpatient Attender: Mynor Phipps MD 03/01/2020 08:05:[address] [facility] Outpatient 02/10/2020 06:56:00 AM EDT [facility] Outpatient Attender: Mynor Phipps MD 01/28/2020 01:45:[address] [facility] Outpatient Attender: DIONNE ALVRAEZ MD 01/27/2020 09:00:[address] [facility] Insurance Providers Payer name Policy type / Coverage type Policy ID Covered alliance party ID Covered alliance party's relationship to diallo Policy Diallo Plan Information SELF PAY ONLY [id number] O UNAVAILABLE UNAVAILA BLE COVID19 HRSA UNINSURED FUND SP EMEDNY [id number] SP [id number] Self Pay P UNAVAILABLE S UNAVAILA BLE SHELIA [id number] SP [id number] MEDICAID [id number] SP [id number] P HEALTH CARE O [id number] S [id number] PENDING GOVT INSURANCE [id number] SP [id number] MVP MCDO [id number] SP [id number] Managed Care - MVP P [id number] S [id number] Managed Care - MVP P [id number] S [id number] Medicaid S [id number] S [id number] SELF PAY ONLY [id number] SP [id number] MVP MEDICAID [id number] Jennifer [id number] MV MEDICAID PI PI MEDICAID M [id number] Self [id number] PRIVATE PAY [id number] SELF PAY O [id number] S [id number] SELF PAY ONLY UNAVAILABLE SP UNAV AILABLE Results ID Date Data Source [id number] 10/14/2020 01:49:00 PM EST [facility] Name Value Range Interpretation Code Description Data Carolyn rce(s) Supporting Document(s) SARS coronavirus 2 RNA [Presence] in Res piratory specimen by JENNIFER with probe detection [facility] This lab was ordered by [facility] a nd reported by [facility]. ID Date Data Source [id number] 01/25/2020 08:46:00 AM EDT [facility] Name Value Range Interpretation Code Description Data Carolyn rce(s) Supporting Document(s) SARS CORONAVIRUS 2 RNA [facility] This lab was ordered by [facility] and reported by [facility]. Procedure
[2020-12-17] MEDS ORDERED: IBUP-1425 PO (22:50)
[2020-12-17] MEDS ORDERED: ACET-838 PO (22:50)
[2020-12-17 22:59] LABS: BASO % 0.3 % (0.0-1.0); EOS % 0.3 % (0.0-3.0); HEMATOCRIT 39.4 % (36.0-47.0); HEMOGLOBIN 13.2 g/dl (12.0-15.5); LYMPH # 1.7 10^3/uL (1.5-5.0); LYMPH % 14.7 % (24.0-44.0); MEAN CORPUSCULAR HEMOGLOBIN 30.7 pg (27.0-33.0); MEAN CORPUSCULAR HGB CONC 33.5 g/dl (32.0-36.5); MEAN CORPUSCULAR VOLUME 91.6 fl (80.0-96.0); MONO # 0.8 10^3/uL (0.0-0.8); MONO % 6.8 % (2.0-8.0); NEUTROPHILS % 77.5 % (36.0-66.0); PLATELET COUNT, AUTOMATED 282 10^3/uL (150-450); WHITE BLOOD COUNT 11.5 10^3/uL (4.0-10.0)
[2020-12-17 23:11] LABS: INR 1.01; PROTHROMBIN TIME 13.5 SECONDS (12.5-14.3)
[2020-12-17 23:12] LABS: PARTIAL THROMBOPLASTIN TIME 30.9 SECONDS (24.2-38.5)
--- OUTSIDE RECORDS SUMMARY | 2020-12-17 23:16 | CCD ---
Author Author [facility] Organization [facility] Address Unknown Phone Unavailable Care Team Providers Care Knitted Cloth Examiner Name Role Phone Jose Juan Phipps MD [...] Jose Juan Phipps MD Unavailable Unavailable Jose Juna Phipps MD Unavailable Unavailable Jose Juan Phipps [...] ALVAREZ MD Unavailable Unavailable KIM, T DIONNE MD Unavailable Unavailable KIM, T DIONNE MD Unavailable Unavailable KIM, T DIONNE MD Unavailable Unavailable KIM, T DIONNE MD Unavailable Unavailable KIM, T DIONNE MD Unavailable Unavailable KIM, T DINONE MD Unavailable Unavailable KIM, T DOINNE MD Unavailable Unavailable KIM, T DIONNE MD [...] is protected by Article 27-F of the [facility] Public Health law. If you continue you may have access to information: Regarding HIV / AIDS; Provided by facilities licensed or operated by the [facility] Office of Mental Health; or Provided by the [facility] Office for People With Developmental Disabilities. If such information is present, then the following [facility] mandated warning applies: This information has been [...] law may result in a fine or longterm sentence or both. A general authorization for the release of medical or other information is NOT sufficient authorization for further disc losure. Encounters Encounter Providers Location Date Indications Data Source(s ) Outpatient Attender: Mynor Phipps MD FP 04/05/2020 11:19:01 AM EDT [facility] Outpatient Attender: Mynor Phipps MD FP 03/30/2020 07:58:33 PM EDT [facility] Outpatient Attender: Mynor Phipps MD FP 03/21/2020 12:02:32 AM EDT [facility] Outpatient Attender: Mynor Phipps MD FP 03/20/2020 12:18:01 AM EDT [facility] Outpatient Attender: Mynor Phipps MD FP 03/01/2020 09:05:00 AM EDT [facility] Outpatient Attender: Mynor Phipps MD FP 03/01/2020 08:05:00 AM EDT [facility] Outpatient 02/10/2020 06:56:00 AM EDT [facility] Outpatient Attender: Mynor Phipps MD FP 01/28/2020 01:45:01 PM EDT [facility] Outpatient Attender: DIONNE ALVAREZ MD 01/27/2020 09:00:00 A M EDT [facility] Insurance Providers Payer name Policy type / Coverage type Policy ID Covered libertarian ID Covered libertarian's relationship to diallo Policy Diallo Plan Information SELF PAY ONLY [id number] SP [id number] O UNAVAILABLE UNAVAILA BLE COVID19 HRSA UNINSURED FUND SP EMEDNY [id number] SP [id number] Self Pay P UNAVAILABLE S UNAVAILA BLE SHELIA [id number] SP [id number] MEDICAID [id number] SP [id number] MVP HEALTH CARE O [id number] S [id number] PENDING GOVT INSURANCE [id number] SP [id number] MVP MCDO [id number] SP [id number] Managed Care - MVP P [id number] S [id number] Managed Care - MVP P [id number] S [id number] Medicaid S [id number] S [id number] SELF PAY ONLY [id number] SP [id number] MVP MEDICAID [id number] Jennifer [id number] MVP MEDICAID PI PI MEDICAID M [id number] Self [id number] PRIVATE PAY [id number] SELF PAY O [id number] S [id number] SELF PAY ONLY UNAVAILABLE SP UNAV AILABLE Results ID Date Data Source [id number] 10/14/2020 01:49:00 PM EST [facility] Name Value Range Interpretation Code Description Data Carolyn rce(s) Supporting Document(s) SARS coronavirus 2 RNA [Presence] in Res piratory specimen by JENNIFER with probe detection [facility] This lab was ordered by [facility] a nd reported by [facility]. ID Date Data Source [id number] 01/25/2020 08:46:00 AM EDT [facility] Name Value Range Interpretation Code Description Data Carolyn rce(s) Supporting Document(s) SARS CORONAVIRUS 2 RNA [facility] This lab was ordered by [facility] and reported by [facility]. Procedure
[2020-12-17 23:20] LABS: RSV AMPLIFICATION NEGATIVE (NEGATIVE)
[2020-12-17 23:21] LABS: ALBUMIN 3.5 GM/DL (3.2-5.2); ALT/SGPT 99 U/L (12-78); BILIRUBIN,DIRECT 0.2 MG/DL (0.0-0.2); BILIRUBIN,TOTAL 0.3 MG/DL (0.2-1.0); BLOOD UREA NITROGEN 16 MG/DL (7-18); CALCIUM LEVEL 8.2 MG/DL (8.5-10.1); CARBON DIOXIDE LEVEL 27 MEQ/L (21-32); CHLORIDE LEVEL 103 MEQ/L (98-107); GLOMERULAR FILTRATION RATE > 60.0 (>58); GLUCOSE, FASTING 74 MG/DL (70-100); POTASSIUM SERUM 3.6 MEQ/L (3.5-5.1); SODIUM LEVEL 137 MEQ/L (136-145)
[2020-12-17] MEDS ORDERED: CLINDAMYCIN 900 MG in IV 1 EA IV ONE (23:25)
[2020-12-17] MEDS ORDERED: MAALOX 30 ML SUSP *UDC PO PRN (23:35)
[2020-12-17] MEDS ORDERED: MOM 30ML SUSPENSION UDC PO PRN (23:35)
--- NOTE | 2020-12-17 23:36 | HPEPDOC ---
[facility] Medical History & Physical Date of Admission Dec 17, 2020 Date of Service: Dec 17, 2020 Attending Physician: LUIZ VARELA MD History and Physical TIME OF SERVICE: 1135pm CHIEF COMPLAINT: pain HISTORY OF PRESENT ILLNESS: This 40 yr old F presented w c/o of 10/10 in severity L buttock pain and swelling for 2 days with fluid draining out of the area. She denied having n/v/f/c. She has been controlling the pain with heroin. She admits to practicing anal intercourse and agreed to STI testing. REVIEW OF SYSTEMS: 12-point review of systems negative except as listed in HPI PAST MEDICAL/ SURGICAL HISTORY: Gallbladder CA Cholecystectomy CVA in the setting of substance abuse Hx of Pancreatitis Hx of facial cellulitis Hep C Tubal ligation x2 R knee surgery Appendectomy SOCIAL HISTORY: She smokes, denies drinking alcohol but per chart review she has a hx of alcohol abuse, recently used meth and heroin via IV & has a hx of ecstasy use. FAMILY HISTORY: DM, breast cancer ALLERGIES: Please see below. HOME MEDICATIONS: Please see below. PHYSICAL EXAMINATION: VITAL SIGNS: Please see below. GENERAL APPEARANCE: cachectic /in pain HEENT: mask covering lower face CARDIOVASCULAR: RRR/NMRG LUNGS: CTAB on RA ABDOMEN: flat MUSCULOSKELETAL: KHRIS x 4 INTEGUMENT: red raised lesion on right gluteus that is draining some purulent fluid NEUROLOGICAL: CN 2-12 grossly intact /speech not dysarthric PSYCHIATRIC: A&ox 3 /able to understand and follow all commands LABORATORY DATA: 12/17/20 22:01 12/17/20 22:46 12/17/20 22:01: Immature Granulocyte % (Auto) 0.4, Neutrophils (%) (Auto) 77.5H, Lymphocytes (%) (Auto) 14.7L, Monocytes (%) (Auto) 6.8, Eosinophils (%) (Auto) 0.3, Basophils (%) (Auto) 0.3, Neutrophils # (Auto) 9.0H, Lymphocytes # (Auto) 1.7, Monocytes # (Auto) 0.8, Eosinophils # (Auto) 0.0, Basophils # (Auto) 0.0, Nucleated Red Blood Cells % (auto) 0.0 12/17/20 22:35: Coronavirus (COVID-19)(PCR) NEGATIVE, Influenza Type A (RT-PCR) NEGATIVE, Influenza Type B (RT-PCR) NEGATIVE, Respiratory Syncytial Virus (PCR) NEGATIVE 12/17/20 22:44: Lactic Acid Level 1.1 12/17/20 22:46: Prothrombin Time 13.5, Prothromb Time International Ratio 1.01, Activated Partial Thromboplast Time 30.9, Anion Gap 7L, Glomerular Filtration Rate > 60.0, Calcium Level 8.2L, Total Bilirubin 0.3, Direct Bilirubin 0.2, Aspartate Amino Transf (AST/SGOT) 123H, Alanine Aminotransferase (ALT/SGPT) 99H, Alkaline Phosphatase 110, Total Protein 8.0, Albumin 3.5, Albumin/Globulin Ratio 0.8L IMAGING: CT abd/pelvis IMPRESSION: 1. Diffuse infiltration of the subcutaneous tissue in the right buttock. Consistent with cellulitis and phlegmon. 2. No rim enhancing collection is identified. MICROBIOLOGY: Respiratory panel neg / blood cx pending ASSESSMENT: is a 40 yr old w a hx of polysubstance abuse, CVA, gallbladder cancer, pancreatitis, Hep C and who will be admitted for management of gluteal cellulitis. PLAN: 1 Right gluteal cellulitis She doesnt meet SIRS criteria Plan: admit to medical floor / toradol for pain/ c/w clindamycin & IVF 2 Polysubstance Abuse Plan: smoking cessation education / nicotine patch / CIWA protocol / f/u STI panel, Hep panel and HIV 3 Protein Calorie malnutrition BMI 16.1 DVT px w SCDs Dispo: home after at least 2 midnights stay Home Medications Scheduled PRN Acetaminophen (Acetaminophen) 325 Mg Tablet, 650 MG PO Q6H PRN for PAIN Ibuprofen (Ibuprofen) 200 Mg Tablet, 600 MG PO Q6H PRN for PAIN Allergies Coded Allergies: No Known Allergies (Unverified , 07/27/17) A-FIB/CHADSVASC A-FIB History Current/History of A-Fib/PAF?: No Current PO Anticoag Therapy: No LUIZ VARELA MD Dec 17, 2020 23:36
[2020-12-17] MEDS ORDERED: ISOVUE-370 76% 100ML VIAL As Ordered ONE (23:40)
[2020-12-17] MEDS ORDERED: MORPHINE 2 MG/ML 1ML VIAL (J2270) IV ONE (23:45)
[2020-12-17] MEDS ORDERED: MORPHINE 2 MG/ML 1ML VIAL (J2270) As Ordered ONE (23:49)
--- OUTSIDE RECORDS SUMMARY | 2020-12-18 00:01 | CCD ---
Author Author [facility] Organization [facility] Address Unknown Phone Unavailable Care Team Providers Care Core Filer Name Role Phone Jose Juan Phipps MD [...] Unavailable Jose Juan Phipps MD Unavailable Unavailable Joes Juan Phipps MD Unavailable Unavailable Jose Juan [...] is protected by Article 27-F of the [facility] Public Health law. If you continue you may have access to information: Regarding HIV / AIDS; Provided by facilities licensed or operated by the [facility] Office of Mental Health; or Provided by the [facility] Office for People With Developmental Disabilities. If such information is present, then the following [facility] mandated warning applies: This information has been [...] law may result in a fine or skilled nursing sentence or both. A general authorization for the release of medical or other information is NOT sufficient authorization for further disc losure. Encounters Encounter Providers Location Date Indications Data Source(s ) Outpatient Attender: Mynor Phipps MD FP 04/05/2020 11:19:01 AM EDT [facility] Outpatient Attender: Mynor Phipps MD FP 03/30/2020 07:58:33 PM EDT [facility] Outpatient Attender: Mynor Phipps MD FP 03/21/2020 12:02:32 AM EDT [facility] Outpatient Attender: Mynor Phipps MD FP 03/20/2020 12:18:01 AM EDT [facility] Outpatient Attender: Mynor Phipps MD FP 03/01/2020 09:05:00 AM EDT [facility] Outpatient Attender: Mynor Phipps MD FP 03/01/2020 08:05:00 AM EDT [facility] Outpatient 02/10/2020 06:56:00 AM EDT [facility] Outpatient Attender: Mynor Phipps MD FP 01/28/2020 01:45:01 PM EDT [facility] Outpatient Attender: DIONNE ALVAREZ MD 01/27/2020 09:00:00 A M EDT [facility] Insurance Providers Payer name Policy type / Coverage type Policy ID Covered green party ID Covered green party's relationship to diallo Policy Diallo Plan Information SELF PAY ONLY [id number] SP [id number] UNAVAILABLE UNAVAILA BLE COVID19 HRSA UNINSURED FUND SP EMEDNY [id number] SP [id number] Self Pay P UNAVAILABLE S UNAVAILA BLE SHELIA [id number] SP [id number] MEDICAID [id number] SP [id number] [employer] HE[employer] CARE O [id number] S [id number] PENDING GOVT INSURANCE [id number] SP [id number] MVP MCDO [id number] SP [id number] Managed Care - MVP P [id number] S [id number] Managed Care - MVP P [id number] S [id number] Medicaid S [id number] S [id number] SELF PAY ONLY [id number] SP [id number] MVP MEDICAID [id number] Jennifer [id number] MVP MEDICAID PI PI MEDICAID M [id number] Self [id number] PRIVATE PAY [id number] 18 [id number] SELF PAY O [id number] S [id number] SELF PAY ONLY UNAVAILABLE SP UNAV AILABLE Results ID Date Data Source [id number] 10/14/2020 01:49:00 PM EST [facility] Name Value Range Interpretation Code Description Data Carolyn rce(s) Supporting Document(s) SARS coronavirus 2 RNA [Presence] in Res piratory specimen by JENNIFER with probe detection [facility] This lab was ordered by [facility] a nd reported by [facility]. ID Date Data Source [id number] 01/25/2020 08:46:00 AM EDT [facility] Name Value Range Interpretation Code Description Data Carolyn rce(s) Supporting Document(s) SARS CORONAVIRUS 2 RNA [facility] This lab was ordered by [facility] and reported by [facility]. Procedure
[2020-12-18] MEDS: NS 1,000 ML IV SCH ×2 (00:04→10:18)
--- NOTE | 2020-12-18 00:26 | REPVR ---
PROCEDURE INFORMATION: Exam: CT Pelvis With Contrast Exam date and time: 12/17/2020 11:26 PM Age: 40 years old Clinical indication: Cellulitis; Buttock; Additional info: Large abscess left buttocks TECHNIQUE: Imaging protocol: Computed tomography images of the pelvis with intravenous contrast. Radiation optimization: All CT scans at this facility use at least one of these dose optimization techniques: automated exposure control; mA and/or kV adjustment per patient size (includes targeted exams where dose is matched to clinical indication); or iterative reconstruction. Contrast material: ISO; Contrast volume: 75 ml; Contrast route: INTRAVENOUS (IV); COMPARISON: CT ABD/PEL W/IV CONTRAST ONLY 06/06/2019 9:14 AM FINDINGS: Stomach and bowel: Severe stool in the colon. No abnormal bowel dilatation. No abnormal bowel wall thickening. Appendix: The appendix is not seen. However, there is no evidence of appendicitis. Intraperitoneal space: Unremarkable. No free air. No significant fluid collection. Vasculature: Multiple phleboliths in the pelvis. Lymph nodes: Unremarkable. No enlarged lymph nodes. Urinary bladder: Normal. No mass. Reproductive: Uterus is normal. Bones/joints: Unremarkable. No acute fracture. No dislocation. Soft tissues: Diffuse infiltration of the subcutaneous tissue in the right buttock. No rim enhancing collection is identified. No soft tissue gas. Infiltration extends to the right gluteus marley muscle. No collection seen within the muscle. IMPRESSION: 1. Diffuse infiltration of the subcutaneous tissue in the right buttock. Consistent with cellulitis and phlegmon. 2. No rim enhancing collection is identified. Electronically signed by: Miquel Zhang On 12/18/2020 00:26:56 AM
[2020-12-18 00:34] LABS: HEPATITIS B SURFACE ANTIGEN NEGATIVE (NEGATIVE)
[2020-12-18 01:02] LABS: HEPATITIS B CORE ANTIBODY IGM NEGATIVE (NEGATIVE); HIV 1&2 SCREEN CENTAUR NEGATIVE (NEGATIVE)
[2020-12-18 01:03] LABS: HEPATITIS A ANTIBODY IGM NEGATIVE (NEGATIVE)
[2020-12-18 01:18] LABS: HEPATITIS C VIRUS ABY INDEX > 11.0 INDEX (<0.8)
[2020-12-18 01:32] VITALS: BP 118/73
[2020-12-18] MEDS ORDERED: MORPHINE 2 MG/ML 1ML VIAL (J2270) IV PRN (02:20)
[2020-12-18] MEDS: ACETAMINOPHEN TAB 650MG DOSE (2X325MG) PO PRN ×2 (02:33→17:38)
[2020-12-18 03:46] LABS: AMPHETAMINES LEVEL URINE POSITIVE (NEGATIVE); BARBITURATES URINE NEGATIVE (NEGATIVE); BENZODIAZEPINES URINE NEGATIVE (NEGATIVE); CANNABINOIDS URINE NEGATIVE (NEGATIVE); COCAINE METABOLITE URINE NEGATIVE (NEGATIVE); METHADONE URINE NEGATIVE (NEGATIVE); OPIATES URINE POSITIVE (NEGATIVE); PHENCYCLIDINE URINE NEGATIVE (NEGATIVE)
[2020-12-18 05:00] LABS: CHLAMYDIA DNA AMPLIFICATION NEGATIVE (NEGATIVE); GC DNA AMPLIFICATION NEGATIVE (NEGATIVE)
[2020-12-18] MEDS ORDERED: LORazepam 2 MG TAB PO PRN (05:10)
[2020-12-18 06:00] VITALS: BP 107/56
[2020-12-18] MEDS: THIAMINE 100 MG TAB PO SCH ×2 (06:32→20:04)
[2020-12-18] MEDS: KETOROLAC 30 MG/ML 1ML VIAL IV SCH ×2 (06:33→12:25)
[2020-12-18 06:54] LABS: HEMOGLOBIN 11.8 g/dl (12.0-15.5); MEAN CORPUSCULAR HGB CONC 33.7 g/dl (32.0-36.5); MEAN CORPUSCULAR VOLUME 91.9 fl (80.0-96.0); PLATELET COUNT, AUTOMATED 251 10^3/uL (150-450); RED BLOOD COUNT 3.81 10^6/uL (4.00-5.40); WHITE BLOOD COUNT 12.2 10^3/uL (4.0-10.0)
[2020-12-18 07:16] LABS: BLOOD UREA NITROGEN 12 MG/DL (7-18); CALCIUM LEVEL 8.1 MG/DL (8.5-10.1); CARBON DIOXIDE LEVEL 24 MEQ/L (21-32); CHLORIDE LEVEL 108 MEQ/L (98-107); CREATININE FOR GFR 0.75 MG/DL (0.55-1.30); GLOMERULAR FILTRATION RATE > 60.0 (>58); GLUCOSE, FASTING 80 MG/DL (70-100); POTASSIUM SERUM 3.8 MEQ/L (3.5-5.1); SODIUM LEVEL 137 MEQ/L (136-145)
[2020-12-18] MEDS: MULTIVITAMINS/MINERALS THERAP 1 TAB PO SCH (08:56)
[2020-12-18] MEDS: CLINDAMYCIN 600 MG in IV 1 EA IV SCH ×3 (08:56→23:15)
[2020-12-18] MEDS: FOLIC ACID 1 MG TAB PO SCH (08:56)
[2020-12-18] MEDS: metroNIDAZOLE (FLAGYL) 500MG TABLET PO SCH ×2 (10:18→20:04)
[2020-12-18 14:00] VITALS: BP 108/60
--- NOTE | 2020-12-18 16:16 | IPNPDOC ---
Date Seen The patient was seen on 12/18/20. Progress Note SUBJECTIVE: Draining purulent material from open wound excessively, wound culture ordered. Discussed with surgery, recommended hot compresses QID. Will outline erythema to see how improves over next several days. BCx pending. + T. Vaginalis, metronidazole started. + chills, fevers overnight. OBJECTIVE: PHYSICAL EXAMINATION: VITAL SIGNS: Please see below. GENERAL APPEARANCE: NAD, resting in bed, AAOx3 HEENT: AT/NC,PERRLA, EOM intact CARDIOVASCULAR: RRR/NMRG LUNGS: CTAB on RA ABDOMEN: flat MUSCULOSKELETAL: KHRIS x 4 INTEGUMENT: red raised lesion on left gluteus that is draining purulent fluid, extensive erythema surrounding this lesion, tenderness to palpation NEUROLOGICAL: CN 2-12 grossly intact /speech not dysarthric PSYCHIATRIC: A&ox 3 /able to understand and follow all commands LABORATORY DATA: Please see below IMAGING: CT abd/pelvis: 1. Diffuse infiltration of the subcutaneous tissue in the right buttock. Consistent with cellulitis and phlegmon. 2. No rim enhancing collection is identified. MICROBIOLOGY: Respiratory panel neg Blood cx: pending x 2 sets Wound culture ordered T. vaginalis positive ASSESSMENT: Ms. Macario is a 40 yr old w a Hx of polysubstance abuse, CVA, gallbladder cancer, pancreatitis, Hep C and who will be admitted for management of gluteal cellulitis. PLAN: Right gluteal cellulitis -Extensive, draining, WBC 12.2, febrile overnight. -Discussed CT with surgery, recommended hot compresses QID -Ordering wound culture, MRSA -C/w pain control, IV clindamycin Polysubstance Abuse (nicotine, amphetamines, opiates) -UDS + for ampetamines, opiates -nicotine patch -Watch for s/s of withdrawl T. vaginalis infection -Started on metronidazole BID x 7 days DVT px -Lovenox DISPOSITION: VS, I&O, 24H, Fishbone Vital Signs/I&O Vital Signs Date Time Temp Pulse Resp B/P (MAP) Pulse Ox O2 Delivery O2 Flow Rate FiO2 12/18/20 06:00 97.9 69 20 107/56 (73) 98 Room Air I&O- Last 24 Hours up to 6 AM 12/18/20 05:59 Intake Total 50 ml Output Total 150 ml Balance -100 ml Laboratory Data 24H LABS Laboratory Tests 2 12/17/20 22:01: Immature Granulocyte % (Auto) 0.4, Neutrophils (%) (Auto) 77.5H, Lymphocytes (%) (Auto) 14.7L, Monocytes (%) (Auto) 6.8, Eosinophils (%) (Auto) 0.3, Basophils (%) (Auto) 0.3, Neutrophils # (Auto) 9.0H, Lymphocytes # (Auto) 1.7, Monocytes # (Auto) 0.8, Eosinophils # (Auto) 0.0, Basophils # (Auto) 0.0, Nucleated Red Blood Cells % (auto) 0.0 12/17/20 22:35: Coronavirus (COVID-19)(PCR) NEGATIVE, Influenza Type A (RT-PCR) NEGATIVE, Influenza Type B (RT-PCR) NEGATIVE, Respiratory Syncytial Virus (PCR) NEGATIVE 12/17/20 22:44: Lactic Acid Level 1.1 12/17/20 22:46: Prothrombin Time 13.5, Prothromb Time International Ratio 1.01, Activated Partial Thromboplast Time 30.9, Anion Gap 7L, Glomerular Filtration Rate > 60.0, Calcium Level 8.2L, Total Bilirubin 0.3, Direct Bilirubin 0.2, Aspartate Amino Transf (AST/SGOT) 123H, Alanine Aminotransferase (ALT/SGPT) 99H, Alkaline Phosphatase 110, Total Protein 8.0, Albumin 3.5, Albumin/Globulin Ratio 0.8L, Hepatitis A IgM Antibody NEGATIVE, Hepatitis B Surface Antigen NEGATIVE, Hepatitis B Core IgM Antibody NEGATIVE, Hepatitis C Antibody Index > 11.0H, HIV Antigen/Antibody Combo Qual NEGATIVE 12/18/20 03:02: Urine Opiates Screen POSITIVEH, Urine Methadone Screen NEGATIVE, Urine Barbiturates Screen NEGATIVE, Urine Phencyclidine Screen NEGATIVE, Urine Amphetamines Screen POSITIVEH, Urine Benzodiazepines Screen NEGATIVE, Urine Cocaine Metabolite Screen NEGATIVE, Urine Cannabinoids Screen NEGATIVE, Chlamydia trachomatis DNA (JENNIFER) NEGATIVE, Neisseria gonorrhoeae DNA (JENNIFER) NEGATIVE, Trichomonas vaginalis (PCR) POSITIVEH 12/18/20 06:25: Nucleated Red Blood Cells % (auto) 0.0, Anion Gap 5L, Glomerular Filtration Rate > 60.0, Calcium Level 8.1L CBC/BMP Laboratory Tests 12/17/20 22:01 12/17/20 22:46 12/18/20 06:25 Microbiology Microbiology 12/17/20 Blood Culture, Received Pending 12/17/20 Blood Culture, Received Pending Current Medications Current Medications Medications (Trade) Dose Ordered Sig/Maribel Route PRN Reason Start Time Stop Time Status Last Admin Dose Admin Acetaminophen (Tylenol Tab) 650 mg Q4H PRN PO PAIN OR FEVER 12/17/20 23:35 12/18/20 02:33 Al Hydrox/Mg Hydrox/Simethicone (Mylanta) 30 ml DAILY PRN PO DYSPEPSIA 12/17/20 23:35 Clindamycin Phosphate 600 mg/ IV Miscellaneous Supplies 50 ml @ 100 mls/hr Q8H IV 12/18/20 08:00 12/18/20 08:56 Folic Acid (Folic Acid) 1 mg DAILY PO 12/18/20 09:00 12/18/20 08:56 Home Med (Med Rec Complete!) ASDIRECTED XX 12/17/20 22:50 12/17/20 22:51 DC Ketorolac Tromethamine (ToRADol) 15 mg Q6H IV 12/18/20 06:00 12/23/20 05:59 12/18/20 12:25 Lorazepam (Ativan) 2 mg ASDIRECTED PRN PO SEE PROTOCOL 12/18/20 05:10 Magnesium Hydroxide (Milk Of Magnesia) 30 ml DAILY PRN PO CONSTIPATION 12/17/20 23:35 Metronidazole (Flagyl) 500 mg BID PO 12/18/20 09:00 12/26/20 06:00 12/18/20 10:18 Morphine Sulfate (Morphine Sulfate Inj) 1 mg Q2H PRN IV BREAKTHROUGH PAIN 12/18/20 02:20 12/18/20 05:05 DC 12/18/20 02:57 Multivitamins (Theragram-M) 1 tab DAILY PO 12/18/20 09:00 12/18/20 08:56 Sodium Chloride 1,000 ml @ 100 mls/hr Q10H IV 12/17/20 23:31 12/18/20 10:18 Thiamine HCl (Thiamine HCl) 100 mg BID PO 12/18/20 05:13 12/20/20 21:01 12/18/20 06:32 Allergies Coded Allergies: No Known Allergies (Unverified , 07/27/17) Susana López MD Dec 18, 2020 16:16
[2020-12-18] MEDS: traMADol 50 MG TAB PO PRN (17:39)
[2020-12-18 19:59] VITALS: BP 110/63
[2020-12-18] MEDS: ENOXAPARIN 40MG/0.4ML SYRINGE (J1650 PER 10MG) SC SCH (20:04)
[2020-12-18] MEDS: KETOROLAC 30 MG/ML 1ML VIAL IV PRN (20:06)
[2020-12-18 22:00] VITALS: BP 94/53
[2020-12-18 23:18] VITALS: BP 96/65
[2020-12-18] MEDS ORDERED: NS 500 ML IV ONE (23:40)
[2020-12-19 02:07] VITALS: BP 97/65
[2020-12-19] MEDS: NS 1,000 ML IV SCH ×2 (02:24→16:01)
[2020-12-19 06:00] VITALS: BP 100/51
[2020-12-19] MEDS: KETOROLAC 30 MG/ML 1ML VIAL IV PRN ×2 (06:27→18:12)
[2020-12-19 07:02] LABS: HEMATOCRIT 32.8 % (36.0-47.0); MEAN CORPUSCULAR HEMOGLOBIN 30.8 pg (27.0-33.0); MEAN CORPUSCULAR HGB CONC 33.5 g/dl (32.0-36.5); MEAN CORPUSCULAR VOLUME 91.9 fl (80.0-96.0); PLATELET COUNT, AUTOMATED 230 10^3/uL (150-450); RED BLOOD COUNT 3.57 10^6/uL (4.00-5.40); WHITE BLOOD COUNT 5.8 10^3/uL (4.0-10.0)
[2020-12-19 07:40] LABS: ALBUMIN 2.3 GM/DL (3.2-5.2); ALT/SGPT 59 U/L (12-78); BILIRUBIN,TOTAL 0.1 MG/DL (0.2-1.0); BLOOD UREA NITROGEN 11 MG/DL (7-18); CALCIUM LEVEL 7.7 MG/DL (8.5-10.1); CARBON DIOXIDE LEVEL 24 MEQ/L (21-32); CHLORIDE LEVEL 112 MEQ/L (98-107); GLOMERULAR FILTRATION RATE > 60.0 (>58); GLUCOSE, FASTING 90 MG/DL (70-100); SODIUM LEVEL 142 MEQ/L (136-145); TOTAL PROTEIN 5.4 GM/DL (6.4-8.2)
[2020-12-19] MEDS: metroNIDAZOLE (FLAGYL) 500MG TABLET PO SCH ×2 (08:44→22:13)
[2020-12-19] MEDS: FOLIC ACID 1 MG TAB PO SCH (08:44)
[2020-12-19] MEDS: MULTIVITAMINS/MINERALS THERAP 1 TAB PO SCH (08:44)
[2020-12-19] MEDS: THIAMINE 100 MG TAB PO SCH ×2 (08:44→22:13)
[2020-12-19] MEDS: CLINDAMYCIN 600 MG in IV 1 EA IV SCH ×3 (08:44→23:06)
[2020-12-19] MEDS ORDERED: INFLUENZA QUADRIVALENT PF VACCINE 0.5ML SYRINGE IM ONE (09:00)
--- NOTE | 2020-12-19 11:42 | IPNPDOC ---
Date Seen The patient was seen on 12/19/20. Progress Note SUBJECTIVE: Lesion on left gluteus still draining, decreased erythema today, still very tender. MRSA +, wound culture pending. Febrile overnight at 101.2, + chills, fevers. OBJECTIVE: PHYSICAL EXAMINATION: VITAL SIGNS: Please see below. GENERAL APPEARANCE: NAD, resting in bed, AAOx3 HEENT: AT/NC,PERRLA, EOM intact CARDIOVASCULAR: RRR/NMRG LUNGS: CTAB on RA ABDOMEN: flat MUSCULOSKELETAL: KHRIS x 4 INTEGUMENT: red raised lesion on left gluteus that is draining purulent fluid, extensive erythema surrounding this lesion improving slowly, tenderness to palpation still present NEUROLOGICAL: CN 2-12 grossly intact /speech not dysarthric PSYCHIATRIC: A&ox 3 /able to understand and follow all commands LABORATORY DATA: Please see below IMAGING: CT abd/pelvis: 1. Diffuse infiltration of the subcutaneous tissue in the right buttock. Consistent with cellulitis and phlegmon. 2. No rim enhancing collection is identified. MICROBIOLOGY: Respiratory panel neg Blood cx x 2 sets : NG at 24 hrs Wound culture pending T. vaginalis positive MRSA + ASSESSMENT: Ms. Macario is a 40 yr old w a Hx of polysubstance abuse, CVA, gallbladder cancer, pancreatitis, Hep C and who will be admitted for management of gluteal cellulitis. PLAN: Right gluteal cellulitis -Extensive, draining, WBC 5.8, febrile overnight -F/u wound culture -MRSA + -C/w hot compresses QID, pain control, IV clindamycin Polysubstance Abuse (nicotine, amphetamines, opiates) -UDS + for ampetamines, opiates -nicotine patch -Watch for s/s of withdrawl Transaminitis -Improved on AM labs -Hx of Hep C -Continue to monitor T. vaginalis infection -Started on metronidazole BID x 7 days Tobacco use -Nicotine patch DVT px -Lovenox DISPOSITION: Improving slowly with IV abx. Plan is discharge home with im provement of medical condition. VS, I&O, 24H, Fishbone Vital Signs/I&O Vital Signs Date Time Temp Pulse Resp B/P (MAP) Pulse Ox O2 Delivery O2 Flow Rate FiO2 12/19/20 06:00 98.5 81 16 100/51 (67) 98 Room Air I&O- Last 24 Hours up to 6 AM 2/28/21 06:00 Intake Total 3610 ml Output Total 1675 ml Balance 1935 ml Laboratory Data 24H LABS Laboratory Tests 2 12/18/20 17:14: Methicillin-Resist S.aureus DNA PCR DETECTEDA 12/19/20 06:50: Nucleated Red Blood Cells % (auto) 0.0, Anion Gap 6L, Glomerular Filtration Rate > 60.0, Calcium Level 7.7L, Total Bilirubin 0.1#L, Aspartate Amino Transf (AST/SGOT) 69H, Alanine Aminotransferase (ALT/SGPT) 59, Alkaline Phosphatase 77, Total Protein 5.4#L, Albumin 2.3#L, Albumin/Globulin Ratio 0.7L CBC/BMP Laboratory Tests 12/19/20 06:50 Microbiology Microbiology 12/18/20 Wound Culture, Received Pending 12/17/20 Blood Culture - Preliminary, Resulted No growth after 24 hours . All specim... 12/17/20 Blood Culture - Preliminary, Resulted No growth after 24 hours . All specim... Current Medications Current Medications Medications (Trade) Dose Ordered Sig/Maribel Route PRN Reason Start Time Stop Time Status Last Admin Dose Admin Acetaminophen (Tylenol Tab) 650 mg Q4H PRN PO PAIN OR FEVER 12/17/20 23:35 12/18/20 17:38 Al Hydrox/Mg Hydrox/Simethicone (Mylanta) 30 ml DAILY PRN PO DYSPEPSIA 12/17/20 23:35 Clindamycin Phosphate 600 mg/ IV Miscellaneous Supplies 50 ml @ 100 mls/hr Q8H IV 12/18/20 08:00 12/19/20 08:44 Enoxaparin Sodium (Lovenox) 40 mg QHS SC 12/18/20 21:00 12/18/20 20:04 Folic Acid (Folic Acid) 1 mg DAILY PO 12/18/20 09:00 12/19/20 08:44 Home Med (Med Rec Complete!) ASDIRECTED XX 12/17/20 22:50 12/17/20 22:51 DC Ketorolac Tromethamine (ToRADol) 15 mg Q6H IV 12/18/20 06:00 12/18/20 16:15 DC 12/18/20 12:25 Ketorolac Tromethamine (ToRADol) 15 mg Q6HP PRN IV SEVERE PAIN (PS 8-10) 12/18/20 16:15 12/23/20 05:59 12/19/20 06:27 Lorazepam (Ativan) 2 mg ASDIRECTED PRN PO SEE PROTOCOL 12/18/20 05:10 Magnesium Hydroxide (Milk Of Magnesia) 30 ml DAILY PRN PO CONSTIPATION 12/17/20 23:35 Metronidazole (Flagyl) 500 mg BID PO 12/18/20 09:00 12/26/20 06:00 12/19/20 08:44 Morphine Sulfate (Morphine Sulfate Inj) 1 mg Q2H PRN IV BREAKTHROUGH PAIN 12/18/20 02:20 12/18/20 05:05 DC 12/18/20 02:57 Multivitamins (Theragram-M) 1 tab DAILY PO 12/18/20 09:00 12/19/20 08:44 Sodium Chloride 1,000 ml @ 80 mls/hr [id number] IV 12/19/20 02:15 12/20/20 03:14 12/19/20 02:24 Sodium Chloride 1,000 ml @ 100 mls/hr Q10H IV 12/17/20 23:31 12/18/20 16:11 DC 12/18/20 10:18 Thiamine HCl (Thiamine HCl) 100 mg BID PO 12/18/20 05:13 12/20/20 21:01 12/19/20 08:44 Tramadol HCl (Ultram) 50 mg Q6HP PRN PO MODERATE PAIN (PS 5-7) 12/18/20 16:15 12/18/20 17:39 Allergies Coded Allergies: No Known Allergies (Unverified , 07/27/17) Susana López MD Dec 19, 2020 11:42
[2020-12-19] MEDS: NICOTINE 21MG/24HR 1 EA TRANSDERMAL TD SCH (12:32)
[2020-12-19 14:00] VITALS: BP 128/79
[2020-12-19 22:00] VITALS: BP 118/79
[2020-12-19] MEDS: ENOXAPARIN 40MG/0.4ML SYRINGE (J1650 PER 10MG) SC SCH (22:13)
[2020-12-19] MEDS: traMADol 50 MG TAB PO PRN (23:07)
[2020-12-20] MEDS ORDERED: ONDANSETRON 4MG/2ML VIAL IV PRN (03:20)
[2020-12-20 06:00] VITALS: BP 119/78
[2020-12-20] MEDS: KETOROLAC 30 MG/ML 1ML VIAL IV PRN (06:16)
[2020-12-20 06:27] LABS: HEMATOCRIT 33.7 % (36.0-47.0); HEMOGLOBIN 11.2 g/dl (12.0-15.5); MEAN CORPUSCULAR HEMOGLOBIN 30.5 pg (27.0-33.0); MEAN CORPUSCULAR HGB CONC 33.2 g/dl (32.0-36.5); MEAN CORPUSCULAR VOLUME 91.8 fl (80.0-96.0); PLATELET COUNT, AUTOMATED 253 10^3/uL (150-450); RED BLOOD COUNT 3.67 10^6/uL (4.00-5.40); WHITE BLOOD COUNT 6.5 10^3/uL (4.0-10.0)
[2020-12-20 07:01] LABS: ALBUMIN 2.3 GM/DL (3.2-5.2); ALT/SGPT 58 U/L (12-78); BILIRUBIN,TOTAL 0.1 MG/DL (0.2-1.0); BLOOD UREA NITROGEN 7 MG/DL (7-18); CARBON DIOXIDE LEVEL 24 MEQ/L (21-32); CHLORIDE LEVEL 110 MEQ/L (98-107); CREATININE FOR GFR 0.52 MG/DL (0.55-1.30); GLOMERULAR FILTRATION RATE > 60.0 (>58); GLUCOSE, FASTING 88 MG/DL (70-100); POTASSIUM SERUM 4.2 MEQ/L (3.5-5.1); SODIUM LEVEL 140 MEQ/L (136-145); TOTAL PROTEIN 5.6 GM/DL (6.4-8.2)
[2020-12-20 08:00] VITALS: BP 112/73
[2020-12-20] MEDS ORDERED: LACTOBACILLUS ACIDOPHILUS CAP (BACID) PO SCH (08:00)
[2020-12-20] MEDS: CLINDAMYCIN 600 MG in IV 1 EA IV SCH (08:17)
[2020-12-20] MEDS: metroNIDAZOLE (FLAGYL) 500MG TABLET PO SCH (08:56)
[2020-12-20] MEDS: FOLIC ACID 1 MG TAB PO SCH (08:57)
[2020-12-20] MEDS: THIAMINE 100 MG TAB PO SCH (08:58)
[2020-12-20] MEDS: MULTIVITAMINS/MINERALS THERAP 1 TAB PO SCH (08:58)
[2020-12-20] MEDS: NICOTINE 21MG/24HR 1 EA TRANSDERMAL TD SCH (08:59)
[2020-12-20 12:00] VITALS: BP 113/73
[2020-12-20] MEDS ORDERED: LORazepam 2 MG TAB PO PRN (12:50)
[2020-12-20 13:15] VITALS: BP 112/73
[2020-12-20] MEDS ORDERED: CLIN150C15 PO (18:47)
[2020-12-20] MEDS ORDERED: METR375C3 PO (18:51)
[2020-12-20] MEDS ORDERED: PROB1CAP10 PO (18:51)
--- NOTE | 2020-12-20 18:53 | DS.PDOC ---
Discharge Summary General Date of Admission Dec 17, 2020 at 23:42 Date of Discharge 12/20/20 Attending Physician: Susana López MD Discharge Summary HISTORY OF PRESENT ILLNESS: This 40 yr old F presented w c/o of 10/10 in severity L buttock pain and swelling for 2 days with fluid draining out of the area. She denied having n/v/f/c. She has been controlling the pain with heroin. She admits to practicing anal intercourse and agreed to STI testing. HOSPITAL COURSE: Patient did not require invasive debridement of lesion, it spontaneously started draining. WBC improved on IV clindamycin but erythema was significant and persisted. Wound culture grew MRSA, sensitive to clindamycin. She also tested positive for T. vaginalis, metronidazole was started as well to complete for a total of 7 days. On 12/20/20 patient was seen and agreed to stay. She admitted she was growing increasingly anxious, stated to be withdrawing. She was also stating that she was frustrated with her and wanted to get aggressive with him due to him giving her an STD. She was advised to stay, given that her left gluteal infection still was requiring IV antibiotics and was actively draining purulent material. She agreed but then later insisted on leaving. In the afternoon she decided to leave AMA. 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 Risks of leaving were discussed with her in detail before her departure. PAST MEDICAL/ SURGICAL HISTORY: Gallbladder CA Cholecystectomy CVA in the setting of substance abuse Hx of Pancreatitis Hx of facial cellulitis Hep C Tubal ligation x2 R knee surgery Appendectomy SOCIAL HISTORY: She smokes, denies drinking alcohol but per chart review she has a hx of alcohol abuse, recently used meth and heroin via IV & has a hx of ecstasy use. FAMILY HISTORY: DM, breast cancer PHYSICAL EXAMINATION: VITAL SIGNS: Please see below. GENERAL APPEARANCE: NAD, resting in bed, AAOx3 HEENT: AT/NC,PERRLA, EOM intact CARDIOVASCULAR: RRR/NMRG LUNGS: CTAB on RA ABDOMEN: flat MUSCULOSKELETAL: KHRIS x 4 INTEGUMENT: red raised lesion on left gluteus that is draining purulent fluid, extensive erythema surrounding this lesion improving slowly, tenderness minimal NEUROLOGICAL: CN 2-12 grossly intact /speech not dysarthric PSYCHIATRIC: A&ox 3 /able to understand and follow all commands LABORATORY DATA: Please see below IMAGING: CT abd/pelvis: 1. Diffuse infiltration of the subcutaneous tissue in the right buttock. Consistent with cellulitis and phlegmon. 2. No rim enhancing collection is identified. MICROBIOLOGY: Respiratory panel neg Blood cx x 2 sets : NG at 24 hrs Wound culture: MRSA T. vaginalis positive MRSA + ASSESSMENT: Ms. Macario is a 40 yr old w a Hx of polysubstance abuse, CVA, gallbladder cancer, pancreatitis, Hep C and who will be admitted for management of gluteal cellulitis. LEft AMA on 12/20/20. DISCHARGE DIAGNOSES AT TIME OF LEAVING AMA: Right gluteal cellulitis, draining lesion 2/2 to MRSA Polysubstance Abuse (nicotine, amphetamines, opiates) with mild withdrawl Transaminitis T. vaginalis infection Tobacco use DISPOSITION: Left AMA today, abx sent to her pharmacy TIME SPENT ON DISCHARGE: 35 minutes. Vital Signs/I&Os Vital Signs Date Time Temp Pulse Resp B/P (MAP) Pulse Ox O2 Delivery O2 Flow Rate FiO2 12/20/20 13:15 67 112/73 12/20/20 12:00 97.3 18 97 Room Air I&O- Last 24 Hours up to 6 AM 12/20/20 06:00 Intake Total 2550 ml Output Total 1300 ml Balance 1250 ml Laboratory Data Labs 24H Laboratory Tests 2 12/20/20 06:09: Nucleated Red Blood Cells % (auto) 0.0, Anion Gap 6L, Glomerular Filtration Rate > 60.0, Calcium Level 8.0L, Total Bilirubin 0.1L, Aspartate Amino Transf (AST/SGOT) 67H, Alanine Aminotransferase (ALT/SGPT) 58, Alkaline Phosphatase 72, Total Protein 5.6L, Albumin 2.3L, Albumin/Globulin Ratio 0.7L CBC/BMP Laboratory Tests 12/20/20 06:09 Microbiology Microbiology 12/18/20 Wound Culture - Final, Complete Staph.aureus Methicillin Resis 12/17/20 Blood Culture - Preliminary, Resulted No Growth after 48 hours. All Specime... 12/17/20 Blood Culture - Preliminary, Resulted No Growth after 48 hours. All Specime... Discharge Medications Scheduled Clindamycin Hcl (Clindamycin HCl) 150 Mg Capsule, 300 MG PO QID Lactobacillus Acidophilus (Probiotic Acidophilus) 1.5 Mg Capsule, 1 CAP PO BIDWM Metronidazole (Metronidazole) 375 Mg Capsule, 375 MG PO BID Scheduled PRN Acetaminophen (Acetaminophen) 325 Mg Tablet, 650 MG PO Q6H PRN for PAIN, (Reported) Ibuprofen (Ibuprofen) 200 Mg Tablet, 600 MG PO Q6H PRN for PAIN, (Reported) Allergies Coded Allergies: No Known Allergies (Unverified , 07/27/17) Susana López MD Dec 20, 2020 18:53
== END 2020-12-20 13:54 | disposition left against medical advice (07) | DRG 383 ==
LOC: M ED 21:35 → M ED INP 23:42 → ENRESERV 12-18 00:08 → M MSPAV 12-18 01:31
PROVIDERS: ADMIT Internal Medicine; ATTEND Internal Medicine
DX: L03.317 Cellulitis of buttock (principal); F17.200 Nicotine dependence, unspecified, uncomplicated; N76.0 Acute vaginitis; Z85.09 Personal history of malignant neoplasm of other digestive organs; Z86.73 Personal history of transient ischemic attack (TIA), and cerebral infarction without residual deficits; B18.2 Chronic viral hepatitis C; Z79.899 Other long term (current) drug therapy; E46 Unspecified protein-calorie malnutrition; Z68.1 Body mass index [BMI] 19.9 or less, adult; F11.10 Opioid abuse, uncomplicated; F15.10 Other stimulant abuse, uncomplicated; B95.62 Methicillin resistant Staphylococcus aureus infection as the cause of diseases classified elsewhere

== ENCOUNTER 2021-03-02 06:26 | Inpatient (IN) | payer OTHER, SELFPAY ==
[~2021-03-02] VITALS: Ht 165.1 cm; Wt 57.7 kg
[~2021-03-02 06:26] MED LIST changes: +ACET32TAB PO; +CLIN150C15 PO; +IBUP-1425 PO; +METR375C3 PO; +PROB1CAP10 PO
[2021-03-02 07:06] LABS: VENOUS O2 SATURATION 79.9 % (60.0-80.0); VENOUS PARTIAL PRESSURE CO2 41.6 mmHg (38.0-50.0); VENOUS PARTIAL PRESSURE O2 43.2 mmHg (30.0-50.0); VENOUS PH 7.396 UNITS (7.330-7.430); VENOUS STANDARD HCO3 24.2 MEQ/L; VENOUS TOTAL CO2 26.2 MEQ/L (24.0-28.0)
[2021-03-02 07:11] LABS: HEMATOCRIT 36.2 % (36.0-47.0); HEMOGLOBIN 12.2 g/dl (12.0-15.5); MEAN CORPUSCULAR HGB CONC 33.7 g/dl (32.0-36.5); MEAN CORPUSCULAR VOLUME 92.1 fl (80.0-96.0); PLATELET COUNT, AUTOMATED 328 10^3/uL (150-450); RED BLOOD COUNT 3.93 10^6/uL (4.00-5.40)
[2021-03-02] MEDS ORDERED: VANCOMYCIN HCL 1,000 MG, VIAL MATE ADAPTER 1 EACH in NS 250 ML IV ONE (07:25)
[2021-03-02] MEDS ORDERED: NS 1,500 ML in IV 1 EA IV ONE (07:25)
[2021-03-02] MEDS ORDERED: PIPERACILLIN/TAZOBACTAM SOD 4.5 GM in D5W MINI-BAG PLUS 50 ML IV ONE (07:25)
[2021-03-02] MEDS ORDERED: ACETAMINOPHEN TAB 650MG DOSE (2X325MG) PO ONE (07:35)
[2021-03-02 07:37] LABS: ALBUMIN 2.6 GM/DL (3.2-5.2); ALT/SGPT 73 U/L (12-78); BILIRUBIN,DIRECT 0.2 MG/DL (0.0-0.2); BILIRUBIN,TOTAL 0.5 MG/DL (0.2-1.0); BLOOD UREA NITROGEN 10 MG/DL (7-18); CALCIUM LEVEL 8.5 MG/DL (8.5-10.1); CARBON DIOXIDE LEVEL 26 MEQ/L (21-32); CHLORIDE LEVEL 103 MEQ/L (98-107); CREATININE FOR GFR 0.77 MG/DL (0.55-1.30); GLOMERULAR FILTRATION RATE > 60.0 (>58); GLUCOSE, FASTING 87 MG/DL (70-100); POTASSIUM SERUM 4.4 MEQ/L (3.5-5.1); SODIUM LEVEL 135 MEQ/L (136-145); TOTAL PROTEIN 6.8 GM/DL (6.4-8.2); WHITE BLOOD COUNT 16.3 10^3/uL (4.0-10.0)
[2021-03-02] MEDS: HYDROMORPHONE HCL 0.5 MG/ 0.5 ML SYRINGE (J1170 PER 1) IV PRN ×2 (07:38→11:24)
[2021-03-02 07:40] LABS: ATYPICAL LYMPH 4 % (0-5); EOSINOPHILS 1 % (0-3); LYMPHOCYTES 13 % (16-44); METAMYELOCYTES 1 % (0-0); MONOCYTES 11 % (0-5); NEUTROPHILS 64 % (28-66)
[2021-03-02 07:41] LABS: ANISOCYTOSIS 1+; PLATELET ESTIMATE NORMAL (NORMAL)
[2021-03-02 07:45] LABS: ERYTHROCYTE SEDIMENTATION RATE 53 mm/hr (0-20)
--- NOTE | 2021-03-02 08:39 | REP ---
INDICATION: left hip ultrasound- suspect abscess COMPARISON: None TECHNIQUE: Real time mejia scale and color B-mode ultrasound examination using curved array transducer. FINDINGS: Directed ultrasound examination overlying the left hip and gluteal region demonstrates 2 similar complex collections with high density fluid material suggesting hematoma and or abscess. First collection measuring 6.7 x 5.4 x 2.9 cm is noted in the subcutaneous tissue over the medial hip while the 2nd collection measuring 3.4 x 4.7 x 3.1 cm is identified overlying the left gluteal region. IMPRESSION: 1. Two complex collections as noted above suggestive of hematoma versus abscesses <Electronically signed by Hans Yanes > 03/02/21 [id number]
[2021-03-02] MEDS ORDERED: IBUP200T45 PO (09:37)
[2021-03-02] MEDS ORDERED: VANCOMYCIN HCL 1,000 MG, VIAL MATE ADAPTER 1 EACH in NS 250 ML IV SCH (10:05)
--- NOTE | 2021-03-02 11:01 | HPEPDOC ---
[facility] Medical History & Physical Date of Admission March 02, 2021 Date of Service: March 02, 2021 History and Physical CHIEF COMPLAINT: LEFT HIP PAIN HISTORY OF PRESENT ILLNESS: 40 year old female with PMHx of substance abuse/ IVDA, presents for one week history of worsening left hip pain, with nausea. She states her last IV drug use was with "Aracely" about 5 days ago. She states she does not inject in her hip, only her arm. She denies any other illicit drug use. She denies chest pain, shortness of breath, abdominal pain, N/V/D. PAST MEDICAL HISTORY: #substance abuse/IV methamphetamines ALLERGIES: Please see below. REVIEW OF SYSTEMS: Negative except as per HPI. HOME MEDICATIONS: Please see below. PHYSICAL EXAMINATION: VITAL SIGNS: See below General; NAD, lying comfortably in bed HEENT: NC/AT, EOMI Lungs: CTA B/L Heart: +S1S2, RRR Abd: soft, NT, +BS Ext: no edema, large erythematous area left hip approx 8x8", no obvious drainage LABORATORY DATA: See below. IMAGING: MICROBIOLOGY: Please see below. A/P: 40 yo female for one week history of worsening left hip pain, found to have large abscess/hematoma, with PMHx IV drug use. #left hip abscess/hematoma - history of MRSA - continue vanco/zosyn day #1 - ortho c/s - MRI pending #substance abuse - monitor for withdrawal #medical non-compliance - previously left AMA - complicates care Vital Signs Vital Signs Date Time Temp Pulse Resp B/P (MAP) Pulse Ox O2 Delivery O2 Flow Rate FiO2 03/02/21 10:13 20 87/54 (65) 03/02/21 10:05 89 90 03/02/21 08:20 99.6 Laboratory Data Labs 24H Laboratory Tests 2 03/02/21 06:53: Neutrophils (%) (Auto) , Nucleated Red Blood Cells % (auto) 0.0, Neutrophils 64, Band Neutrophils 6, Lymphocytes (Manual) 13L, Monocytes (Manual) 11H, Eosinophils (Manual) 1, Metamyelocytes 1H, Atypical Lymphocytes 4, Anisocytosis 1+, Platelet Estimate NORMAL, Erythrocyte Sedimentation Rate 53H, Blood Gas Bi carbonate Standard 24.2, Venous Blood pH 7.396, Venous Blood Partial Pressure CO2 41.6, Venous Blood Partial Pressure O2 43.2, Venous Blood Total Carbon Dioxide 26.2, Venous Blood HCO3 25.0, Venous Blood Oxygen Saturation 79.9, Venous Blood Base Excess 0.0, Anion Gap 6L, Glomerular Filtration Rate > 60.0, Lactic Acid Level 1.1, Calcium Level 8.5, Total Bilirubin 0.5, Direct Bilirubin 0.2, Aspartate Amino Transf (AST/SGOT) 73H, Alanine Aminotransferase (ALT/SGPT) 73, Alkaline Phosphatase 114, C-Reactive Protein, Quantitative 8.50H, Total Protein 6.8, Albumin 2.6L, Albumin/Globulin Ratio 0.6L CBC/BMP Laboratory Tests 03/02/21 06:53 Microbiology Microbiology 03/02/21 Respiratory Virus Panel (PCR) (ASHLYN) - Final, Complete 03/02/21 Blood Culture, Received Pending 03/02/21 Blood Culture, Received Pending Home Medications Scheduled PRN Ibuprofen (Ibu-200) 200 Mg Tablet, 800 MG PO Q6H PRN for PAIN Allergies Coded Allergies: No Known Allergies (Unverified , 07/27/17) A-FIB/CHADSVASC A-FIB History Current/History of A-Fib/PAF?: No NADYA JO MD March 02, 2021 11:01
[2021-03-02] MEDS ORDERED: PROHANCE 279.3MG/ML 15ML VIAL As Ordered ONE (13:42)
[2021-03-02 14:44] VITALS: BP 114/52
--- NOTE | 2021-03-02 14:51 | REP ---
INDICATION: abscess/pain COMPARISON: Ultrasound today. TECHNIQUE: Multiple sequences obtained through the pelvis in the axial, coronal and sagittal planes prior to and following the intravenous administration of 11 cc ProHance. FINDINGS: The visualized osseous structures demonstrate normal bone marrow signal. There is no bone marrow edema or occult fracture. There is no abnormal bone marrow enhancement. In the left lateral pelvic superficial soft tissues diffuse edema is noted. There is associated ill-defined enhancement of these soft tissues compatible with cellulitis. There is a lobulated septated fluid collection with an irregularly enhancing wall in this region, which I suspect represents an abscess. This measures approximately 8.8 x 11.2 x 5.8 cm. There are few mildly enlarged left external iliac and inguinal lymph nodes. Visualized intrapelvic structures appear unremarkable. There is a dominant follicle of the left ovary 2.4 cm in diameter. IMPRESSION: Cellulitis left lateral pelvic soft tissues superficially. There is a lobulated septated fluid collection in that region with somewhat irregular thick-walled enhancement peripherally. I suspect this represents an abscess measuring 8.8 x 11.2 x 5.8 cm. <Electronically signed by Paul Marin > 03/02/21 [id number]
[2021-03-02] MEDS: PIPERACILLIN/TAZOBACTAM SOD 3.375 GM in D5W MINI-BAG PLUS 50 ML IV SCH ×2 (14:53→20:27)
[2021-03-02] MEDS: ACETAMINOPHEN TAB 650MG DOSE (2X325MG) PO PRN ×2 (14:56→21:24)
[2021-03-02] MEDS: PERCOCET 5MG/325MG TAB PO PRN ×2 (14:56→20:27)
[2021-03-02] MEDS: VANCOMYCIN HCL 750 MG, VIAL MATE ADAPTER 1 EACH in NS 250 ML IV SCH (16:44)
[2021-03-02 22:00] VITALS: BP 112/66
[2021-03-02] MEDS ORDERED: LEVEMIR (INSULIN DETEMIR) 1 UNITS/0.01ML SC ONE (22:50)
[2021-03-03] VITALS (8 sets, daily range): BP systolic 88–109; BP diastolic 44–73
[2021-03-03] MEDS: VANCOMYCIN HCL 750 MG, VIAL MATE ADAPTER 1 EACH in NS 250 ML IV SCH (00:09)
[2021-03-03] MEDS: PIPERACILLIN/TAZOBACTAM SOD 3.375 GM in D5W MINI-BAG PLUS 50 ML IV SCH ×4 (01:54→21:19)
[2021-03-03] MEDS: PERCOCET 5MG/325MG TAB PO PRN ×2 (03:22→11:22)
[2021-03-03] MEDS: ACETAMINOPHEN TAB 650MG DOSE (2X325MG) PO PRN (03:32)
[2021-03-03 07:35] LABS: HEMATOCRIT 32.6 % (36.0-47.0); HEMOGLOBIN 10.9 g/dl (12.0-15.5); MEAN CORPUSCULAR HEMOGLOBIN 30.9 pg (27.0-33.0); MEAN CORPUSCULAR HGB CONC 33.4 g/dl (32.0-36.5); MEAN CORPUSCULAR VOLUME 92.4 fl (80.0-96.0); PLATELET COUNT, AUTOMATED 271 10^3/uL (150-450); RED BLOOD COUNT 3.53 10^6/uL (4.00-5.40); WHITE BLOOD COUNT 17.6 10^3/uL (4.0-10.0)
[2021-03-03] MEDS ORDERED: DEXTROSE 50% 50 ML SYRINGE IV PRN (07:40)
[2021-03-03] MEDS ORDERED: GLUCOSE 4GM CHEW TABLET PO PRN (07:40)
[2021-03-03] MEDS ORDERED: GLUCAGON INJ 1MG VIAL SC PRN (07:40)
[2021-03-03 08:01] LABS: BLOOD UREA NITROGEN 9 MG/DL (7-18); C REACTIVE PROTEIN QUANTITATIV 8.91 MG/DL (0.00-0.30); CALCIUM LEVEL 8.5 MG/DL (8.5-10.1); CARBON DIOXIDE LEVEL 26 MEQ/L (21-32); CHLORIDE LEVEL 108 MEQ/L (98-107); CREATININE FOR GFR 0.64 MG/DL (0.55-1.30); GLOMERULAR FILTRATION RATE > 60.0 (>58); GLUCOSE, FASTING 103 MG/DL (70-100); POTASSIUM SERUM 3.9 MEQ/L (3.5-5.1); SODIUM LEVEL 138 MEQ/L (136-145); VANCOMYCIN LEVEL TROUGH 10.2 UG/ML (10.0-20.0)
[2021-03-03 08:32] LABS: ERYTHROCYTE SEDIMENTATION RATE 52 mm/hr (0-20)
[2021-03-03 08:51] LABS: INR 1.22; PROTHROMBIN TIME 15.7 SECONDS (12.5-14.3)
[2021-03-03] MEDS: VANCOMYCIN HCL 1,000 MG, VIAL MATE ADAPTER 1 EACH in NS 250 ML IV SCH ×2 (09:59→16:42)
--- NOTE | 2021-03-03 11:00 | IPNPDOC ---
Text Note Date of Service The patient was seen on 03/03/21. NOTE Subjective: Patient seen and examined at bedside. No acute overnight events reported. Patient has no new medical complaints this morning. Still complains of left hip pain. Objective: VITAL SIGNS: See below General; NAD, lying comfortably in bed HEENT: NC/AT, EOMI Lungs: CTA B/L Heart: +S1S2, RRR Abd: soft, NT, +BS Ext: no edema, large erythematous area left hip approx 8x8", no obvious drainage A/P: 40 yo female for one week history of worsening left hip pain, found to have large abscess/hematoma, with PMHx IV drug use. #left hip abscess/hematoma - history of MRSA - continue vanco/zosyn day #2 - d/w surgery - assistance appreciated - plan for abscess drainage #substance abuse - monitor for withdrawal #medical non-compliance - previously left AMA - complicates care #DVT prophylaxis - mechanical VS,Fishbone, I+O VS, Fishbone, I+O Laboratory Tests 03/03/21 07:16 Vital Signs Date Time Temp Pulse Resp B/P (MAP) Pulse Ox O2 Delivery O2 Flow Rate FiO2 03/03/21 06:00 98.7 76 20 102/58 (73) 97 Room Air I&O- Last 24 Hours up to 6 AM 03/03/21 06:00 Intake Total 3495 ml Output Total 950 ml Balance 2545 ml NADYA JO MD March 03, 2021 11:00
[2021-03-03] MEDS: HumaLOG INSULIN (NovoLOG) PER UNIT SC SCH ×3 (11:34→21:00)
[2021-03-03] MEDS ORDERED: MORPHINE 2 MG/ML 1ML VIAL (J2270) IV PRN (11:45)
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
[2021-03-03] MEDS ORDERED: NS 1,000 ML IV SCH (16:35)
[2021-03-03] MEDS ORDERED: LIDOCAINE W/EPINEPHRINE 1% 20ML VIAL As Ordered ONE (17:26)
[2021-03-03] MEDS ORDERED: LIDOCAINE 1% MDV 20ML VIAL As Ordered ONE (17:26)
[2021-03-03] MEDS ORDERED: LIDOCAINE 2% 100MG/5ML SDV (FOR ANES.) As Ordered ONE (17:35)
[2021-03-03] MEDS ORDERED: fentaNYL 100 MCG/2 ML INJECTION (J3010) As Ordered ONE ×2 (17:35→18:12)
[2021-03-03] MEDS ORDERED: ONDANSETRON 4MG/2ML VIAL As Ordered ONE (17:35)
[2021-03-03] MEDS ORDERED: MIDAZOLAM INJ 2MG/2ML VIAL (J2250 PER 1MG) As Ordered ONE (17:35)
[2021-03-03] MEDS ORDERED: propofoL 200 MG/20 ML VIAL As Ordered ONE (17:35)
--- NOTE | 2021-03-03 17:35 | CR.PDOC ---
General Surgery Consultation Date of Consultation 03/03/21 History and Physical CONSULT REPORT FOR: left hip soft tissue abscess REASON FOR CONSULTATION: Subcutaneous abscess, left hip HISTORY OF PRESENT ILLNESS: Patient is a 40-year-old female admitted under the hospital service yesterday for complaints of swelling, pain, redness of skin involving her left hip area of 1 week duration. She denies any history of trauma to the area, denies any intentional injection to the skin or subcutaneous. She admits to intermittently using IV drugs usually does it on her arm. She also admits to taking oral recreational drugs. She was admitted here back in November for a left perianal abscess that spontaneously drained. Cultures back in November shows MRSA. She had an ultrasound as well as MRI of the hip. This does not involve the sacral alphonse ne or the hip joint. PAST MEDICAL HISTORY: 1. Current history of IV drug use PAST SURGICAL HISTORY: INCLUDES: 1. None ALLERGIES: Please see below. HOME MEDICATIONS: Please see below. REVIEW OF SYSTEMS: GENERAL: reports feeling febrile. NECK: Denies any neck pain CARDIOVASCULAR: Denies chest pain and palpitations. MUSCULOSKELETAL: Denies arthralgias, back pain and thrombophlebitis. SKIN: Denies rash. NEUROLOGIC: denies headaches. PSYCHIATRIC: Denies anxiety and depression, admits to recreation drug use. HEMATOLOGY/ONCOLOGY: Denies bleeding or clotting disorder. PULMONARY: Denies chronic cough, dyspnea and wheezing. GASTROINTESTINAL: reports some nausea. GENITOURINARY: Denies dysuria, frequency, hematuria and nocturia. ENDOCRINE: Denies polydipsia, polyphagia, polyuria, heat or cold intolerance. INFECTIOUS: as above, history of MRSA. NUTRITION: Reports good appetite. PHYSICAL EXAMINATION: VITALS SIGNS: Please see below. GENERAL APPEARANCE:Patient mildly uncomfortable, laying on her right side. SKIN: moderate area of erythema involving the anterior left hip area extending to the posterior left hip area, not extending to the abdomen or at the hips and perineal area. There are two distinct areas of subcutaneous induration one larger about 5 cms and another about 3 cms( more lateral). No active drainage at this time. Tender on manipulation. HEENT: Normocephalic, atraumatic. [place] palpebral conjunctiva, anicteric sclerae. Lips and mucosa dry NECK: Supple, no thyromegaly. No obvious jugular venous distention. LUNGS: Clear to auscultation bilaterally. No wheezing appreciated. HEART: No chest wall abnormalities. Regular rate and rhythm with no murmurs appreciated. ABDOMEN: Abdomen is soft, nondistended EXTREMITIES: no extremity edema ANCILLARIES: . LABORATORY DATA: Please see below. IMAGING STUDIES: US soft tissues MRI of hip I reviewed the above studies. Shows subcutaneous collection, no involvement of the hips or bones. IMPRESSION AND PLAN: Subcutaneous abscess and soft tissue induration, left hip Patient advised that she needs incision and drainage of 2 areas of abscesses on her left hip. She is already on appropriate antibiotics cover for MRSA. Given the amount of induration and soft tissues are involved but would prefer to do this in the operating room. She was consented for incision and drainage of the abscesses. I discussed with her that most likely we will need to leave this wound cavity open for drainage and secondary healing. Consent obtained from the patient.. Vital Signs Vital Signs Date Time Temp Pulse Resp B/P (MAP) Pulse Ox O2 Delivery O2 Flow Rate FiO2 03/03/21 14:00 98.6 99 20 88/48 (61) 100 Room Air I&Os I&O- Last 24 Hours up to 6 AM 03/03/21 06:00 Intake Total 3495 ml Output Total 950 ml Balance 2545 ml Laboratory Data Labs 24H Laboratory Tests 2 03/03/21 07:16: Nucleated Red Blood Cells % (auto) 0.0, Erythrocyte Sedimentation Rate 52H, Anion Gap 4L, Glomerular Filtration Rate > 60.0, Calcium Level 8.5, C-Reactive Protein, Quantitative 8.91H, Vancomycin Level Trough 10.2 03/03/21 08:27: Prothrombin Time 15.7H, Prothromb Time International Ratio 1.22 03/03/21 11:28: Bedside Glucose (Misc Panel) 86 03/03/21 16:30: Bedside Glucose (Misc Panel) 63L CBC/BMP Laboratory Tests 03/03/21 07:16 Microbiology Microbiology 03/02/21 Respiratory Virus Panel (PCR) ([facility]) - Final, Complete 03/02/21 Blood Culture - Preliminary, Resulted No growth after 24 hours . All specim... 03/02/21 Blood Culture - Preliminary, Resulted No growth after 24 hours . All specim... Home Medications Scheduled PRN Ibuprofen (Ibu-200) 200 Mg Tablet, 800 MG PO Q6H PRN for PAIN, (Reported) Allergies Coded Allergies: No Known Allergies (Unverified , 07/27/17) ALON SCHAFFER MD March 03, 2021 17:35
[2021-03-03] MEDS ORDERED: dexameTHASONE 4 MG/ML 1ML VIAL (J1100 PER 1MG) As Ordered ONE (17:36)
[2021-03-03] MEDS ORDERED: PHENYLephrine 500MCG 5ML (100MCG/ML) SYRINGE As Ordered ONE ×2 (18:06→18:21)
[2021-03-03] MEDS ORDERED: ePHEDrine SULFATE 25 MG/5 ML(5MG/ML) SYRINGE As Ordered ONE (18:06)
[2021-03-03] MEDS ORDERED: LR 1,000 ML IV SCH (19:05)
[2021-03-03] MEDS ORDERED: PERCOCET 5MG/325MG TAB PO PRN (19:05)
[2021-03-03] MEDS ORDERED: ONDANSETRON 4MG/2ML VIAL IV PRN (19:05)
[2021-03-03] MEDS ORDERED: fentaNYL 100 MCG/2 ML INJECTION (J3010) IV PRN (19:05)
[2021-03-03] MEDS ORDERED: METOCLOPRAMIDE INJ 10MG/2ML VIAL (J2765 PER 1) IV PRN (19:05)
[2021-03-04] VITALS: BP 106/67
[2021-03-04] MEDS: VANCOMYCIN HCL 1,000 MG, VIAL MATE ADAPTER 1 EACH in NS 250 ML IV SCH (00:21)
[2021-03-04 02:00] VITALS: BP 104/53
[2021-03-04] MEDS: PIPERACILLIN/TAZOBACTAM SOD 3.375 GM in D5W MINI-BAG PLUS 50 ML IV SCH ×3 (02:10→13:44)
[2021-03-04 06:00] VITALS: BP 101/63
[2021-03-04 08:18] LABS: HEMATOCRIT 28.9 % (36.0-47.0); HEMOGLOBIN 10.1 g/dl (12.0-15.5); MEAN CORPUSCULAR HEMOGLOBIN 31.6 pg (27.0-33.0); MEAN CORPUSCULAR HGB CONC 34.9 g/dl (32.0-36.5); MEAN CORPUSCULAR VOLUME 90.3 fl (80.0-96.0); PLATELET COUNT, AUTOMATED 260 10^3/uL (150-450); WHITE BLOOD COUNT 19.4 10^3/uL (4.0-10.0)
[2021-03-04 08:41] LABS: ERYTHROCYTE SEDIMENTATION RATE 65 mm/hr (0-20)
[2021-03-04 08:49] LABS: C REACTIVE PROTEIN QUANTITATIV 10.8 MG/DL (0.00-0.30); CALCIUM LEVEL 8.3 MG/DL (8.5-10.1); CREATININE FOR GFR 1.86 MG/DL (0.55-1.30); GLOMERULAR FILTRATION RATE 31.6 (>58); POTASSIUM SERUM 3.8 MEQ/L (3.5-5.1)
[2021-03-04] MEDS ORDERED: KETOROLAC TROMETHAMINE 10 MG TAB PO PRN (09:05)
[2021-03-04] MEDS: HumaLOG INSULIN (NovoLOG) PER UNIT SC SCH ×4 (09:11→20:36)
[2021-03-04] MEDS ORDERED: VANCOMYCIN INTERMITTENT/PULSE DOSING BY CLINICAL PHARMACIST PER DOSING PROTOCOL XX SCH (09:25)
--- NOTE | 2021-03-04 10:01 | IPNPDOC ---
Text Note Date of Service The patient was seen on 03/04/21. NOTE Subjective: Patient seen and examined at bedside. States her pain has much improved. She is postop day 1 for incision and drainage of her left hip abscess. Objective: VITAL SIGNS: See below General; NAD, lying comfortably in bed HEENT: NC/AT, EOMI Lungs: CTA B/L Heart: +S1S2, RRR Abd: soft, NT, +BS A/P: 40 yo female for one week history of worsening left hip pain, found to have large left hip abscess/hematoma, with PMHx IV drug use. #left hip abscess/hematoma - history of MRSA - continue vanco/zosyn day #3 - d/w surgery - assistance appreciated - POD #1 for abscess drainage - cultures pending - pain control - morphine/oxy - will transition to tramadol when creatinine improves #HEAVEN - likely secondary to vanco, complicated with hypotension/ATN - start IV fluids, nephrology consultation - adjust vanco dosing as per pharm -holding vanco today, will also d/c zosyn for now #substance abuse - monitor for withdrawal #medical non-compliance - previously left AMA - complicates care #DVT prophylaxis - mechanical VS,Fishbone, I+O VS, Fishbone, I+O Laboratory Tests 03/04/21 08:02 Vital Signs Date Time Temp Pulse Resp B/P (MAP) Pulse Ox O2 Delivery O2 Flow Rate FiO2 03/04/21 06:00 97.8 69 18 101/63 (76) 97 Room Air I&O- Last 24 Hours up to 6 AM 03/04/21 06:00 Intake Total 3080 ml Output Total 1665 ml Balance 1415 ml NADYA JO MD March 04, 2021 10:01
[2021-03-04] MEDS: NS 1,000 ML IV SCH ×2 (10:42→20:43)
[2021-03-04] MEDS: MORPHINE 2 MG/ML 1ML VIAL (J2270) IV PRN ×2 (10:43→13:42)
[2021-03-04 14:00] VITALS: BP 89/58
[2021-03-04 16:40] LABS: CALCIUM LEVEL 8.6 MG/DL (8.5-10.1); CREATININE FOR GFR 2.56 MG/DL (0.55-1.30); GLOMERULAR FILTRATION RATE 21.9 (>58); POTASSIUM SERUM 3.8 MEQ/L (3.5-5.1)
[2021-03-04 20:28] LABS: CHLAMYDIA DNA AMPLIFICATION NEGATIVE (NEGATIVE); GC DNA AMPLIFICATION NEGATIVE (NEGATIVE)
[2021-03-04] MEDS: ACETAMINOPHEN TAB 650MG DOSE (2X325MG) PO PRN (20:52)
[2021-03-04 22:00] VITALS: BP 88/44
[2021-03-04] MEDS ORDERED: NS 500 ML IV ONE (23:15)
[2021-03-05] VITALS: BP 98/60
[2021-03-05] MEDS: NS 1,000 ML IV SCH ×2 (01:08→07:39)
[2021-03-05 02:51] LABS: CREATININE,RANDOM URINE 42.3 MG/DL
[2021-03-05 06:00] VITALS: BP 98/54
[2021-03-05 06:36] LABS: HEMATOCRIT 28.5 % (36.0-47.0); HEMOGLOBIN 9.4 g/dl (12.0-15.5); MEAN CORPUSCULAR HEMOGLOBIN 30.4 pg (27.0-33.0); MEAN CORPUSCULAR VOLUME 92.2 fl (80.0-96.0); PLATELET COUNT, AUTOMATED 247 10^3/uL (150-450); RED BLOOD COUNT 3.09 10^6/uL (4.00-5.40)
[2021-03-05 06:53] LABS: C REACTIVE PROTEIN QUANTITATIV 5.75 MG/DL (0.00-0.30); CALCIUM LEVEL 8.2 MG/DL (8.5-10.1); CREATININE FOR GFR 3.11 MG/DL (0.55-1.30); GLOMERULAR FILTRATION RATE 17.5 (>58); POTASSIUM SERUM 4.1 MEQ/L (3.5-5.1); VANCOMYCIN RANDOM 18.3 UG/ML
[2021-03-05] MEDS: HumaLOG INSULIN (NovoLOG) PER UNIT SC SCH ×4 (07:30→20:47)
[2021-03-05 07:32] LABS: ERYTHROCYTE SEDIMENTATION RATE 44 mm/hr (0-20)
[2021-03-05] MEDS: metroNIDAZOLE (FLAGYL) 500MG TABLET PO SCH ×2 (07:39→20:48)
[2021-03-05] MEDS ORDERED: VANCOMYCIN HCL 750 MG, VIAL MATE ADAPTER 1 EACH in NS 250 ML IV ONE (09:00)
--- NOTE | 2021-03-05 10:16 | IPNPDOC ---
Text Note Date of Service The patient was seen on 03/04/21. NOTE Patient is POD 1 incision and drainage of left hip abscess Reports feeling much better, visually most of the erythema is resolved. Large cavity with 2 separate incisions on the anterior and slightly posterior lateral portion of the hip but the cavities connected one another. I removed the original 2 inch vaginal packing and had this replaced with iodoform gauze packing. No further purulent drainage. Plan Patient has a large wound. Continue packing the wound with iodoform gauze. I expect this would take several weeks to fully heal and contract. I'll leave it to the medical service to determine when she is able to go home. If she does go home follow-up with me in 2 weeks' time. VS,Jonathan, I+O VS, Marthae, I+O Laboratory Tests 03/04/21 16:04 03/05/21 06:02 Vital Signs Date Time Temp Pulse Resp B/P (MAP) Pulse Ox O2 Delivery O2 Flow Rate FiO2 03/05/21 06:00 98.0 75 18 98/54 (69) 98 Room Air I&O- Last 24 Hours up to 6 AM 03/05/21 06:00 Intake Total 5685 ml Output Total 1700 ml Balance 3985 ml ALON SCHAFFER MD March 05, 2021 10:16
--- NOTE | 2021-03-05 11:12 | IPNPDOC ---
Text Note Date of Service The patient was seen on 03/05/21. NOTE Subjective: Patient seen and examined at bedside. States her pain has much improved. She is postop day #2 for incision and drainage of her left hip abscess. Objective: VITAL SIGNS: See below General; NAD, lying comfortably in bed HEENT: NC/AT, EOMI Lungs: CTA B/L Heart: +S1S2, RRR Abd: soft, NT, +BS Ext: left hip erythema much improved A/P: 40 yo female for one week history of worsening left hip pain, found to have large left hip abscess/hematoma, with PMHx IV drug use. #left hip abscess/hematoma - WCx +MRSA - zosyn discontinued - vanco on hold for renal dosing as per pharm - considering zyvox - surgery consultation - assistance appreciated - POD #2 for abscess drainage - pain control - morphine/oxy - will transition to tramadol when creatinine improves #HEAVEN - likely secondary to vanco, complicated with hypotension/ATN - continue IV fluids, nephrology consultation pending #substance abuse - monitor for withdrawal #medical non-compliance - previously left AMA - complicates care #DVT prophylaxis - mechanical VS,Fishbone, I+O VS, Fishbone, I+O Laboratory Tests 03/04/21 16:04 03/05/21 06:02 Vital Signs Date Time Temp Pulse Resp B/P (MAP) Pulse Ox O2 Delivery O2 Flow Rate FiO2 03/05/21 06:00 98.0 75 18 98/54 (69) 98 Room Air I&O- Last 24 Hours up to 6 AM 03/05/21 06:00 Intake Total 5685 ml Output Total 1700 ml Balance 3985 ml NADYA JO MD March 05, 2021 11:12
[2021-03-05] MEDS: PERCOCET 5MG/325MG TAB PO PRN (11:19)
[2021-03-05] MEDS: KCL 20MEQ IN 0.45NS 1000ML 1,000 ML IV SCH ×2 (12:48→20:48)
[2021-03-05 14:00] VITALS: BP 86/52
[2021-03-05] MEDS: MORPHINE 2 MG/ML 1ML VIAL (J2270) IV PRN (18:38)
[2021-03-05 21:25] LABS: ALBUMIN 1.9 GM/DL (3.2-5.2); CALCIUM LEVEL 8.6 MG/DL (8.5-10.1); CREATININE FOR GFR 3.51 MG/DL (0.55-1.30); GLOMERULAR FILTRATION RATE 15.2 (>58); PHOSPHORUS LEVEL 4.7 MG/DL (2.5-4.9); POTASSIUM SERUM 4.7 MEQ/L (3.5-5.1)
--- NOTE | 2021-03-05 23:15 | CR ---
NEPHROLOGY CONSULTATION DATE: 03/05/2021 REQUESTING PHYSICIAN: Dr. González Medina CONSULTING PHYSICIAN: Dr. Candi Zurita REASON FOR CONSULTATION: Management of acute renal failure CHIEF COMPLAINT: The patient presented to the hospital on March 02, 2021 with left hip pain. HISTORY OF PRESENT ILLNESS: Olivia Macario is a 40-year-old female with a past medical history of polysubstance abuse, IV drug abuse, baseline near normal renal function with a creatinine of 0.7. She presented to the hospital on March 02 with left hip pain. She was found to have a left hip abscess. She was started on IV fluid hydration and IV antibiotics. She was seen by surgical service and she got incision and drainage of the abscess on March 03. She was getting IV antibiotics. Her renal function started getting worse on March 04 with a creatinine of 1.8. It has bumped up to a creatinine of 3.1 today. Nephrology Services was called for further help in the management of this patient. I saw and evaluated the patient today morning at the bedside. She was being given IV fluid hydration. She was awake and alert and able to provide me with a history but she was very frustrated and mad that she has to stay in the hospital. PAST MEDICAL HISTORY: The patient's past medical history is significant for: 1. Polysubstance abuse. PAST SURGICAL HISTORY: The patient's past surgical history is significant for recent incision and drainage of left gluteal abscess on March 03. ALLERGIES: No known drug allergies. FAMILY HISTORY: No significant family history of end-stage renal disease. SOCIAL HISTORY: The patient lives alone. She admits to polysubstance abuse including doing Aracely. REVIEW OF SYSTEMS: Constitutional: She denies any fevers or chills. Eyes: She denies any blurry vision or double vision. ENT: She denies any dysphagia or odynophagia. Cardiovascular: Denies any chest pain, palpitations. Respiratory: She denies any shortness of breath. GI: Denies any nausea or vomiting. Genitourinary: She denies any dysuria or hematuria. Musculoskeletal: She reports left hip pain. Skin: She reports a recent abscess in the left gluteal area. LIGHTNING ROD ERECTOR: She denies any strokes or seizures. Hematological/Oncological: She denies any easy bleeding or bruising. All other review of systems is negative. PHYSICAL EXAMINATION: GENERAL APPEARANCE: The patient is awake, alert, oriented x3, laying in bed with an agitated mood. VITAL SIGNS: Temperature is 97.8 degrees Fahrenheit, blood pressure 86/52, pulse is 70, respiratory rate of 16, saturating 98% on room air. INTAKE AND OUTPUT: Urine output recorded as 1,100 mL yesterday, 1,700 mL so far today since overnight. Weight in the bed scale is not available. HEENT: Head exam - The extraocular muscles are intact. Pupils are equal, round and reactive to light. Mucous membranes are moist. NECK: Supple. There is no jugular venous distention. GENERAL APPEARANCE: The patient is awake, alert, oriented x3, laying in bed in no apparent distress. CARDIOVASCULAR: S1, S2, regular rate. EXTREMITIES: No edema of the bilateral lower extremities. RESPIRATORY: Chest is clear to auscultation bilaterally. Bilaterally currently no rales or rhonchi. ABDOMEN: Soft, positive bowel sounds, nontender, no organomegaly. MUSCULOSKELETAL: No clubbing, no cyanosis. LIGHTNING ROD ERECTOR: No focal deficits. Power is 5/5 in all extremities. LAB REVIEW: CBC showed a WBC of 11. Today hemoglobin is 9.4, platelet count 247. Urinalysis done yesterday showed 1+ protein, 1+ blood, 2+ leukocyte esterase. Urine random creatinine was 42.3 and random sodium was 52. BMP done today morning showed sodium 145, potassium 4.1, chloride 114, bicarbonate 23, BUN 24, creatinine is 3.1. Calcium is 8.2. C-reactive protein is 5.7 now. Random Vancomycin today was 18.3. Microbiology abscess culture showed Methicillin resistant staph aureus. IMAGING DATA: The patient got an MRI with Gadolinium done on March 02, 2021 which showed cellulitis of the left lateral pelvic soft tissue with a fluid collection. CURRENT INPATIENT MEDICATIONS: The patient's medications were all reviewed by myself. She was getting normal saline at 150 mL an hour. I stopped that fluid and started her on KCL 20 mEq and half normal saline at 100 mL an hour. She was also given a dose of IV Vancomycin today. She is getting Flagyl 500 mg p.o. twice daily, Morphine 2 mg p.r.n. for moderate pain and Percocet one tablet q. 4 hours p.r.n. for severe pain. ASSESSMENT AND PLAN: 1. Acute non oliguric renal failure: most likely it is multifactorial secondary to abscess, hypotension, use of Gadolinium and Vanco. It is reassuring that the patient is making a good amount of urine. I am hopeful that the patient's creatinine would plateau and start getting better. She is currently not on any nephrotoxic medications except Vancomycin and Vancomycin levels are within the acceptable range. Okay to continue the antibiotics at this time. If renal function does not start improving, then antibiotics will be changes. 2. Left hip abscess status post incision and drainage as mentioned above, the patient has MRSA infection. Continue Vancomycin at this time. 3. History of polysubstance abuse withdrawal precautions are as per the Medical Team. Thank you for involving me in the care of this patient. I shall be happy to follow the patient along with you tomorrow morning. MONTY
[2021-03-06 06:00] VITALS: BP 108/70
[2021-03-06 06:05] LABS: HEMATOCRIT 31.6 % (36.0-47.0); HEMOGLOBIN 10.5 g/dl (12.0-15.5); MEAN CORPUSCULAR HEMOGLOBIN 30.7 pg (27.0-33.0); MEAN CORPUSCULAR HGB CONC 33.2 g/dl (32.0-36.5); MEAN CORPUSCULAR VOLUME 92.4 fl (80.0-96.0); PLATELET COUNT, AUTOMATED 328 10^3/uL (150-450); RED BLOOD COUNT 3.42 10^6/uL (4.00-5.40); WHITE BLOOD COUNT 10.1 10^3/uL (4.0-10.0)
[2021-03-06 06:25] LABS: C REACTIVE PROTEIN QUANTITATIV 3.85 MG/DL (0.00-0.30); CALCIUM LEVEL 8.3 MG/DL (8.5-10.1); CREATININE FOR GFR 3.82 MG/DL (0.55-1.30); GLOMERULAR FILTRATION RATE 13.8 (>58); POTASSIUM SERUM 4.7 MEQ/L (3.5-5.1)
[2021-03-06] MEDS: HumaLOG INSULIN (NovoLOG) PER UNIT SC SCH ×4 (07:19→20:08)
[2021-03-06 07:44] LABS: ERYTHROCYTE SEDIMENTATION RATE 62 mm/hr (0-20)
--- NOTE | 2021-03-06 09:13 | IPNPDOC ---
Text Note Date of Service The patient was seen on 03/06/21. NOTE Subjective: Patient seen and examined at bedside. States her pain has much improved. She is postop day #3 for incision and drainage of her left hip abscess. Objective: VITAL SIGNS: See below General; NAD, lying comfortably in bed, sleeping on arrival HEENT: NC/AT, EOMI Lungs: CTA B/L Heart: +S1S2, RRR Abd: soft, NT, +BS Ext: left hip erythema much improved, bandages in place with some drainage A/P: 40 yo female for one week history of worsening left hip pain, found to have large left hip abscess/hematoma, with PMHx IV drug use. #left hip abscess/hematoma - WCx +MRSA - zosyn discontinued - transitioned to zyvox - surgery consultation - assistance appreciated - POD #3 for abscess drainage - pain control - morphine/oxy #HEAVEN - likely secondary to vanco, complicated with hypotension/ATN - continue IV fluids, nephrology consultation appreciated #substance abuse - monitor for withdrawal #medical non-compliance - previously left AMA - complicates care #DVT prophylaxis - mechanical VS,Fishbone, I+O VS, Fishbone, I+O Laboratory Tests 03/05/21 20:52 03/06/21 05:35 Vital Signs Date Time Temp Pulse Resp B/P (MAP) Pulse Ox O2 Delivery O2 Flow Rate FiO2 03/06/21 06:00 98.0 80 18 108/70 (83) 98 03/05/21 14:00 Room Air I&O- Last 24 Hours up to 6 AM 03/06/21 06:00 Intake Total 3380 ml Output Total 2900 ml Balance 480 ml NADYA JO MD March 06, 2021 09:13
[2021-03-06] MEDS: metroNIDAZOLE (FLAGYL) 500MG TABLET PO SCH ×2 (09:55→21:26)
[2021-03-06] MEDS: LINEZOLID 600 MG in IV 1 EA IV SCH ×2 (09:58→21:27)
[2021-03-06] MEDS: ONDANSETRON 4 MG TAB PO PRN ×2 (10:00→17:48)
[2021-03-06] MEDS ORDERED: NS 0.45% 1,000 ML IV SCH (10:05)
[2021-03-06] MEDS ORDERED: MORPHINE 4 MG/ML 1ML VIAL/SYRINGE (J2270) IV PRN (12:30)
[2021-03-06 21:21] VITALS: BP 95/58
[2021-03-06] MEDS: PERCOCET 5MG/325MG TAB PO PRN (21:26)
--- NOTE | 2021-03-06 21:46 | IPN ---
PROGRESS NOTE DATE: 03/06/2021 SUBJECTIVE: Patient was seen and examined at the bedside today morning. She is getting I.V. fluid hydration, although she is nonoliguric. There is no improvement in the creatinine level. Patient is still frustrated that she has to stay in the hospital. She is otherwise afebrile and hemodynamically stable. OBJECTIVE: VITAL SIGNS: Temperature 98 degrees Fahrenheit, blood pressure 108/70, pulse 80, respiratory rate 18, saturating 98% on room air. INTAKE/OUTPUT: Urine output recorded as 2.7 liters yesterday and 2100 mL so far today since overnight. Weight in the bed scale is not available. PHYSICAL EXAMINATION: GENERAL: Patient is awake, alert and oriented x3, lying in bed, in no apparent distress. HEAD/NECK: Extraocular muscles intact. Pupils equally round and reactive to light. Mucous membranes are moist. Neck is supple. There is no JVD. CVS: S1, S2, regular rate. No edema of the bilateral lower extremities. RESPIRATORY: Chest is clear to auscultation bilaterally. Bilateral equal air entry. No rales or rhonchi. ABDOMEN: Soft, positive bowel sounds, nontender. No organomegaly. MUSCULOSKELETAL: She has a dressing on the left gluteal area. KICKBOXING INSTRUCTOR: No focal deficit. Power is 5/5 in all extremities. LABORATORY REVIEW: CBC showed WBC 10.1, hemoglobin 10.5, platelets 328,000. BMP showed sodium 142, potassium 4.7, chloride 114, bicarb 20, BUN 27, creatinine 3.8; it was 3.1 yesterday morning. C-reactive protein 3.8. CURRENT INPATIENT MEDICATIONS: Patient's medications were all reviewed by myself. Her Vancomycin has been stopped. She has been started on Zyvox 600 mg I.V. every 12 hours. She is getting I.V. fluid hydration, which will be finished today. No other significant change in the medications today as compared with yesterday. ASSESSMENT AND PLAN: 1. Acute nonoliguric renal failure: Patient's creatinine is still trending up, however, she has a very good urine output. I.V. antibiotics have been changed to Zyvox to prevent further renal injury with Vancomycin. Patient is hydrating herself well. I.V. fluids will be stopped in the evening. I am hopeful that her kidney function should get better over the next 1-2 days. Any time I see improvement in the creatinine, we should be comfortable to send her home and see her as an outpatient. 2. Left hip abscess: As mentioned above Vancomycin is stopped because of acute renal failure and she is currently on I.V. Zyvox. DISPOSITION: Patient is still not cleared for discharge. If I see improvement in the creatinine by tomorrow, then she will be sent home. Unfortunately, patient would not be very reliable to follow-up because of her history of polysubstance abuse.
[2021-03-07 06:00] VITALS: BP 103/68
[2021-03-07 06:52] LABS: HEMOGLOBIN 10.4 g/dl (12.0-15.5); MEAN CORPUSCULAR HGB CONC 33.5 g/dl (32.0-36.5); MEAN CORPUSCULAR VOLUME 92.3 fl (80.0-96.0); PLATELET COUNT, AUTOMATED 339 10^3/uL (150-450); RED BLOOD COUNT 3.36 10^6/uL (4.00-5.40); WHITE BLOOD COUNT 10.8 10^3/uL (4.0-10.0)
[2021-03-07 07:11] LABS: ERYTHROCYTE SEDIMENTATION RATE 65 mm/hr (0-20)
[2021-03-07 07:16] LABS: C REACTIVE PROTEIN QUANTITATIV 2.59 MG/DL (0.00-0.30); CALCIUM LEVEL 8.1 MG/DL (8.5-10.1); CREATININE FOR GFR 3.83 MG/DL (0.55-1.30); GLOMERULAR FILTRATION RATE 13.7 (>58); POTASSIUM SERUM 4.7 MEQ/L (3.5-5.1)
[2021-03-07] MEDS: HumaLOG INSULIN (NovoLOG) PER UNIT SC SCH ×2 (07:30→12:00)
[2021-03-07] MEDS: metroNIDAZOLE (FLAGYL) 500MG TABLET PO SCH (09:00)
[2021-03-07] MEDS: PERCOCET 5MG/325MG TAB PO PRN (09:00)
[2021-03-07] MEDS ORDERED: ZYVO1TAB PO (09:35)
[2021-03-07] MEDS ORDERED: metroNIDAZOLE (FLAGYL) 500MG TABLET PO ONE (09:35)
[2021-03-07 10:28] LABS: CORTISOL AM 17.6 UG/DL (4.3-22.4)
[2021-03-07] MEDS: LINEZOLID 600 MG in IV 1 EA IV SCH (11:08)
--- NOTE | 2021-03-07 15:58 | IPN ---
PROGRESS NOTE DATE: 03/07/2021 SUBJECTIVE: Patient was seen and examined at the bedside today morning. She is afebrile, hemodynamically stable. Her IV fluids have been stopped. She has good urine output. Creatinine has plateaued at 3.8 now. Patient wants to go home today and she agrees to followup as outpatient. OBJECTIVE: Vital signs: Temperature is 98 degrees Fahrenheit, blood pressure 103/68, pulse is 78, respiratory rate of 16, saturating 97% on room air. Intake and output: Urine output recorded is 3 liters yesterday, 1.8 liters so far today since overnight. Weight in the bed scale is not available. PHYSICAL EXAMINATION: General: Patient is awake, alert, oriented times three, laying in bed, no apparent distress. Head and neck exam: Extraocular muscles intact. Pupils equally round and reactive to light. Mucous membranes are moist. Neck is supple. There is no jugular venous distension (JVD). Cardiovascular: S1, S2, regular rate. No edema of the bilateral lower extremities. Respiratory: Chest is clear to auscultation bilaterally. Bilateral equal air entry. No rales or rhonchi. Abdomen: Soft, positive bowel sounds, nontender. No organomegaly. Musculoskeletal: No clubbing or cyanosis. Pulses are 2+. Central nervous system ([employer]IAN): No focal deficit. Power is 5/5 in all extremities. LABORATORY REVIEW: CBC showed WBC 10.8, hemoglobin 10.4, platelets are 339. BMP showed sodium 140, potassium 4.7, chloride 111, bicarbonate 23, BUN 27, creatinine is 3.8. CURRENT INPATIENT MEDICATIONS: Patient's medications were all reviewed by myself. She continues to be on IV Zyvox. She is also on by mouth Flagyl. No other significant change in the medications today. ASSESSMENT AND PLAN: 1. Acute nonoliguric renal failure. Patient's creatinine has plateaued. I am hopeful that her renal function should start improving now. She will need to followup with nephrology as outpatient after discharge from the hospital. 2. Left hip abscess. Patient is on Zyvox and Flagyl. Leukocytosis is getting better. Okay to continue Zyvox or doxycycline or clindamycin as outpatient. DISPOSITION: Patient's renal function has not improved, however she is nonoliguric, creatinine has plateaued. Hopefully, her function should start getting better over the next 24-48 hours. She does need to followup as outpatient. Patient agrees to followup with nephrology as outpatient but she wants to go home to take care of some issues.
--- NOTE | 2021-03-07 16:03 | DS.PDOC ---
Discharge Summary General Date of Admission March 02, 2021 at 10:28 Date of Discharge 03/07/21 Discharge Summary PROCEDURES PERFORMED DURING STAY: Surgical drainage of left hip abscess DISCHARGE DIAGNOSES: #Left hip abscess #MRSA wound infection #acute kidney injury #substance abuse #Medical noncompliance COMPLICATIONS/CHIEF COMPLAINT: Abscess Of Buttocks, Left & Sepsis. HPI/HOSPITAL COURSE: 40 year old female with PMHx of substance abuse/IVDA, presents for one week history of worsening left hip pain, with nausea. She states her last IV drug use was with "Aracely" about 5 days ago. She states she does not inject in her hip, only her arm. She denies any other illicit drug use. She denies chest pain, s hortness of breath, abdominal pain, N/V/D. Patient was admitted for further evaluation and treatment. She was seen in consultation by surgery and underwent drainage of her left hip abscess. When cultures returned positive for MRSA. Her hospital stay was complicated with acute kidney injury, which was deemed to be secondary to vancomycin, located with hypotension with acute tubulonecrosis. Renal function plateaued. She was seen in consultation by nephrology. She was deemed stable from a nephrology standpoint for discharge home with outpatient follow-up. She does not have medical insurance. However, her Zyvox was arranged on discharge by social work therapist. #left hip abscess/hematoma - WCx +MRSA - zosyn discontinued - transitioned to zyvox - provided on discharge - surgery consultation - assistance appreciated - POD #4 for abscess drainage - dressing changes as per surgery - recs for discharge home and outpatient follow up #HEAVEN - likely secondary to vanco, complicated with hypotension/ATN - nephrology c/s appreciated - recs for outpatient follow up #substance abuse #medical non-compliance - previously left AMA - complicates care DISCHARGE MEDICATIONS: Please see below. ALLERGIES: Please see below. PHYSICAL EXAMINATION ON DISCHARGE: VITAL SIGNS: See below General; NAD, lying comfortably in bed, sleeping on arrival HEENT: NC/AT, EOMI Lungs: CTA B/L Heart: +S1S2, RRR Abd: soft, NT, +BS Ext: left hip erythema much improved, bandages in place with some drainage LABORATORY DATA: Please see below. ACTIVITY: [As tolerated]. DISPOSITION: 01 Home, Self-Care. DISCHARGE INSTRUCTIONS: 1. Follow up with PCP in 3-5 days. 2. Follow up nephrology as scheduled 3. Stop illicit drug abuse. 4. Surgery follow as directed DISCHARGE CONDITION: [Stable]. TIME SPENT ON DISCHARGE: 35 minutes. Vital Signs/I&Os Vital Signs Date Time Temp Pulse Resp B/P (MAP) Pulse Ox O2 Delivery O2 Flow Rate FiO2 03/07/21 10:00 18 Room Air 03/07/21 06:00 98.0 78 103/68 (80) 97 I&O- Last 24 Hours up to 6 AM 03/07/21 06:00 Intake Total 1970 ml Output Total 2200 ml Balance -230 ml Laboratory Data Labs 24H Laboratory Tests 2 03/06/21 16:54: Bedside Glucose (Misc Panel) 85 03/06/21 20:04: Bedside Glucose (Misc Panel) 98 03/07/21 06:31: Nucleated Red Blood Cells % (auto) 0.0, Erythrocyte Sedimentation Rate 65H, Anion Gap 6L, Glomerular Filtration Rate 13.7L, Calcium Level 8.1L, C-Reactive Protein, Quantitative 2.59H 03/07/21 11:38: Bedside Glucose (Misc Panel) 103 CBC/BMP Laboratory Tests 03/07/21 06:31 FSBS Laboratory Tests Test 03/06/21 16:54 03/06/21 20:04 03/07/21 11:38 Range/Units Bedside Glucose (Misc Panel) 85 98 103 70-105 MG/DL Microbiology Microbiology 03/04/21 Urine Culture - Final, Complete 03/03/21 Gram Stain - Final, Complete 03/03/21 Abscess Culture - Final, Complete Staph.aureus Methicillin Resis 03/03/21 Anaerobic Culture - Final, Complete 03/02/21 Respiratory Virus Panel (PCR) (ASHLYN) - Final, Complete 03/02/21 Blood Culture - Final, Complete NO GROWTH AFTER 5 DAYS 03/02/21 Blood Culture - Final, Complete NO GROWTH AFTER 5 DAYS Discharge Medications Scheduled Linezolid (Zyvox) 600 Mg Tablet, 1 TAB PO BID with food Allergies Coded Allergies: No Known Allergies (Unverified , 07/27/17) NADYA JO MD March 07, 2021 16:03
--- NOTE | 2021-03-16 04:26 | ROOPDOC ---
[facility] Report Of Operation Report of Operation DATE OF PROCEDURE: 03/16/21 PREPROCEDURE DIAGNOSES: left hip abscess. POSTPROCEDURE DIAGNOSES: left hip abscess. PROCEDURE: Incision and drainage of left hip a bscess. SURGEON: Nino Kendall MD MOTOR POOL CLERK: ANESTHESIA: General Endotracheal Anesthesia. ESTIMATED BLOOD LOSS: Approximately 20 mL. COMPLICATIONS: none. REMARKS: 40 F with 1 week history of redness and swelling involving both the anterior and posterior portion of her left hip area noted to have a large pocket of abscess in the area. At the time of the surgery she has been draining p urulent material from the swelling. She has also been febrile.. PROCEDURE NOTE: Large pocket extending and extending both anteriorly and posteriorly to the hip not involving the bones mostly at the subcutaneous tissue. She is to fluctuant collections which initially in my examination seem to be separate one anterior and one posterior to the hip area but intraoperatively there were noted to connect to one another. Foul-smelling purulent fluid as well as some hematoma was evacuated.. DESCRIPTION OF PROCEDURE: Patient has been receiving multiple IV antibiotics since admission to the hospital. She was brought to the operating room, placed supine on the table slightly tilted towards the right site of access to the posterior portion of the hip. Gen. endotracheal anesthesia was established. Bilateral compression devices placed on both lower extremities were DVT prophylaxis. The hip area was then prepped and draped in the usual sterile fashion. Insert timeout She is to fluctuant mounds on the skin the anterior one is draining brownish foul-smelling fluid and thinning of the skin. This was infiltrated with local anesthesia. I used a mixture of 1% lidocaine and 14% Marcaine. A cruciate skin incision removing the thinned out portion of the skin was done with immediate drainage of foul-smelling thin purulent fluid also later on some hematoma was evacuated. This was a fairly big single cavity extending anteriorly to the left hip. She has a separate fluctuant mild more posterior in location on the left hip about 4 cm apart from the prior area. I thought this was a separate collection so I made a separate cruciate incision removing the skin here and again a got drainage of purulent fluid and this was extending slightly posteriorly but I also noted that the 2 cavities communicated with one another. The cavities were irrigated with saline and after temporary packing to obtain hemostasis this was then packed with 2 inch vaginal packing moistened with saline. Bulky gauze dressing and ABDs was then placed in top of the incision held in place with a postoperative underwear. Patient stable throughout the procedure. She was promptly awakened, extubated and brought to recovery room in stable condition.. NINO KENDALL MD March 16, 2021 04:26
== END 2021-03-07 14:16 | disposition home or self-care (01) | DRG 383 ==
LOC: M ED 06:26 → M ED INP 10:28 → ENRESERV 12:23 → M MSPAV 14:36
PROVIDERS: ADMIT Internal Medicine; ATTEND Internal Medicine
PROC: 0Y910ZZ Drainage of Left Buttock, Open Approach (ICD-10-PCS; principal; 2021-03-03 08:27)
DX: L02.416 Cutaneous abscess of left lower limb (principal); N17.0 Acute kidney failure with tubular necrosis; I95.9 Hypotension, unspecified; F15.10 Other stimulant abuse, uncomplicated; B95.62 Methicillin resistant Staphylococcus aureus infection as the cause of diseases classified elsewhere; Z91.19 Patient's noncompliance with other medical treatment and regimen; L03.317 Cellulitis of buttock

== ENCOUNTER 2021-07-19 06:26 | Emergency (ER) | payer OTHER ==
[~2021-07-19] VITALS: Ht 157.5 cm; Wt 56.8 kg
[~2021-07-19 06:26] MED LIST changes: -CLIN150C15 PO; +CLIN150C17 PO; -DOXY100C37 PO; +DOXY1CAP62 PO; +IBUP200T45 PO; +RALTEGRAVIR 400 MG TAB (ISENTRESS) PO SCH; +ZYVO1TAB PO
[2021-07-19 09:34] LABS: BASO % 0.6 % (0.0-1.0); EOS # 0.1 10^3/uL (0.0-0.5); EOS % 1.7 % (0.0-3.0); HEMATOCRIT 39.2 % (36.0-47.0); LYMPH # 2.6 10^3/uL (1.5-5.0); LYMPH % 39.8 % (24.0-44.0); MEAN CORPUSCULAR HEMOGLOBIN 29.3 pg (27.0-33.0); MEAN CORPUSCULAR HGB CONC 33.2 g/dl (32.0-36.5); MEAN CORPUSCULAR VOLUME 88.5 fl (80.0-96.0); MONO # 0.7 10^3/uL (0.0-0.8); MONO % 10.6 % (2.0-8.0); NEUTROPHILS % 46.8 % (36.0-66.0); PLATELET COUNT, AUTOMATED 300 10^3/uL (150-450); RED BLOOD COUNT 4.43 10^6/uL (4.00-5.40); WHITE BLOOD COUNT 6.4 10^3/uL (4.0-10.0)
[2021-07-19 10:01] LABS: ALBUMIN 3.4 GM/DL (3.2-5.2); ALT/SGPT 182 U/L (12-78); BILIRUBIN,TOTAL 0.4 MG/DL (0.2-1.0); BLOOD UREA NITROGEN 12 MG/DL (7-18); CALCIUM LEVEL 9.1 MG/DL (8.5-10.1); CARBON DIOXIDE LEVEL 28 MEQ/L (21-32); CHLORIDE LEVEL 109 MEQ/L (98-107); CREATININE FOR GFR 0.74 MG/DL (0.55-1.30); GLOMERULAR FILTRATION RATE > 60.0 (>58); GLUCOSE, FASTING 90 MG/DL (70-100); POTASSIUM SERUM 4.7 MEQ/L (3.5-5.1); SODIUM LEVEL 142 MEQ/L (136-145); TOTAL PROTEIN 7.8 GM/DL (6.4-8.2)
[2021-07-19 10:05] LABS: HCG, SERUM QUALITATIVE NEGATIVE (NEGATIVE)
[2021-07-19 10:10] LABS: HEPATITIS B SURFACE ANTIBODY POSITIVE (POSITIVE)
[2021-07-19 10:21] LABS: HEPATITIS B SURFACE ANTIGEN NEGATIVE (NEGATIVE)
[2021-07-19 10:49] LABS: HIV 1&2 SCREEN CENTAUR NEGATIVE (NEGATIVE)
[2021-07-19 10:53] LABS: HEPATITIS C VIRUS ABY INDEX > 11.0 INDEX (<0.8)
[2021-07-19] MEDS ORDERED: EMTR1TAB16 PO (11:29)
[2021-07-19] MEDS ORDERED: DOXY-342 PO (11:29)
[2021-07-19] MEDS ORDERED: RALT40TA PO (11:29)
[2021-07-19] MEDS ORDERED: cefTRIAXone SOD 250MG VIAL (J0696 PER 250MG) IM ONE (11:30)
[2021-07-19] MEDS ORDERED: DOXYCYCLINE HYCLATE 100MG TABLET PO ONE (11:30)
[2021-07-19] MEDS ORDERED: EXPOSURE KIT-ADULT 7 DAY SUPPLY PO ONE (11:30)
[2021-07-19] MEDS ORDERED: ULIPRISTAL ACETATE 30 MG TAB (ELLA) PO ONE (11:30)
[2021-07-19] MEDS ORDERED: LIDOCAINE 1% SDV 5ML VIAL DILUENT ONE (11:30)
[2021-07-19] MEDS ORDERED: metroNIDAZOLE (FLAGYL) 500MG TABLET PO ONE (11:30)
[2021-07-19] MEDS ORDERED: TRUVADA 200MG/300MG TABLET PO ONE (13:00)
[2021-07-19] MEDS ORDERED: RALTEGRAVIR 400 MG TAB (ISENTRESS) PO ONE (13:00)
[2021-07-19 14:38] VITALS: BP 131/77
[2021-07-20] MEDS ORDERED: TRUVADA 200MG/300MG TABLET PO SCH
== END 2021-07-19 15:02 | disposition home or self-care (01) ==
LOC: M ED 06:26
DX: T76.21XA Adult sexual abuse, suspected, initial encounter (principal); N89.8 Other specified noninflammatory disorders of vagina
CPT/HCPCS: 36415; 80053; 84703; 85025; 86706; 86780; 86803; 87340; 87389; 87521; 96372; 99284; J0696

== ENCOUNTER 2021-12-07 00:16 | Emergency (ER) | payer MEDICAID, OTHER ==
[~2021-12-07] VITALS: Ht 154.9 cm; Wt 67.7 kg
[~2021-12-07 00:16] MED LIST changes: +DOXY-342 PO; +DOXY-443 PO; -DOXY1CAP62 PO; +EMTR1TAB16 PO; +RALT40TA PO; -RALTEGRAVIR 400 MG TAB (ISENTRESS) PO SCH
[2021-12-07 03:05] LABS: RSV AMPLIFICATION NEGATIVE (NEGATIVE)
[2021-12-07] MEDS ORDERED: KETOROLAC TROMETHAMINE 10 MG TAB PO ONE (03:25)
[2021-12-07] MEDS ORDERED: CHLO1.4S7 MT (03:28)
[2021-12-07] MEDS ORDERED: KETO10TAB PO (03:28)
[2021-12-07 04:05] VITALS: BP 129/77
== END 2021-12-07 04:06 | disposition home or self-care (01) ==
LOC: M ED 00:16
DX: J06.9 Acute upper respiratory infection, unspecified (principal); F11.10 Opioid abuse, uncomplicated

== ENCOUNTER 2022-01-29 00:50 | Emergency (ER) | payer MEDICAID ==
[~2022-01-29] VITALS: Ht 154.9 cm; Wt 59.6 kg
[~2022-01-29 00:50] MED LIST changes: +CHLO1.4S7 MT; +KETO10TAB PO
[2022-01-29 00:51] VITALS: BP 112/63
[2022-01-29] MEDS ORDERED: CIPROFLOXACIN 500MG TABLET PO ONE (02:35)
[2022-01-29] MEDS ORDERED: PHENAZOPYRIDINE 100 MG TAB PO ONE (02:35)
[2022-01-29] MEDS ORDERED: CIPR-249 PO (02:36)
[2022-01-29] MEDS ORDERED: PYRI1TAB5 PO (02:36)
== END 2022-01-29 02:55 | disposition home or self-care (01) ==
LOC: M ED 00:50
DX: N39.0 Urinary tract infection, site not specified (principal); F15.10 Other stimulant abuse, uncomplicated

== ENCOUNTER 2022-02-25 19:43 | Emergency (ER) | payer MEDICAID ==
[~2022-02-25] VITALS: Ht 157.5 cm; Wt 63.6 kg
[~2022-02-25 19:43] MED LIST changes: -AFRI0.058; +CIPR-249 PO; +OXYM15SP2; +PYRI1TAB5 PO
[2022-02-25] MEDS ORDERED: ONDANSETRON 4MG/2ML VIAL IV ONE (20:00)
[2022-02-25] MEDS ORDERED: NS 1,000 ML IV SCH (20:00)
[2022-02-25 20:43] LABS: BASO % 0.7 % (0.0-1.0); EOS # 0.1 10^3/uL (0.0-0.5); HEMATOCRIT 38.7 % (36.0-47.0); HEMOGLOBIN 13.5 g/dl (12.0-15.5); LYMPH # 2.7 10^3/uL (1.5-5.0); LYMPH % 43.1 % (24.0-44.0); MEAN CORPUSCULAR HGB CONC 34.9 g/dl (32.0-36.5); MEAN CORPUSCULAR VOLUME 91.7 fl (80.0-96.0); MONO # 0.8 10^3/uL (0.0-0.8); MONO % 12.4 % (2.0-8.0); NEUTROPHILS # 2.6 10^3/uL (1.5-8.5); NEUTROPHILS % 41.3 % (36.0-66.0); PLATELET COUNT, AUTOMATED 272 10^3/uL (150-450); RED BLOOD COUNT 4.22 10^6/uL (4.00-5.40); WHITE BLOOD COUNT 6.2 10^3/uL (4.0-10.0)
[2022-02-25 21:32] LABS: ACETAMINOPHEN LEVEL < 2.0 UG/ML (10.0-30.0); ALBUMIN 3.7 GM/DL (3.2-5.2); ALT/SGPT 146 U/L (12-78); BILIRUBIN,DIRECT 0.1 MG/DL (0.0-0.2); BILIRUBIN,TOTAL 0.3 MG/DL (0.2-1.0); BLOOD UREA NITROGEN 19 MG/DL (7-18); CALCIUM LEVEL 9.1 MG/DL (8.5-10.1); CARBON DIOXIDE LEVEL 26 MEQ/L (21-32); CHLORIDE LEVEL 110 MEQ/L (98-107); CREATININE FOR GFR 0.86 MG/DL (0.55-1.30); ETHYL ALCOHOL (ETHANOL) < 0.003 % (0.000-0.010); GLOMERULAR FILTRATION RATE > 60.0 (>58); GLUCOSE, FASTING 97 MG/DL (70-100); POTASSIUM SERUM 3.8 MEQ/L (3.5-5.1); SALICYLATE LEVEL < 1.7 MG/DL (5.0-30.0); SODIUM LEVEL 142 MEQ/L (136-145); TOTAL PROTEIN 7.3 GM/DL (6.4-8.2)
[2022-02-25 22:30] VITALS: BP 133/80
== END 2022-02-25 22:33 | disposition left against medical advice (07) ==
LOC: EDBD 19:43 → M ED 19:43
DX: T43.642A Poisoning by ecstasy, intentional self-harm, initial encounter (principal); F19.10 Other psychoactive substance abuse, uncomplicated; F17.200 Nicotine dependence, unspecified, uncomplicated; F10.10 Alcohol abuse, uncomplicated
CPT/HCPCS: 80048; 80076; 80143; 82077; 82550; 84443; 85025; 93005; 93041; 94760; 96361; 96374; 99285; J2405

== ENCOUNTER 2022-04-16 23:07 | Emergency (ER) | payer MEDICAID ==
[~2022-04-16] VITALS: Ht 157.5 cm; Wt 54.5 kg
[2022-04-17] MEDS ORDERED: NS 1,000 ML IV ONE (00:50)
[2022-04-17] MEDS ORDERED: KETOROLAC 60MG 2ML VIAL IM ONE (01:20)
[2022-04-17 01:59] LABS: BASO % 0.2 % (0.0-1.0); EOS % 0.2 % (0.0-3.0); HEMATOCRIT 39.5 % (36.0-47.0); HEMOGLOBIN 13.7 g/dl (12.0-15.5); LYMPH # 1.5 10^3/uL (1.5-5.0); LYMPH % 11.7 % (24.0-44.0); MEAN CORPUSCULAR HEMOGLOBIN 31.6 pg (27.0-33.0); MEAN CORPUSCULAR HGB CONC 34.7 g/dl (32.0-36.5); MEAN CORPUSCULAR VOLUME 91.2 fl (80.0-96.0); MONO # 0.6 10^3/uL (0.0-0.8); MONO % 4.7 % (2.0-8.0); NEUTROPHILS # 10.7 10^3/uL (1.5-8.5); NEUTROPHILS % 82.9 % (36.0-66.0); PLATELET COUNT, AUTOMATED 248 10^3/uL (150-450); RED BLOOD COUNT 4.33 10^6/uL (4.00-5.40); WHITE BLOOD COUNT 12.9 10^3/uL (4.0-10.0)
[2022-04-17 02:23] LABS: ALBUMIN 3.5 GM/DL (3.2-5.2); ALT/SGPT 49 U/L (12-78); BILIRUBIN,TOTAL 0.3 MG/DL (0.2-1.0); BLOOD UREA NITROGEN 16 MG/DL (7-18); CALCIUM LEVEL 9.5 MG/DL (8.5-10.1); CARBON DIOXIDE LEVEL 28 MEQ/L (21-32); CHLORIDE LEVEL 110 MEQ/L (98-107); GLOMERULAR FILTRATION RATE > 60.0 (>58); GLUCOSE, FASTING 105 MG/DL (70-100); LIPASE 246 U/L (73-393); POTASSIUM SERUM 3.9 MEQ/L (3.5-5.1); SODIUM LEVEL 142 MEQ/L (136-145); TOTAL PROTEIN 7.4 GM/DL (6.4-8.2)
[2022-04-17 06:32] LABS: AMPHETAMINES LEVEL URINE POSITIVE (NEGATIVE); BARBITURATES URINE NEGATIVE (NEGATIVE); BENZODIAZEPINES URINE NEGATIVE (NEGATIVE); CANNABINOIDS URINE NEGATIVE (NEGATIVE); COCAINE METABOLITE URINE NEGATIVE (NEGATIVE); METHADONE URINE NEGATIVE (NEGATIVE); OPIATES URINE NEGATIVE (NEGATIVE); PHENCYCLIDINE URINE NEGATIVE (NEGATIVE)
[2022-04-17 06:35] VITALS: BP 130/75
[2022-04-17] MEDS ORDERED: NITROFURANTOIN (MACROBID) 100 MG CAP PO ONE (07:05)
[2022-04-17] MEDS ORDERED: MACR100C43 PO (07:05)
== END 2022-04-17 07:32 | disposition home or self-care (01) ==
LOC: M ED 23:07
DX: N39.0 Urinary tract infection, site not specified (principal); F19.10 Other psychoactive substance abuse, uncomplicated; I25.2 Old myocardial infarction; B18.2 Chronic viral hepatitis C; F17.200 Nicotine dependence, unspecified, uncomplicated; Z86.73 Personal history of transient ischemic attack (TIA), and cerebral infarction without residual deficits; Z79.899 Other long term (current) drug therapy

== ENCOUNTER 2023-05-21 23:58 | Emergency (ER) | payer MEDICAID ==
[~2023-05-21] VITALS: Ht 157.5 cm; Wt 65.9 kg
[~2023-05-21 23:58] MED LIST changes: -DOXY-342 PO; -DOXY-350 PO; +DOXY-444 PO; +DOXY100C82 PO; +MACR100C43 PO
[2023-05-22] MEDS ORDERED: NS 1,000 ML IV ONE (07:55)
[2023-05-22] MEDS ORDERED: ONDANSETRON 4MG 2ML VIAL IV ONE (07:55)
[2023-05-22] MEDS ORDERED: BENZONATATE 100MG CAPSULE PO ONE (07:55)
[2023-05-22] MEDS ORDERED: KETOROLAC 30 MG/ML 1ML VIAL IV ONE (07:55)
[2023-05-22 08:32] LABS: BASO % 0.7 % (0.0-1.0); EOS # 0.2 10^3/uL (0.0-0.5); EOS % 3.5 % (0.0-3.0); HEMATOCRIT 38.5 % (36.0-47.0); HEMOGLOBIN 13.2 g/dl (12.0-15.5); LYMPH # 1.7 10^3/uL (1.5-5.0); LYMPH % 27.9 % (24.0-44.0); MEAN CORPUSCULAR HEMOGLOBIN 31.2 pg (27.0-33.0); MEAN CORPUSCULAR HGB CONC 34.3 g/dl (32.0-36.5); MONO # 0.6 10^3/uL (0.0-0.8); MONO % 10.1 % (2.0-8.0); NEUTROPHILS # 3.4 10^3/uL (1.5-8.5); NEUTROPHILS % 57.3 % (36.0-66.0); PLATELET COUNT, AUTOMATED 248 10^3/uL (150-450); RED BLOOD COUNT 4.23 10^6/uL (4.00-5.40)
[2023-05-22 08:44] VITALS: TEMP 97.6
[2023-05-22 08:56] LABS: ERYTHROCYTE SEDIMENTATION RATE 19 mm/hr (0-20)
[2023-05-22] MEDS ORDERED: AMOX875T2 PO (10:31)
[2023-05-22] MEDS ORDERED: NAPR-837 PO (10:31)
[2023-05-22] MEDS ORDERED: BENZ200C70 PO (10:31)
[2023-05-22 11:15] VITALS: BP 111/66; O2SAT 98
== END 2023-05-22 11:21 | disposition home or self-care (01) ==
LOC: M ED 23:58
DX: K04.7 Periapical abscess without sinus (principal); R42 Dizziness and giddiness; R05.9 Cough, unspecified; I25.2 Old myocardial infarction; J45.909 Unspecified asthma, uncomplicated; K76.0 Fatty (change of) liver, not elsewhere classified; F17.200 Nicotine dependence, unspecified, uncomplicated; F19.10 Other psychoactive substance abuse, uncomplicated; B19.20 Unspecified viral hepatitis C without hepatic coma; Z88.8 Allergy status to other drugs, medicaments and biological substances; Z79.2 Long term (current) use of antibiotics; Z79.899 Other long term (current) drug therapy
CPT/HCPCS: 71045; 80047; 83605; 85025; 85652; 86140; 96374; 96375; 99284; J1885; J2405

== ENCOUNTER 2023-09-20 03:03 | Emergency (ER) | payer MEDICAID, OTHER ==
[~2023-09-20] VITALS: Ht 157.5 cm; Wt 67.0 kg
[~2023-09-20 03:03] MED LIST changes: +AMOX875T2 PO; +BENZ200C70 PO
[2023-09-20] MEDS ORDERED: IBUP80TA PO (03:08)
[2023-09-20 05:05] LABS: BASO % 0.4 % (0.0-1.0); EOS # 0.1 10^3/uL (0.0-0.5); EOS % 0.9 % (0.0-3.0); HEMATOCRIT 37.3 % (36.0-47.0); HEMOGLOBIN 12.7 g/dl (12.0-15.5); LYMPH # 2.1 10^3/uL (1.5-5.0); LYMPH % 18.9 % (24.0-44.0); MEAN CORPUSCULAR HEMOGLOBIN 31.1 pg (27.0-33.0); MEAN CORPUSCULAR VOLUME 91.4 fl (80.0-96.0); MONO % 8.6 % (2.0-8.0); NEUTROPHILS # 7.9 10^3/uL (1.5-8.5); NEUTROPHILS % 70.1 % (36.0-66.0); PLATELET COUNT, AUTOMATED 350 10^3/uL (150-450); RED BLOOD COUNT 4.08 10^6/uL (4.00-5.40); WHITE BLOOD COUNT 11.3 10^3/uL (4.0-10.0)
[2023-09-20 05:20] LABS: BLOOD UREA NITROGEN 14 MG/DL (9-23); CALCIUM LEVEL 9.1 MG/DL (8.5-10.1); CARBON DIOXIDE LEVEL 26 MMOL/L (20-31); CHLORIDE LEVEL 102 MMOL/L (98-107); GLOMERULAR FILTRATION RATE > 60.0 (>58); GLUCOSE, FASTING 96 MG/DL (60-100); HCG, SERUM QUALITATIVE NEGATIVE (NEGATIVE); POTASSIUM SERUM 4.2 MMOL/L (3.5-5.1); SODIUM LEVEL 135 MMOL/L (136-145)
[2023-09-20] MEDS ORDERED: LIDOCAINE W/EPINEPHRINE 1% 20ML VIAL SC ONE (05:30)
[2023-09-20] MEDS ORDERED: DALBAVANCIN 1,500 MG in D5W 250 ML IV ONE (06:00)
[2023-09-20] MEDS ORDERED: KETO10TAB PO (06:17)
[2023-09-20 07:28] VITALS: TEMP 97.9; O2SAT 100
[2023-09-20 07:30] VITALS: BP 113/67
== END 2023-09-20 07:40 | disposition home or self-care (01) ==
LOC: M ED 03:03
DX: L02.214 Cutaneous abscess of groin (principal); B95.62 Methicillin resistant Staphylococcus aureus infection as the cause of diseases classified elsewhere; R23.8 Other skin changes; K08.89 Other specified disorders of teeth and supporting structures; K76.0 Fatty (change of) liver, not elsewhere classified; B19.20 Unspecified viral hepatitis C without hepatic coma; F17.200 Nicotine dependence, unspecified, uncomplicated; Z88.1 Allergy status to other antibiotic agents; Z79.899 Other long term (current) drug therapy
CPT/HCPCS: 76857; 80048; 84703; 85025; 87040; 87070; 87077; 87186; 87205; 96365; 99284; J0875

== ENCOUNTER 2023-12-02 15:22 | Emergency (ER) | payer MEDICAID, OTHER ==
[~2023-12-02] VITALS: Ht 157.5 cm; Wt 66.9 kg
[~2023-12-02 15:22] MED LIST changes: +IBUP80TA PO
[2023-12-02] MEDS ORDERED: BACT800T5 PO (17:12)
[2023-12-02] MEDS: BACTRIM 160MG/800MG DS TAB PO ONE (17:15)
[2023-12-02 17:24] VITALS: BP 126/72; TEMP 98; O2SAT 99
== END 2023-12-02 17:26 | disposition home or self-care (01) ==
LOC: M ED 15:22
DX: L03.211 Cellulitis of face (principal); I25.2 Old myocardial infarction; J45.909 Unspecified asthma, uncomplicated; C67.9 Malignant neoplasm of bladder, unspecified; B19.20 Unspecified viral hepatitis C without hepatic coma; F19.10 Other psychoactive substance abuse, uncomplicated; Z88.1 Allergy status to other antibiotic agents; Z79.899 Other long term (current) drug therapy

== ENCOUNTER 2024-02-15 00:34 | Emergency (ER) | payer MEDICAID, OTHER ==
[~2024-02-15] VITALS: Ht 157.5 cm; Wt 70.8 kg
[2024-02-15 00:35] VITALS: BP 123/74; TEMP 97.8; O2SAT 99
[2024-02-15] MEDS: TETRACAINE 0.5% OPHTH SOLN 4ML OS ONE (02:45)
[2024-02-15] MEDS: FLUORESCEIN OPHTH 1MG STRIP OS ONE (02:45)
[2024-02-15] MEDS ORDERED: ERYT5OIN25 OS (03:11)
[2024-02-15] MEDS: NORCO 5/325MG TABLET (HOME DOSE PACK) PO ONE (03:22)
[2024-02-15] MEDS: ERYTHROMYCIN OPHTH OINT OS ONE (03:22)
== END 2024-02-15 03:35 | disposition home or self-care (01) ==
LOC: M ED 00:34
DX: S05.02XA Injury of conjunctiva and corneal abrasion without foreign body, left eye, initial encounter (principal); W22.8XXA Striking against or struck by other objects, initial encounter; F17.200 Nicotine dependence, unspecified, uncomplicated; F19.10 Other psychoactive substance abuse, uncomplicated; K76.0 Fatty (change of) liver, not elsewhere classified; B19.20 Unspecified viral hepatitis C without hepatic coma; M54.40 Lumbago with sciatica, unspecified side; F41.9 Anxiety disorder, unspecified; Z88.1 Allergy status to other antibiotic agents; Y92.009 Unspecified place in unspecified non-institutional (private) residence as the place of occurrence of the external cause; Y93.89 Activity, other specified; Y99.9 Unspecified external cause status; Z79.2 Long term (current) use of antibiotics; Z79.899 Other long term (current) drug therapy

== ENCOUNTER → 2024-04-15 | Outpatient (CLI) | payer OTHER ==
[~2024-04-15] MED LIST changes: +DOXY-323 PO; +DOXY-440 PO; -DOXY-443 PO; -DOXY-444 PO; +ERYT5OIN25 OS
[2024-04-15 15:37] LABS: BASO # 0.1 10^3/uL (0.0-0.2); BASO % 0.9 % (0.0-1.0); EOS # 0.2 10^3/uL (0.0-0.5); EOS % 2.4 % (0.0-3.0); HEMATOCRIT 41.2 % (36.0-47.0); HEMOGLOBIN 14.1 g/dl (12.0-15.5); LYMPH # 2.5 10^3/uL (1.5-5.0); LYMPH % 37.7 % (24.0-44.0); MEAN CORPUSCULAR HEMOGLOBIN 31.1 pg (27.0-33.0); MEAN CORPUSCULAR HGB CONC 34.2 g/dl (32.0-36.5); MEAN CORPUSCULAR VOLUME 90.9 fl (80.0-96.0); MONO # 0.7 10^3/uL (0.0-0.8); MONO % 10.4 % (2.0-8.0); NEUTROPHILS # 3.2 10^3/uL (1.5-8.5); NEUTROPHILS % 48.3 % (36.0-66.0); PLATELET COUNT, AUTOMATED 294 10^3/uL (150-450); RED BLOOD COUNT 4.53 10^6/uL (4.00-5.40); WHITE BLOOD COUNT 6.7 10^3/uL (4.0-10.0)
[2024-04-15 16:08] LABS: ALBUMIN 3.8 G/DL (3.2-5.2); ALKALINE PHOSPHATASE 98 U/L (46-116); ALT/SGPT 138 U/L (7.0-40); AST/SGOT 103 U/L (<34); BILIRUBIN,TOTAL 0.4 MG/DL (0.3-1.2); BLOOD UREA NITROGEN 17 MG/DL (9-23); CALCIUM LEVEL 9.5 MG/DL (8.5-10.1); CARBON DIOXIDE LEVEL 26 MMOL/L (20-31); CHLORIDE LEVEL 105 MMOL/L (98-107); CREATININE FOR GFR 0.91 MG/DL (0.55-1.30); GLOMERULAR FILTRATION RATE > 60.0 (>58); GLUCOSE, FASTING 89 MG/DL (60-100); POTASSIUM SERUM 3.9 MMOL/L (3.5-5.1); SODIUM LEVEL 138 MMOL/L (136-145); TOTAL PROTEIN 7.5 G/DL (5.7-8.2)
[2024-04-15 16:21] LABS: HEPATITIS B SURFACE ANTIBODY POSITIVE (POSITIVE)
[2024-04-15 16:34] LABS: HEPATITIS B SURFACE ANTIGEN NEGATIVE (NEGATIVE)
[2024-04-15 16:47] LABS: HIV 1&2 SCREEN NEGATIVE (NEGATIVE)
[2024-04-16 12:12] LABS: HEPATITIS B CORE ANTIBODY IGG NON-REACTIVE (NON-REACTIVE)
[2024-04-16 12:53] LABS: HCV RNA QUANTITATION 11900000 IU/mL (NOT DETECTED); HCV RNA log10 7.08 Log IU/mL (NOT DETECTED)
== END ==
LOC: M PLALAB 11:50
PROVIDERS: ATTEND Internal Medicine Infectious Disease
DX: B18.2 Chronic viral hepatitis C (principal)

== ENCOUNTER 2024-09-05 19:41 | Emergency (ER) | payer MEDICAID, OTHER ==
[~2024-09-05] VITALS: Ht 157.5 cm; Wt 73.6 kg
[~2024-09-05 19:41] MED LIST changes: -DOXY-323 PO; +DOXY-441 PO
[2024-09-05 19:43] VITALS: TEMP 97.3
[2024-09-05 20:59] LABS: BASO # 0.1 10^3/uL (0.0-0.2); BASO % 0.6 % (0.0-1.0); EOS # 0.3 10^3/uL (0.0-0.5); EOS % 2.6 % (0.0-3.0); HEMATOCRIT 41.9 % (36.0-47.0); HEMOGLOBIN 14.4 g/dl (12.0-15.5); LYMPH # 2.7 10^3/uL (1.5-5.0); LYMPH % 23.6 % (24.0-44.0); MEAN CORPUSCULAR HEMOGLOBIN 30.8 pg (27.0-33.0); MEAN CORPUSCULAR HGB CONC 34.4 g/dl (32.0-36.5); MEAN CORPUSCULAR VOLUME 89.5 fl (80.0-96.0); MONO # 1.8 10^3/uL (0.0-0.8); MONO % 15.8 % (2.0-8.0); NEUTROPHILS # 6.4 10^3/uL (1.5-8.5); PLATELET COUNT, AUTOMATED 308 10^3/uL (150-450); RED BLOOD COUNT 4.68 10^6/uL (4.00-5.40); WHITE BLOOD COUNT 11.5 10^3/uL (4.0-10.0)
[2024-09-05 21:18] LABS: LIPASE 66 U/L (12-53)
[2024-09-05 21:20] LABS: ALBUMIN 3.4 G/DL (3.2-5.2); ALKALINE PHOSPHATASE 110 U/L (35-104); ALT/SGPT 165 U/L (7.0-40); AST/SGOT 96 U/L (<34); BILIRUBIN,DIRECT 0.1 MG/DL (<0.4); BILIRUBIN,TOTAL 0.3 MG/DL (0.3-1.2); BLOOD UREA NITROGEN 19 MG/DL (9-23); CARBON DIOXIDE LEVEL 23 MMOL/L (20-31); CHLORIDE LEVEL 106 MMOL/L (98-107); CREATININE FOR GFR 0.82 MG/DL (0.55-1.30); GLOMERULAR FILTRATION RATE > 60.0 (>58); GLUCOSE, FASTING 94 MG/DL (60-100); POTASSIUM SERUM 4.6 MMOL/L (3.5-5.1); SODIUM LEVEL 138 MMOL/L (136-145); TOTAL PROTEIN 7.7 G/DL (5.7-8.2)
[2024-09-05 22:18] LABS: Trichomonas vaginalis (AMP) NOT DETECTED (NEGATIVE)
[2024-09-05 22:42] LABS: GC DNA AMPLIFICATION NEGATIVE (NEGATIVE)
[2024-09-05] MEDS ORDERED: CEFD300C PO (23:06)
[2024-09-05 23:15] VITALS: BP 128/74; O2SAT 98
[2024-09-05] MEDS: LIDOCAINE 1% SDV 5ML VIAL DILUENT ONE (23:21)
[2024-09-05] MEDS: cefTRIAXone SOD 2GM VIAL IM ONE (23:21)
== END 2024-09-05 23:42 | disposition home or self-care (01) ==
LOC: M ED 19:41
DX: N39.0 Urinary tract infection, site not specified (principal); F19.10 Other psychoactive substance abuse, uncomplicated; B19.20 Unspecified viral hepatitis C without hepatic coma; F17.200 Nicotine dependence, unspecified, uncomplicated; Z79.2 Long term (current) use of antibiotics; Z79.899 Other long term (current) drug therapy
CPT/HCPCS: 80048; 80076; 81001; 83690; 85025; 87088; 87186; 87661; 87810; 87850; 96372; 99283; J0696

== ENCOUNTER → 2024-11-04 | Outpatient (CLI) | payer OTHER ==
[~2024-11-04] MED LIST changes: +CEFD300C PO
[2024-11-04 14:53] LABS: BASO % 0.6 % (0.0-1.0); EOS # 0.2 10^3/uL (0.0-0.5); EOS % 2.1 % (0.0-3.0); HEMATOCRIT 40.5 % (36.0-47.0); HEMOGLOBIN 13.9 g/dl (12.0-15.5); LYMPH # 2.5 10^3/uL (1.5-5.0); LYMPH % 34.9 % (24.0-44.0); MEAN CORPUSCULAR HGB CONC 34.3 g/dl (32.0-36.5); MEAN CORPUSCULAR VOLUME 90.4 fl (80.0-96.0); MONO # 0.8 10^3/uL (0.0-0.8); NEUTROPHILS # 3.7 10^3/uL (1.5-8.5); NEUTROPHILS % 51.1 % (36.0-66.0); PLATELET COUNT, AUTOMATED 276 10^3/uL (150-450); RED BLOOD COUNT 4.48 10^6/uL (4.00-5.40); WHITE BLOOD COUNT 7.2 10^3/uL (4.0-10.0)
[2024-11-04 15:30] LABS: ALBUMIN 3.8 G/DL (3.2-5.2); ALKALINE PHOSPHATASE 106 U/L (35-104); ALT/SGPT 133 U/L (7.0-40); AST/SGOT 98 U/L (<34); BILIRUBIN,TOTAL 0.4 MG/DL (0.3-1.2); BLOOD UREA NITROGEN 19 MG/DL (9-23); CALCIUM LEVEL 9.5 MG/DL (8.5-10.1); CARBON DIOXIDE LEVEL 25 MMOL/L (20-31); CHLORIDE LEVEL 108 MMOL/L (98-107); CREATININE FOR GFR 0.84 MG/DL (0.55-1.30); GLOMERULAR FILTRATION RATE > 60.0 (>58); GLUCOSE, FASTING 84 MG/DL (60-100); POTASSIUM SERUM 4.2 MMOL/L (3.5-5.1); SODIUM LEVEL 140 MMOL/L (136-145); TOTAL PROTEIN 7.7 G/DL (5.7-8.2)
== END ==
LOC: M PLALAB 13:56
PROVIDERS: ATTEND Internal Medicine Infectious Disease
DX: B18.2 Chronic viral hepatitis C (principal)

== ENCOUNTER 2024-11-29 20:42 | Emergency (ER) | payer OTHER ==
[~2024-11-29] VITALS: Ht 157.5 cm; Wt 79.2 kg
[2024-11-29 23:03] VITALS: TEMP 97.8
[2024-11-29] MEDS: LIDOCAINE 1% MDV 20ML VIAL SC ONE (23:25)
[2024-11-29] MEDS: KETOROLAC 30 MG/ML 1ML VIAL IV ONE (23:42)
[2024-11-29] MEDS: DALBAVANCIN 1,500 MG in D5W 250 ML IV ONE (23:45)
[2024-11-30 02:11] VITALS: BP 114/72; O2SAT 100
== END 2024-11-30 02:13 | disposition home or self-care (01) ==
LOC: M ED 20:42
DX: L03.211 Cellulitis of face (principal); L02.811 Cutaneous abscess of head [any part, except face]; B19.20 Unspecified viral hepatitis C without hepatic coma; F17.200 Nicotine dependence, unspecified, uncomplicated; Z88.8 Allergy status to other drugs, medicaments and biological substances; Z79.2 Long term (current) use of antibiotics; Z79.899 Other long term (current) drug therapy
CPT/HCPCS: 80047; 87070; 87077; 87186; 87205; 96365; 96366; 96375; 99284; J0875; J1885

== ENCOUNTER 2024-12-18 04:28 | Emergency (ER) | payer OTHER ==
[~2024-12-18] VITALS: Ht 157.5 cm; Wt 79.4 kg
[2024-12-18 07:47] VITALS: BP 115/82; TEMP 97; O2SAT 100
== END 2024-12-18 09:05 | disposition left against medical advice (07) ==
LOC: M ED 04:28
DX: Z53.21 Procedure and treatment not carried out due to patient leaving prior to being seen by health care provider (principal)

== ENCOUNTER → 2025-01-16 | Outpatient (CLI) | payer OTHER ==
[~2025-01-16] MED LIST changes: +DOXY-442 PO; -DOXY100C82 PO
== END ==
LOC: M RAD 07:14
PROVIDERS: ATTEND Internal Medicine Infectious Disease
DX: B18.2 Chronic viral hepatitis C (principal); K76.89 Other specified diseases of liver; Z90.49 Acquired absence of other specified parts of digestive tract

== ENCOUNTER 2025-02-09 20:15 | Emergency (ER) | payer OTHER ==
[~2025-02-09] VITALS: Ht 157.5 cm; Wt 79.1 kg
[2025-02-09 21:24] VITALS: TEMP 97.8
[2025-02-09] MEDS: ACETAMINOPHEN 325 MG TAB PO ONE (21:30)
[2025-02-09] MEDS: NS 500 ML IV ONE (21:42)
[2025-02-09 21:49] LABS: BASO # 0.1 10^3/uL (0.0-0.2); BASO % 0.7 % (0.0-1.0); EOS # 0.2 10^3/uL (0.0-0.5); EOS % 2.2 % (0.0-3.0); HEMATOCRIT 39.6 % (36.0-47.0); HEMOGLOBIN 13.8 g/dl (12.0-15.5); LYMPH # 2.9 10^3/uL (1.5-5.0); LYMPH % 32.6 % (24.0-44.0); MEAN CORPUSCULAR HGB CONC 34.8 g/dl (32.0-36.5); MONO # 0.8 10^3/uL (0.0-0.8); MONO % 8.4 % (2.0-8.0); NEUTROPHILS % 55.5 % (36.0-66.0); PLATELET COUNT, AUTOMATED 333 10^3/uL (150-450); RED BLOOD COUNT 4.45 10^6/uL (4.00-5.40)
[2025-02-09 22:21] LABS: ALBUMIN 4.3 G/DL (3.2-5.2); ALKALINE PHOSPHATASE 115 U/L (35-104); ALT/SGPT 19 U/L (7.0-40); AST/SGOT 23 U/L (<34); BILIRUBIN,DIRECT < 0.1 MG/DL (<0.4); BILIRUBIN,TOTAL 0.3 MG/DL (0.3-1.2); BLOOD UREA NITROGEN 16 MG/DL (9-23); CALCIUM LEVEL 9.3 MG/DL (8.5-10.1); CARBON DIOXIDE LEVEL 24 MMOL/L (20-31); CHLORIDE LEVEL 107 MMOL/L (98-107); CREATININE FOR GFR 0.81 MG/DL (0.55-1.30); GLOMERULAR FILTRATION RATE > 90.0 (>58); GLUCOSE, FASTING 99 MG/DL (60-100); SODIUM LEVEL 138 MMOL/L (136-145); TOTAL PROTEIN 7.7 G/DL (5.7-8.2)
[2025-02-09] MEDS ORDERED: DOXY-440 PO (22:44)
[2025-02-09 23:00] VITALS: BP 121/73; O2SAT 99
[2025-02-09] MEDS: DOXYCYCLINE HYCLATE 100MG TABLET PO ONE (23:00)
== END 2025-02-09 23:05 | disposition home or self-care (01) ==
LOC: M ED 20:15
DX: H53.19 Other subjective visual disturbances (principal); L66.2 Folliculitis decalvans; F32.A Depression, unspecified; F41.9 Anxiety disorder, unspecified; F17.210 Nicotine dependence, cigarettes, uncomplicated; Z88.1 Allergy status to other antibiotic agents; Z79.2 Long term (current) use of antibiotics

== ENCOUNTER → 2025-03-03 | Outpatient (REF) | payer OTHER | LOC: M SFHCDERM 16:57 | PROVIDERS: ATTEND Physician Assistant | DX: L73.9 Follicular disorder, unspecified (principal) ==

== ENCOUNTER → 2025-03-06 | Outpatient (CLI) | payer OTHER ==
[2025-03-06 17:32] LABS: BASO # 0.1 10^3/uL (0.0-0.2); BASO % 0.8 % (0.0-1.0); EOS # 0.1 10^3/uL (0.0-0.5); EOS % 1.5 % (0.0-3.0); HEMATOCRIT 38.1 % (36.0-47.0); HEMOGLOBIN 12.9 g/dl (12.0-15.5); LYMPH # 3.3 10^3/uL (1.5-5.0); LYMPH % 37.8 % (24.0-44.0); MEAN CORPUSCULAR HEMOGLOBIN 29.9 pg (27.0-33.0); MEAN CORPUSCULAR HGB CONC 33.9 g/dl (32.0-36.5); MEAN CORPUSCULAR VOLUME 88.4 fl (80.0-96.0); MONO # 0.7 10^3/uL (0.0-0.8); NEUTROPHILS # 4.5 10^3/uL (1.5-8.5); NEUTROPHILS % 51.1 % (36.0-66.0); PLATELET COUNT, AUTOMATED 343 10^3/uL (150-450); RED BLOOD COUNT 4.31 10^6/uL (4.00-5.40); WHITE BLOOD COUNT 8.7 10^3/uL (4.0-10.0)
[2025-03-06 17:57] LABS: BILIRUBIN,TOTAL 0.4 MG/DL (0.3-1.2); CALCIUM LEVEL 9.6 MG/DL (8.5-10.1); CREATININE FOR GFR 0.93 MG/DL (0.55-1.30); GLOMERULAR FILTRATION RATE 76.8 (>58); POTASSIUM SERUM 4.1 MMOL/L (3.5-5.1); TOTAL PROTEIN 7.5 G/DL (5.7-8.2)
== END ==
LOC: M PLAIMG 15:49
PROVIDERS: ATTEND Nurse Practitioner Family
DX: R10.84 Generalized abdominal pain (principal)

== ENCOUNTER → 2025-03-12 | Outpatient (CLI) | payer OTHER | LOC: M WHC 14:47 | PROVIDERS: ATTEND Nurse Practitioner Family | DX: Z12.31 Encounter for screening mammogram for malignant neoplasm of breast (principal); R92.323 Mammographic fibroglandular density, bilateral breasts ==

== ENCOUNTER → 2025-07-10 | Outpatient (CLI) | payer OTHER ==
[~2025-07-10] MED LIST changes: +ABIL1TAB12 PO; +VENL75CA47 PO; +WELLTAB38 PO
[2025-07-10 14:02] LABS: PLATELET COUNT, AUTOMATED 293 10^3/uL (150-450)
[2025-07-10 14:21] LABS: ALT/SGPT 18.0 U/L (7.0-40); AST/SGOT 23.0 U/L (<34); CALCIUM LEVEL 9.1 MG/DL (8.5-10.1); CARBON DIOXIDE LEVEL 27.0 MMOL/L (20-31); CHLORIDE LEVEL 107.0 MMOL/L (98-107); CREATININE FOR GFR 0.91 MG/DL (0.55-1.30); GLOMERULAR FILTRATION RATE 78.8 (>58); POTASSIUM SERUM 4.2 MMOL/L (3.5-5.1); SODIUM LEVEL 140.0 MMOL/L (136-145)
== END ==
LOC: M PLALAB 11:34
DX: B18.2 Chronic viral hepatitis C (principal)

== ENCOUNTER → 2025-08-14 | Outpatient (CLI) | payer OTHER | LOC: M PLAIMG 14:38 | PROVIDERS: ATTEND Nurse Practitioner Family | DX: M25.561 Pain in right knee (principal) ==

== ENCOUNTER → 2025-10-05 | Outpatient (CLI) | payer OTHER ==
[2025-10-05 18:40] LABS: LUTEINIZING HORMONE 44.7 mIU/ML
[2025-10-05 18:41] LABS: PROLACTIN 4.28 NG/ML
[2025-10-05 18:49] LABS: HCG, SERUM QUALITATIVE NEGATIVE (NEGATIVE)
== END ==
LOC: M LAB 17:16
PROVIDERS: ATTEND Physician Assistant
DX: N91.2 Amenorrhea, unspecified (principal)